=== PATIENT | female | born 1935 | race Caucasian/White ===

== ENCOUNTER 2017-03-10 14:10 | Inpatient (IN) | payer MEDICARE, MEDICAID ==
[2017-03-10 14:38] LABS: ABSOLUTE EOSINOPHILS # (AUTO) 0.1 10^3/uL (0.0-0.6); ABSOLUTE LYMPHOCYTES (AUTO) 1.1 10^3/uL (0.5-4.7); ABSOLUTE MONOCYTES (AUTO) 0.4 10^3/uL (0.1-1.4); ABSOLUTE NEUT (AUTO) 4.5 10^3/uL (1.7-8.2); BASOPHILS % (AUTO) 0.6 % (0-2); EOSINOPHILS % (AUTO) 1.1 % (0-6); HEMATOCRIT 32.1 % (36.0-47.0); HEMOGLOBIN 10.1 g/dL (12.0-15.5); HGB HCT DIFFERENCE -1.8; LYMPHOCYTES % (AUTO) 17.3 % (13-45); MEAN CORPUSCULAR HEMOGLOBIN 27.7 pg (27.0-33.4); MEAN CORPUSCULAR HGB CONC 31.5 g/dL (32.0-36.0); MEAN CORPUSCULAR VOLUME 88 fl (80-97); MONOCYTES % (AUTO) 6.6 % (3-13); RED BLOOD COUNT 3.64 10^6/uL (3.72-5.28); RED CELL DISTRIBUTION WIDTH 17.7 % (11.5-14.0); SEGMENTED NEUTROPHILS % (AUTO) 74.4 % (42-78); WHITE BLOOD COUNT 6.1 10^3/uL (4.0-10.5)
--- NOTE | 2017-03-10 14:48 | ER Document Report ---
ED General - General Chief Complaint: Chest Pain Stated Complaint: CHEST PAIN Time Seen by Provider: 03/10/17 14:13 Mode of Arrival: Medic Information source: Patient Notes: 81-year-old female history of ATab ivy presents with complaints of midsternal chest pain. Patient notes she has CHF is on 2 L nasal cannula at home, has increased it to 3-4 L over the past 3 days. Patient notes lower extremity edema Patient was given nitroglycerin for her chest pain has resolved TRAVEL OUTSIDE OF THE [place] IN LAST 30 DAYS: No - HPI Onset: Other - 3 day duration Onset/Duration: Persistent Quality of pain: Achy Severity: Moderate Pain Level: 3 Associated symptoms: Chest pain, Shortness of breath Exacerbated by: Denies Relieved by: Denies Similar symptoms previously: Yes Recently seen / treated by doctor: Yes - Related Data Allergies/Adverse Reactions: No Known Allergies Allergy (Verified 03/10/17 14:42) Past Medical History - Social History Smoking Status: Never Smoker Cigarette use (# per day): No Chew tobacco use (# tins/day): No Smoking Education Provided: No Family History: Reviewed & Not Pertinent - Past Medical History Cardiac Medical History: Reports: Hx Atrial Fibrillation, Hx Congestive Heart Failure, Hx Hypercholesterolemia, Hx Hypertension Pulmonary Medical History: Reports: Hx Asthma, Hx COPD, Hx Pneumonia Endocrine Medical History: Reports: Hx Diabetes Mellitus Type 2 GI Medical History: Reports: Hx Gastroesophageal Reflux Disease Musculoskeltal Medical History: Reports Hx Arthritis - HANDS AND KNEES Psychiatric Medical History: Reports: Hx Depression Past Surgical History: Reports: Hx Cardiac Catheterization, Hx Hysterectomy, Hx Orthopedic Surgery - B/L knee replacement, Hx Vascular Surgery - Immunizations Hx Diphtheria, Pertussis, Tetanus Vaccination: No Hx Pneumococcal Vaccination: 10/08/14 Review of Systems - Review of Systems Notes: REVIEW OF SYSTEMS: CONSTITUTIONAL : Denies fever, chills, or sweats. Denies recent illness. EENT: Denies eye, ear, throat, or mouth pain or symptoms. Denies nasal or sinus congestion or discharge. Denies throat, tongue, or mouth swelling or difficulty swallowing. CARDIOVASCULAR: Admits to chest pain RESPIRATORY: Admits to shortness of breath GASTROINTESTINAL: Denies abdominal pain or distention. Denies nausea, vomiting , or diarrhea. Denies blood in vomitus, stools, or per rectum. Denies black, tarry stools. Denies constipation. GENITOURINARY: Denies difficulty urinating, painful urination, burning, frequency, blood in urine, or discharge. FEMALE GENITOURINARY: Denies vaginal bleeding, heavy or abnormal periods, irregular periods. Denies vaginal discharge or odor. MUSCULOSKELETAL: Denies back or neck pain or stiffness. Denies joint pain or swelling. SKIN: Denies rash, lesions or sores. HEMATOLOGIC : Denies easy bruising or bleeding. LYMPHATIC: Denies swollen, enlarged glands. NEUROLOGICAL: Denies confusion or altered mental status. Denies passing out or loss of consciousness. Denies dizziness or lightheadedness. Denies headache. Denies weakness or paralysis or loss of use of either side. Denies problems with gait or speech. Denies sensory loss, numbness, or tingling. Denies seizures. PSYCHIATRIC: Denies anxiety or stress. Denies depression, suicidal ideation, or homicidal ideation. ALL OTHER SYSTEMS REVIEWED AND NEGATIVE. Dictation was performed using [employer] voice recognition software PHYSICAL EXAMINATION: GENERAL: Well-appearing, well-nourished and in no acute distress. HEAD: Atraumatic, normocephalic. EYES: Pupils equal round and reactive to light, extraocular movements intact, conjunctiva are normal. ENT: Nares patent, oropharynx clear without exudates. Moist mucous membranes. NECK: Normal range of motion, supple without lymphadenopathy LUNGS: Rhonchi at the bases HEART: irregular rate and rhythm without murmurs ABDOMEN: Soft, nontender, nondistended abdomen. No guarding, no rebound. No masses appreciated. Female : deferred Musculoskeletal: Bilateral lower extremity edema NEUROLOGICAL: Cranial nerves grossly intact. Normal speech, normal gait. Normal sensory, motor exams PSYCH: Normal mood, normal affect. SKIN: Warm, Dry, normal turgor, no rashes or lesions noted. Physical Exam - Vital signs Vitals: Pulse Ox 96 03/10/17 14:16 Course - Re-evaluation Re-evalutation: 03/10/17 14:48 Patient is in A. fib rate between 90s-110 otherwise well-appearing, will admit for chest pain and chf exacerbation 03/10/17 17:49 - Vital Signs Vital signs: Temp Pulse Resp BP Pulse Ox 98.9 F 96 21 H 125/62 98 03/10/17 14:31 03/10/17 14:31 03/10/17 16:00 03/10/17 16:00 03/10/17 16:01 - Laboratory Result Diagrams: 03/10/17 14:20 03/10/17 14:20 Laboratory results interpreted by me: 03/10/17 03/10/17 03/10/17 14:20 14:20 14:20 RBC 3.64 L Hgb 10.1 L Hct 32.1 L MCHC 31.5 L RDW 17.7 H Glucose 139 H NT-Pro-B Natriuret Pep 1470 H - Diagnostic Test Radiology reviewed: Image reviewed, Reports reviewed - EKG Interpretation by Me EKG shows normal: Sinus rhythm, [place], Intervals, QRS Complexes Rhythm: A.Fib Discharge - Discharge Clinical Impression: Congestive heart failure, Hypoxia, Chronic atrial fibrillation Chest pain Qualifiers: Chest pain type: unspecified Qualified Code(s): R07.9 - Chest pain, unspecified Admitting Provider: Hospitalist Unit Admitted: [facility]
[2017-03-10 14:58] LABS: ALANINE AMINOTRANSFERASE 33 U/L (9-52); ALBUMIN 3.5 g/dL (3.5-5.0); ALKALINE PHOSPHATASE 76 U/L (38-126); ANION GAP 11 (5-19); ASPARTATE AMINO TRANSFERASE 30 U/L (14-36); BILIRUBIN,DIRECT 0.3 mg/dL (0.0-0.4); BILIRUBIN,TOTAL 0.7 mg/dL (0.2-1.3); BLOOD UREA NITROGEN 20 mg/dL (7-20); CALCIUM 8.8 mg/dL (8.4-10.2); CARBON DIOXIDE 30 mmol/L (22-30); CHLORIDE 103 mmol/L (98-107); CREATINE KINASE 38 U/L (30-135); GLUCOSE 139 mg/dL (75-110); POTASSIUM 4.1 mmol/L (3.6-5.0); SODIUM 144.4 mmol/L (137-145); TOTAL PROTEIN 7.1 g/dL (6.3-8.2)
[2017-03-10 15:07] LABS: TROPONIN I < 0.012 ng/mL
--- NOTE | 2017-03-10 15:39 | RADIOLOGY REPORT (SQ) ---
EXAM DESCRIPTION: CHEST SINGLE VIEW COMPLETED DATE/TIME: 03/10/2017 2:48 pm REASON FOR STUDY: bed 1 cp COMPARISON: CT chest 12/14/2015, 05/11/2016 Chest films 08/13/2007, 12/14/2015, 06/06/2016 EXAM PARAMETERS: NUMBER OF VIEWS: One view. TECHNIQUE: Single frontal radiographic view of the chest acquired. RADIATION DOSE: NA LIMITATIONS: None. FINDINGS: LUNGS AND PLEURA: No opacities, masses or pneumothorax. No pleural effusion. MEDIASTINUM AND HILAR STRUCTURES: No masses. Contour normal. HEART AND VASCULAR STRUCTURES: Stable mild to moderate cardiomegaly, tortuous uncoiled thoracic aorta unchanged BONES: No acute findings. HARDWARE: None in the chest. OTHER: No other significant finding. IMPRESSION: Stable cardiomegaly. No acute findings TECHNICAL DOCUMENTATION: JOB ID: [id number]
[2017-03-10] MEDS ORDERED: FUROSEMIDE INJ/PF 40 MG/4 ML SDV IV ONE (15:46)
[2017-03-10] MEDS ORDERED: ACETAMINOPHEN 325 MG TABLET PO PRN (16:41)
[2017-03-10] MEDS ORDERED: DEXTROSE 40% GEL 15 GM TUBE PO PRN ×2 (16:45)
[2017-03-10] MEDS ORDERED: ALBUTEROL SULFATE 0.083% NEB 2.5 MG/3 ML AMPUL NEB PRN (16:45)
[2017-03-10] MEDS ORDERED: DEXTROSE 50%-WATER 25 GM/50 ML DISP.SYRIN IV PRN ×2 (16:45)
[2017-03-10] MEDS ORDERED: GLUCAGON,HUMAN RECOMB 1 MG INJ IM PRN (16:45)
[2017-03-10] MEDS ORDERED: INSULIN LISPRO 100 UNIT/ML 3 ML VIAL SUBCUT PRN (16:45)
--- NOTE | 2017-03-10 17:01 | PDOC H&P ---
History of Present Illness Admission Date/PCP: 03/10/17 16:23 PCP: Lexi Yap MD Cardiology Dr. No Patient complains of: Shortness of breath, chest pain History of Present Illness: RACHEL LAN is a 81 year old female with past medical history of CHF, atrial fibrillation, COPD, diabetes, hypertension presents with chronic lower extremity edema and shortness of breath. Over the past several days she has had worsening shortness of breath and chest pressure. She has chronic oxygen dependent at baseline on 2 L nasal cannula, however more recently she has had increased to 4 L nasal cannula. Past Medical History Cardiac Medical History: Reports: Atrial Fibrillation, Congestive Heart Failure , Hyperlipidema, Hypertension Pulmonary Medical History: Reports: Chronic Obstructive Pulmonary Disease (COPD) , Pneumonia Endocrine Medical History: Reports: Diabetes Mellitus Type 2 GI Medical History: Reports: Gastroesophageal Reflux Disease Musculoskeltal Medical History: Reports: Arthritis - HANDS AND KNEES Psychiatric Medical History: Reports: Depression Hematology: Denies: Anemia Past Surgical History Past Surgical History: Reports: Cardiac Catheterization, Hysterectomy, Orthopedic Surgery - B/L knee replacement, Vascular Surgery Social History Information Source: Patient Lives with: Family Smoking Status: Never Smoker Frequency of Alcohol Use: None Hx Recreational Drug Use: No Drugs: None Hx Prescription Drug Abuse: No - Advance Directive Resuscitation Status: Full Code Family History Family History: DM Parental Family History Reviewed: Yes Children Family History Reviewed: Yes Sibling(s) Family History Reviewed.: Yes Medication/Allergy Home Medications: Atorvastatin Calcium 40 mg PO QHS 11/19/15 Gabapentin 300 mg PO DAILY 11/19/15 Lisinopril 20 mg PO BID 11/19/15 Metformin HCl 500 mg PO DAILY 11/19/15 Paroxetine HCl [Paxil] 10 mg PO DAILY 11/19/15 Ranitidine HCl 300 mg PO QHS 11/19/15 Apixaban [Eliquis 5 mg Tablet] 5 mg PO BID 12/14/15 Metoprolol Tartrate [Lopressor 25 mg Tablet] 12.5 mg PO Q12 12/14/15 Albuterol Sulfate [Ventolin 0.083% Neb 2.5 mg/3 mL Ampul] 2.5 mg NEB RTQ4HP PRN vial.neb 12/17/15 Furosemide [Lasix 40 mg Tablet] 40 mg PO DAILY #30 tablet 12/17/15 Ipratropium/Albuterol Sulfate [Combivent Inhaler] 14.7 gm IH QID #1 aer.w.adap 12/17/15 Amox Tr/Potassium Clavulanate [Augmentin "500" Tablet] 1 tab PO Q8 #15 tablet 05/17/16 Diltiazem HCl [Cardizem Cd 120 mg Capsule] 120 mg PO Q12 #60 cap.sr.24h Omeprazole 40 mg PO BID #28 capsule. 05/17/16 Allergies/Adverse Reactions: No Known Allergies Allergy (Verified 03/10/17 14:42) Review of Systems Constitutional: ABSENT: chills, fever(s), headache(s), weight gain, weight loss Eyes: ABSENT: visual disturbances Ears: ABSENT: hearing changes Cardiovascular: PRESENT: chest pain, dyspnea on exertion, edema. ABSENT: orthropnea, palpitations Respiratory: PRESENT: dyspnea. ABSENT: cough, hemoptysis Gastrointestinal: ABSENT: abdominal pain, constipation, diarrhea, hematemesis, hematochezia, nausea, vomiting Genitourinary: ABSENT: dysuria, hematuria Musculoskeletal: ABSENT: joint swelling Integumentary: ABSENT: rash, wounds Neurological: ABSENT: abnormal gait, abnormal speech, confusion, dizziness, focal weakness, syncope Psychiatric: ABSENT: anxiety, depression, homidical ideation, suicidal ideation Endocrine: ABSENT: cold intolerance, heat intolerance, polydipsia, polyuria Hematologic/Lymphatic: ABSENT: easy bleeding, easy bruising Physical Exam Vital Signs: Temp Pulse Resp BP Pulse Ox 98.9 F 96 20 116/67 97 03/10/17 14:31 03/10/17 14:31 03/10/17 15:01 03/10/17 15:01 03/10/17 15:01 PHYSICAL EXAM: GENERAL: Appears well, no acute distress HEENT: Normocephalic, no scleral icterus, conjunctiva clear, EOEM intact, PERRLA , moist mucous membranes NECK: trachea midline, no thyromegally RESPIRATORY: Crackles in posterior lung bases CARDIAC: Irregular rhythm, normal rate ABDOMEN: Soft, no distension, no tenderness, no guarding, normal bowel sounds, negative Grace sign RECTAL: deferred : deferred EXTREMITIES: 3+ bilateral lower extremity edema MUSCULOSKELETAL: No joint swelling or deformity VASCULAR: normal peripheral pulses NEUROLOGIC: Alert, oriented to person/place/time, normal speech, cranial nerves grossly intact, 5/5 strength in all extremities, tactile sensation intact in all extremities SKIN: No rash, no wounds, no worrisome skin lesions PSYCHIATRIC: Normal mood, normal affect Results Laboratory Results: Labs- All tests 24 hr 03/10/17 03/10/17 03/10/17 14:20 14:20 14:20 WBC 6.1 RBC 3.64 L Hgb 10.1 L Hct 32.1 L MCV 88 MCH 27.7 MCHC 31.5 L RDW 17.7 H Plt Count 176 Seg Neutrophils % 74.4 Lymphocytes % 17.3 Monocytes % 6.6 Eosinophils % 1.1 Basophils % 0.6 Absolute Neutrophils 4.5 Absolute Lymphocytes 1.1 Absolute Monocytes 0.4 Absolute Eosinophils 0.1 Absolute Basophils 0.0 Sodium 144.4 Potassium 4.1 Chloride 103 Carbon Dioxide 30 Anion Gap 11 BUN 20 Creatinine 0.90 Est GFR ( Amer) > 60 Est GFR (Non-Af Amer) > 60 Glucose 139 H Calcium 8.8 Total Bilirubin 0.7 Direct Bilirubin 0.3 Indirect Bilirubin Not Reportable Neonat Total Bilirubin Not Reportable AST 30 ALT 33 Alkaline Phosphatase 76 Creatine Kinase 38 CK-MB (CK-2) 0.50 Troponin I < 0.012 NT-Pro-B Natriuret Pep Total Protein 7.1 Albumin 3.5 TSH 03/10/17 03/10/17 14:20 14:20 WBC RBC Hgb Hct MCV MCH MCHC RDW Plt Count Seg Neutrophils % Lymphocytes % Monocytes % Eosinophils % Basophils % Absolute Neutrophils Absolute Lymphocytes Absolute Monocytes Absolute Eosinophils Absolute Basophils Sodium Potassium Chloride Carbon Dioxide Anion Gap BUN Creatinine Est GFR ( Amer) Est GFR (Non-Af Amer) Glucose Calcium Total Bilirubin Direct Bilirubin Indirect Bilirubin Neonat Total Bilirubin AST ALT Alkaline Phosphatase Creatine Kinase CK-MB (CK-2) Troponin I NT-Pro-B Natriuret Pep 1470 H Total Protein Albumin TSH 1.40 Impressions: Chest X-Ray 03/10/17 14:13 IMPRESSION: Stable cardiomegaly. No acute findings Assessment & Plan - Diagnosis (1) Chest pain Qualifiers: Chest pain type: unspecified Qualified Code(s): R07.9 - Chest pain, unspecified Is this a current diagnosis for this admission?: YesPlan: Monitor on telemetry. Serial cardiac enzymes to rule out [place]. PE unlikely given the fact the patient on full anticoagulation at baseline. (2) Acute on chronic respiratory failure with hypoxemia Is this a current diagnosis for this admission?: YesPlan: Likely multifactorial in nature to include COPD and decompensated CHF. Chronic home oxygen dependent at baseline. (3) Acute diastolic CHF (congestive heart failure) Is this a current diagnosis for this admission?: YesPlan: Echocardiogram performed 05/15/2016 showed normal EF, LVH, mild to moderate mitral regurgitation, unable to assess diastolic function secondary to atrial fibrillation. Start Lasix 40 mg IV every 12 hours. Monitor intake and output, daily weight. Continue metoprolol and lisinopril. Followed by Dr. No of cardiology as an outpatient. (4) Diabetes Qualifiers: Diabetes mellitus type: type 2 Diabetes mellitus complication detail: with other circulatory complications Diabetes mellitus intermediate manager insulin use : without intermediate manager use Is this a current diagnosis for this admission?: YesPlan: Continue metformin. Sliding scale insulin. (5) Chronic atrial fibrillation Is this a current diagnosis for this admission?: YesPlan: Heart rate stable on metoprolol. Continue Eliquis. (6) COPD (chronic obstructive pulmonary disease) Qualifiers: COPD type: unspecified COPD Qualified Code(s): J44.9 - Chronic obstructive pulmonary disease, unspecified Is this a current diagnosis for this admission?: YesPlan: As needed albuterol. - Time Time Spent: Greater than 70 Minutes
[2017-03-10] MEDS: APIXABAN 5 MG TABLET PO SCH (18:00)
[2017-03-10] MEDS: FUROSEMIDE INJ/PF 20 MG/2 ML SDV IV SCH (18:01)
[2017-03-10 21:02] LABS: CREATINE KINASE MB 0.63 ng/mL (<4.55)
[2017-03-10 21:06] LABS: TROPONIN I < 0.012 ng/mL
[2017-03-10] MEDS: ATORVASTATIN CALCIUM 40 MG TABLET PO SCH (21:33)
[2017-03-10] MEDS: FAMOTIDINE 20 MG TABLET PO SCH (21:33)
[2017-03-10] MEDS: LISINOPRIL 10 MG TABLET PO SCH (21:33)
[2017-03-10] MEDS: METOPROLOL TARTRATE 25 MG TABLET PO SCH (21:34)
[2017-03-11 02:45] LABS: ABSOLUTE EOSINOPHILS # (AUTO) 0.1 10^3/uL (0.0-0.6); ABSOLUTE LYMPHOCYTES (AUTO) 1.3 10^3/uL (0.5-4.7); ABSOLUTE MONOCYTES (AUTO) 0.3 10^3/uL (0.1-1.4); ABSOLUTE NEUT (AUTO) 3.6 10^3/uL (1.7-8.2); BASOPHILS % (AUTO) 0.8 % (0-2); HEMATOCRIT 31.4 % (36.0-47.0); HEMOGLOBIN 9.7 g/dL (12.0-15.5); HGB HCT DIFFERENCE -2.3; LYMPHOCYTES % (AUTO) 24.7 % (13-45); MEAN CORPUSCULAR HEMOGLOBIN 27.3 pg (27.0-33.4); MEAN CORPUSCULAR VOLUME 88 fl (80-97); MONOCYTES % (AUTO) 6.2 % (3-13); RED BLOOD COUNT 3.55 10^6/uL (3.72-5.28); RED CELL DISTRIBUTION WIDTH 16.9 % (11.5-14.0); SEGMENTED NEUTROPHILS % (AUTO) 66.3 % (42-78); WHITE BLOOD COUNT 5.4 10^3/uL (4.0-10.5)
[2017-03-11 03:08] LABS: CREATINE KINASE MB 0.75 ng/mL (<4.55)
[2017-03-11 03:12] LABS: FREE T3 2.9 pg/mL (2.77-5.27)
[2017-03-11 03:18] LABS: TROPONIN I < 0.012 ng/mL
[2017-03-11 03:26] LABS: THYROID STIMULATING HORMONE 1.13 uIU/mL (0.47-4.68)
[2017-03-11] MEDS: FUROSEMIDE INJ/PF 20 MG/2 ML SDV IV SCH ×2 (05:17→17:56)
[2017-03-11] MEDS: LANSOPRAZOLE 30 MG TAB.RAP.DR PO SCH ×2 (08:37→16:09)
--- NOTE | 2017-03-11 09:20 | PDOC PROGRESS REPORT ---
Subjective Progress Note for:: 03/11/17 Subjective:: Patient feels generally better and shortness of breath has improved. She states she is having good urine output with IV Lasix. She is sitting in the bedside chair in no distress. Patient denies fever, chills, headache, new focal weakness, chest pain, abdominal pain, nausea, vomiting, diarrhea, constipation. Physical Exam Vital Signs: Temp Pulse Resp BP Pulse Ox 97.4 F 89 16 114/58 L 100 03/11/17 07:41 03/11/17 07:41 03/11/17 07:41 03/11/17 07:41 03/11/17 07:41 Intake & Output 03/10/17 03/11/17 03/12/17 06:59 06:59 06:59 Intake Total 256 Output Total 1100 Balance -844 Weight 117 kg GENERAL: No acute distress HEENT: Conjunctiva clear, nonicteric, moist mucous membranes, no JVD, midline trachea RESPIRATORY: Clear to auscultation bilaterally, no wheezes, no rhonchi CARDIAC: Regular rate and rhythm, no murmurs/gallops/rubs ABDOMEN: Soft, nondistended, nontender, positive bowel sounds, no rebound, no guarding EXTREMETIES: Pitting edema bilateral lower extremities NEUROLOGIC: Alert, oriented to person/place/time, CN's grossly intact, no focal deficits SKIN: No rash, wounds PSYCH: Normal mood, normal affect Results Laboratory Results: 03/11/17 02:33 03/11/17 03/11/17 02:33 02:33 WBC 5.4 RBC 3.55 L Hgb 9.7 L Hct 31.4 L MCV 88 MCH 27.3 MCHC 31.0 L RDW 16.9 H Plt Count 149 L Seg Neutrophils % 66.3 Lymphocytes % 24.7 Monocytes % 6.2 Eosinophils % 2.0 Basophils % 0.8 Absolute Neutrophils 3.6 Absolute Lymphocytes 1.3 Absolute Monocytes 0.3 Absolute Eosinophils 0.1 Absolute Basophils 0.0 TSH 1.13 Free T4 1.28 Free T3 pg/mL 2.90 03/10/17 03/10/17 03/11/17 20:28 20:28 02:33 Creatine Kinase 38 36 CK-MB (CK-2) 0.63 Troponin I < 0.012 03/11/17 02:33 Creatine Kinase CK-MB (CK-2) 0.75 Troponin I < 0.012 Impressions: Chest X-Ray 03/10/17 14:13 IMPRESSION: Stable cardiomegaly. No acute findings Assessment & Plan - Diagnosis (1) Chest pain Qualifiers: Chest pain type: unspecified Qualified Code(s): R07.9 - Chest pain, unspecified Is this a current diagnosis for this admission?: YesPlan: Monitor on telemetry. Serial cardiac enzymes negative. Stress test prior to discharge once CHF more compensated. PE unlikely given the fact the patient on full anticoagulation at baseline. (2) Acute on chronic respiratory failure with hypoxemia Is this a current diagnosis for this admission?: YesPlan: Likely multifactorial in nature to include COPD and decompensated CHF. Chronic home oxygen dependent at baseline. (3) Acute diastolic CHF (congestive heart failure) Is this a current diagnosis for this admission?: YesPlan: Echocardiogram performed 05/15/2016 showed normal EF, LVH, mild to moderate mitral regurgitation, unable to assess diastolic function secondary to atrial fibrillation. Continue Lasix 40 mg IV every 12 hours. Monitor intake and output, daily weight. Continue metoprolol and lisinopril. Followed by Dr. No of cardiology as an outpatient. (4) Diabetes Qualifiers: Diabetes mellitus type: type 2 Diabetes mellitus complication detail: with other circulatory complications Diabetes mellitus residential insulin use : without terminal clerk use Is this a current diagnosis for this admission?: YesPlan: Continue metformin. Sliding scale insulin. (5) Chronic atrial fibrillation Is this a current diagnosis for this admission?: YesPlan: Heart rate stable on metoprolol. Continue Eliquis. (6) COPD (chronic obstructive pulmonary disease) Qualifiers: COPD type: unspecified COPD Qualified Code(s): J44.9 - Chronic obstructive pulmonary disease, unspecified Is this a current diagnosis for this admission?: YesPlan: As needed albuterol. - Time Time Spent with patient: 35 or more minutes
--- NOTE | 2017-03-11 09:42 | EKG REPORT ---
SEVERITY:- ABNORMAL ECG - ATRIAL FIBRILLATION : Confirmed by: Leyla Ragland 11-Mar-2017 09:42:31
--- NOTE | 2017-03-11 09:43 | EKG REPORT ---
SEVERITY:- ABNORMAL ECG - ATRIAL FIBRILLATION, V-RATE 68-134 : Confirmed by: Leyla Ragland 11-Mar-2017 09:42:42
[2017-03-11] MEDS: METOPROLOL TARTRATE 25 MG TABLET PO SCH ×2 (09:44→21:12)
[2017-03-11] MEDS: LISINOPRIL 10 MG TABLET PO SCH ×2 (09:45→21:13)
[2017-03-11] MEDS: PAROXETINE HCL 20 MG TABLET PO SCH (09:45)
[2017-03-11] MEDS: METFORMIN HCL 500 MG TABLET PO SCH (09:45)
[2017-03-11] MEDS: APIXABAN 5 MG TABLET PO SCH ×2 (09:46→17:55)
[2017-03-11] MEDS: ATORVASTATIN CALCIUM 40 MG TABLET PO SCH (21:12)
[2017-03-11] MEDS: FAMOTIDINE 20 MG TABLET PO SCH (21:13)
[2017-03-12] MEDS: FUROSEMIDE INJ/PF 20 MG/2 ML SDV IV SCH ×2 (05:09→17:22)
[2017-03-12 06:50] LABS: ABSOLUTE EOSINOPHILS # (AUTO) 0.1 10^3/uL (0.0-0.6); ABSOLUTE LYMPHOCYTES (AUTO) 1.2 10^3/uL (0.5-4.7); ABSOLUTE MONOCYTES (AUTO) 0.4 10^3/uL (0.1-1.4); ABSOLUTE NEUT (AUTO) 4.2 10^3/uL (1.7-8.2); BASOPHILS % (AUTO) 0.4 % (0-2); EOSINOPHILS % (AUTO) 2.2 % (0-6); HEMATOCRIT 34.1 % (36.0-47.0); HEMOGLOBIN 10.6 g/dL (12.0-15.5); HGB HCT DIFFERENCE -2.3; LYMPHOCYTES % (AUTO) 19.9 % (13-45); MEAN CORPUSCULAR HEMOGLOBIN 27.3 pg (27.0-33.4); MEAN CORPUSCULAR VOLUME 88 fl (80-97); MONOCYTES % (AUTO) 7.2 % (3-13); RED BLOOD COUNT 3.87 10^6/uL (3.72-5.28); RED CELL DISTRIBUTION WIDTH 17.3 % (11.5-14.0); SEGMENTED NEUTROPHILS % (AUTO) 70.3 % (42-78); WHITE BLOOD COUNT 5.9 10^3/uL (4.0-10.5)
[2017-03-12 07:01] LABS: ANION GAP 11 (5-19); BLOOD UREA NITROGEN 29 mg/dL (7-20); CALCIUM 8.9 mg/dL (8.4-10.2); CARBON DIOXIDE 35 mmol/L (22-30); CHLORIDE 96 mmol/L (98-107); CREATININE RESULT 1.08 mg/dL (0.52-1.25); GLUCOSE 99 mg/dL (75-110)
[2017-03-12] MEDS: LANSOPRAZOLE 30 MG TAB.RAP.DR PO SCH ×2 (08:20→15:33)
[2017-03-12] MEDS ORDERED: TEMAZEPAM 7.5 MG CAPSULE PO PRN (08:55)
[2017-03-12] MEDS: APIXABAN 5 MG TABLET PO SCH ×2 (09:43→17:22)
[2017-03-12] MEDS: METFORMIN HCL 500 MG TABLET PO SCH (09:43)
[2017-03-12] MEDS: METOPROLOL TARTRATE 25 MG TABLET PO SCH ×2 (09:43→21:18)
[2017-03-12] MEDS: PAROXETINE HCL 20 MG TABLET PO SCH (09:43)
[2017-03-12] MEDS: LISINOPRIL 10 MG TABLET PO SCH ×2 (09:43→21:17)
--- NOTE | 2017-03-12 09:56 | RADIOLOGY REPORT (SQ) ---
EXAM DESCRIPTION: CHEST SINGLE VIEW COMPLETED DATE/TIME: 03/12/2017 8:55 am REASON FOR STUDY: chf COMPARISON: 03/10/2017 EXAM PARAMETERS: NUMBER OF VIEWS: One view. TECHNIQUE: Single frontal radiographic view of the chest acquired. RADIATION DOSE: NA LIMITATIONS: None. FINDINGS: LUNGS AND PLEURA: Linear opacity in the left base is consistent with atelectasis. No cons olidation or effusions. MEDIASTINUM AND HILAR STRUCTURES: No masses. Contour normal. HEART AND VASCULAR STRUCTURES: Heart is enlarged but stable in appearance. Pulmonary arteries are pr ominent. No failure. BONES: No acute findings. HARDWARE: None in the chest. OTHER: No other significant finding. IMPRESSION: Stable chest with cardiomegaly. Minimal linear atelectasis in the left base. TECHNICAL DOCUMENTATION: JOB ID: [id number]
--- NOTE | 2017-03-12 13:09 | PDOC PROGRESS REPORT ---
Subjective Progress Note for:: 03/12/17 Subjective:: Patient complains of insomnia overnight. Shortness of breath is improved. Patient denies fever, chills, headache, new focal weakness, chest pain, abdominal pain, nausea, vomiting, diarrhea, constipation. Physical Exam Vital Signs: Temp Pulse Resp BP Pulse Ox 98.7 F 109 H 19 112/56 L 95 03/12/17 12:21 03/12/17 12:21 03/12/17 12:21 03/12/17 12:21 03/12/17 12:21 Intake & Output 03/11/17 03/12/17 03/13/17 06:59 06:59 06:59 Intake Total 256 1538 1183 Output Total 1100 1100 1250 Balance -844 438 -67 Weight 117 kg 117.3 kg GENERAL: No acute distress HEENT: Conjunctiva clear, nonicteric, moist mucous membranes, no JVD, midline trachea RESPIRATORY: Clear to auscultation bilaterally, no wheezes, no rhonchi CARDIAC: Regular rate and rhythm, no murmurs/gallops/rubs ABDOMEN: Soft, nondistended, nontender, positive bowel sounds, no rebound, no guarding EXTREMETIES: Pitting edema bilateral lower extremities NEUROLOGIC: Alert, oriented to person/place/time, CN's grossly intact, no focal deficits SKIN: No rash, wounds PSYCH: Normal mood, normal affect Results Laboratory Results: 03/12/17 05:43 03/12/17 05:43 03/12/17 03/12/17 05:43 05:43 WBC 5.9 RBC 3.87 Hgb 10.6 L Hct 34.1 L MCV 88 MCH 27.3 MCHC 31.0 L RDW 17.3 H Plt Count 158 Seg Neutrophils % 70.3 Lymphocytes % 19.9 Monocytes % 7.2 Eosinophils % 2.2 Basophils % 0.4 Absolute Neutrophils 4.2 Absolute Lymphocytes 1.2 Absolute Monocytes 0.4 Absolute Eosinophils 0.1 Absolute Basophils 0.0 Sodium 142.0 Potassium 4.0 Chloride 96 L Carbon Dioxide 35 H Anion Gap 11 BUN 29 H Creatinine 1.08 Est GFR ( Amer) 59 L Est GFR (Non-Af Amer) 48 L Glucose 99 Calcium 8.9 03/10/17 03/10/17 03/11/17 20:28 20:28 02:33 Creatine Kinase 38 36 CK-MB (CK-2) 0.63 Troponin I < 0.012 NT-Pro-B Natriuret Pep 03/11/17 03/11/17 03/11/17 02:33 08:50 08:50 Creatine Kinase 33 CK-MB (CK-2) 0.75 0.80 Troponin I < 0.012 NT-Pro-B Natriuret Pep 03/12/17 05:43 Creatine Kinase CK-MB (CK-2) Troponin I NT-Pro-B Natriuret Pep 923 H Impressions: Chest X-Ray 03/12/17 06:00 IMPRESSION: Stable chest with cardiomegaly. Minimal linear atelectasis in the left base. Assessment & Plan - Diagnosis (1) Chest pain Qualifiers: Chest pain type: unspecified Qualified Code(s): R07.9 - Chest pain, unspecified Is this a current diagnosis for this admission?: YesPlan: Monitor on telemetry. Serial cardiac enzymes negative. Stress test in a.m. PE unlikely given the fact the patient on full anticoagulation at baseline. (2) Acute on chronic respiratory failure with hypoxemia Is this a current diagnosis for this admission?: YesPlan: Likely multifactorial in nature to include COPD and decompensated CHF. Chronic home oxygen dependent at baseline. (3) Acute diastolic CHF (congestive heart failure) Is this a current diagnosis for this admission?: YesPlan: Echocardiogram performed 05/15/2016 showed normal EF, LVH, mild to moderate mitral regurgitation, unable to assess diastolic function secondary to atrial fibrillation. Continue Lasix 40 mg IV every 12 hours. Monitor intake and output, daily weight. Continue metoprolol and lisinopril. Followed by Dr. No of cardiology as an outpatient. (4) Diabetes Qualifiers: Diabetes mellitus type: type 2 Diabetes mellitus complication detail: with other circulatory complications Diabetes mellitus snf insulin use : without sustainment logistics analyst use Is this a current diagnosis for this admission?: YesPlan: Continue metformin. Sliding scale insulin. (5) Chronic atrial fibrillation Is this a current diagnosis for this admission?: YesPlan: Heart rate stable on metoprolol. Continue Eliquis. (6) COPD (chronic obstructive pulmonary disease) Qualifiers: COPD type: unspecified COPD Qualified Code(s): J44.9 - Chronic obstructive pulmonary disease, unspecified Is this a current diagnosis for this admission?: YesPlan: As needed albuterol. - Time Time Spent with patient: 25-34 minutes
[2017-03-12] MEDS: FAMOTIDINE 20 MG TABLET PO SCH (21:16)
[2017-03-12] MEDS: ATORVASTATIN CALCIUM 40 MG TABLET PO SCH (21:16)
[2017-03-13] MEDS: FUROSEMIDE INJ/PF 20 MG/2 ML SDV IV SCH (05:21)
[2017-03-13 06:07] LABS: ANION GAP 10 (5-19); BLOOD UREA NITROGEN 33 mg/dL (7-20); CALCIUM 8.8 mg/dL (8.4-10.2); CARBON DIOXIDE 35 mmol/L (22-30); CHLORIDE 98 mmol/L (98-107); CREATININE RESULT 1.02 mg/dL (0.52-1.25); GLUCOSE 111 mg/dL (75-110); POTASSIUM 3.7 mmol/L (3.6-5.0); SODIUM 142.5 mmol/L (137-145)
[2017-03-13] MEDS ORDERED: DIPHENHYDRAMINE HCL 50 MG/ML VIAL IV PRN (07:47)
[2017-03-13] MEDS: LANSOPRAZOLE 30 MG TAB.RAP.DR PO SCH ×2 (08:13→16:32)
[2017-03-13] MEDS ORDERED: POTASSIUM CHLORIDE 10 MEQ TABLET.SA PO ONE (08:15)
[2017-03-13] MEDS ORDERED: DIPHENHYDRAMINE HCL 50 MG/ML VIAL IV ONE (08:15)
[2017-03-13] MEDS ORDERED: FAMOTIDINE INJ/PF 20 MG/2 ML SDV IV ONE (08:15)
[2017-03-13] MEDS ORDERED: METHYLPREDNISOLONE INJ 125 MG/2 ML SDV IV ONE (08:15)
--- NOTE | 2017-03-13 09:28 | PDOC PROGRESS REPORT ---
Subjective Progress Note for:: 03/13/17 Subjective:: Called by nursing staff for apparent tongue swelling. Patient reports that this does happen to her on occasion. Patient did receive a one-time dose of Restoril last evening. Patient denies chest pain, shortness of breath, nausea, vomiting, fever, chills , diarrhea, new onset weakness, rash. Admits to constipation. Physical Exam Vital Signs: Temp Pulse Resp BP Pulse Ox 97.9 F 103 H 20 97/50 L 97 03/13/17 03:10 03/13/17 03:10 03/13/17 03:10 03/13/17 03:10 03/13/17 03:10 Intake & Output 03/12/17 03/13/17 03/14/17 06:59 06:59 06:59 Intake Total 1538 1713 Output Total 1100 1750 Balance 438 -37 Weight 117.3 kg 114.4 kg Exam: General: Sleeping but easily arousable, oriented x3, no acute respiratory distress,obese HEENT: AT/NC, PERRL,EOMI, tongue enlargement with protrusion, angular cheilosis, oropharynx is dry, pink, no scleral icterus, no conjunctival injection Neck: No JVD, trachea midline, no stridor Chest: Diminished bilateral bases CV: IRR, normal S1 and S2, no rub or gallop; +2/6 sm apex Abdomen: Soft, nontender to palpation, mildly distended, hypoactive bowel sounds ; no rebound, rigidity, or guarding Extremities: No cyanosis, clubbing; +1 edema Neuro: Cranial nerves II through XII are grossly intact without focal deficits; awake alert and oriented x3 Psych: Normal mood and affect Skin: No rashes or lesions Results Laboratory Results: 03/12/17 05:43 03/13/17 04:46 03/13/17 04:46 Sodium 142.5 Potassium 3.7 Chloride 98 Carbon Dioxide 35 H Anion Gap 10 BUN 33 H Creatinine 1.02 Est GFR ( Amer) > 60 Est GFR (Non-Af Amer) 52 L Glucose 111 H Calcium 8.8 03/10/17 03/10/17 03/11/17 20:28 20:28 02:33 Creatine Kinase 38 36 CK-MB (CK-2) 0.63 Troponin I < 0.012 NT-Pro-B Natriuret Pep 03/11/17 03/11/17 03/11/17 02:33 08:50 08:50 Creatine Kinase 33 CK-MB (CK-2) 0.75 0.80 Troponin I < 0.012 NT-Pro-B Natriuret Pep 03/12/17 05:43 Creatine Kinase CK-MB (CK-2) Troponin I NT-Pro-B Natriuret Pep 923 H Impressions: Chest X-Ray 03/12/17 06:00 IMPRESSION: Stable chest with cardiomegaly. Minimal linear atelectasis in the left base. Assessment & Plan - Diagnosis (1) Mild tongue swelling Is this a current diagnosis for this admission?: YesPlan: Differential includes jenny angioedema, allergic reaction, hereditary angioedema. Will give patient Solu-Medrol, Benadryl, Pepcid. Monitor for improvement or worsening. Stop Lisinopril. Stop Restoril. (2) Constipation Qualifiers: Constipation type: unspecified constipation type Qualified Code(s): K59.00 - Constipation, unspecified Is this a current diagnosis for this admission?: YesPlan: Odilon and miguel (3) Acute diastolic CHF (congestive heart failure) Is this a current diagnosis for this admission?: YesPlan: Patient is currently still mildly volume overloaded. Echocardiogram performed 05/15/2016 showed normal EF, LVH, mild to moderate mitral regurgitation, unable to assess diastolic function secondary to atrial fibrillation. Patient on metoprolol, Lasix, and transitioning to Cozaar from lisinopril. To oral Lasix from IV. (4) Acute on chronic respiratory failure with hypoxemia Is this a current diagnosis for this admission?: YesPlan: Improved. Patient reports that she normally uses oxygen at home. (5) Chest pain Qualifiers: Chest pain type: unspecified Qualified Code(s): R07.9 - Chest pain, unspecified Is this a current diagnosis for this admission?: YesPlan: This test was deferred this morning secondary to tongue swelling. Patient stress test tomorrow. (6) Chronic atrial fibrillation Is this a current diagnosis for this admission?: YesPlan: Rate not controlled. Transition patient to metoprolol succinate 25 mg p.o. twice daily and resume patient's home Cardizem. on Eliquis. (7) Diabetes Qualifiers: Diabetes mellitus type: type 2 Diabetes mellitus complication detail: with other circulatory complications Diabetes mellitus detention insulin use : without intermediate designer use Is this a current diagnosis for this admission?: YesPlan: Stop Accu-Cheks. Patient's blood sugars have been under 120. Stop patient's metformin. Generally not recommended for patients over 80. Will defer this to her primary care physician as an outpatient. Will consider resuming this if patient's sugars are poorly controlled. (8) COPD (chronic obstructive pulmonary disease) Qualifiers: COPD type: unspecified COPD Qualified Code(s): J44.9 - Chronic obstructive pulmonary disease, unspecified Is this a current diagnosis for this admission?: YesPlan: Part stopping smoking 19 years ago. On nebulized treatments as needed. Continue oxygen. (9) Morbid obesity with alveolar hypoventilation Is this a current diagnosis for this admission?: YesPlan: Healthy weight loss. Co-Morbid condition with her current breathing difficulties. (10) Angular cheilosis Is this a current diagnosis for this admission?: YesPlan: Give patient fluconazole for this. A multivitamin. (11) Anemia Qualifiers: Anemia type: unspecified type Qualified Code(s): D64.9 - Anemia, unspecified Is this a current diagnosis for this admission?: YesPlan: Recommend outpatient evaluation for this. - Time Time Spent with patient: 35 or more minutes Medications reviewed and adjusted accordingly: Yes Anticipated discharge: Home with Homehealth Within: within 48 hours - Inpatient Certification Based on my medical assessment, after consideration of the patient's comorbidities, presenting symptoms, or acuity I expect that the services needed warrant INPATIENT care.: Yes I certify that my determination is in accordance with my understanding of Medicare's requirements for reasonable and necessary INPATIENT services [42 CFR 412.3e].: Yes Medical Necessity: Risk of Complication if Not Cared For in Hospital 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
[2017-03-13] MEDS: MULTIVITAMINS W-IRON TABLET, CHEWABLE PO SCH (09:41)
[2017-03-13] MEDS: APIXABAN 5 MG TABLET PO SCH ×2 (09:41→17:09)
[2017-03-13] MEDS: FLUCONAZOLE 100 MG TABLET PO SCH (09:42)
[2017-03-13] MEDS: METOPROLOL SUCCINATE 25 MG TAB.SR.24H PO SCH ×2 (09:42→21:45)
[2017-03-13] MEDS: PAROXETINE HCL 20 MG TABLET PO SCH (09:42)
[2017-03-13] MEDS: LOSARTAN POTASSIUM 25 MG TABLET PO SCH ×2 (09:43→21:44)
[2017-03-13] MEDS: DILTIAZEM HCL 120 MG CAP.SR.24H PO SCH ×2 (09:43→21:45)
[2017-03-13] MEDS: DOCUSATE SODIUM 100 MG CAPSULE PO SCH ×2 (09:44→17:09)
[2017-03-13] MEDS: FUROSEMIDE 40 MG TABLET PO SCH ×2 (09:44→17:09)
[2017-03-13] MEDS ORDERED: (PENDING PHARMACY ID) (Paroxetine Hcl [Paxil] 10 MG) PO SCH (10:00)
[2017-03-13] MEDS ORDERED: FUROSEMIDE INJ/PF 20 MG/2 ML SDV IV SCH (10:00)
[2017-03-13] MEDS: ATORVASTATIN CALCIUM 40 MG TABLET PO SCH (21:45)
[2017-03-13] MEDS ORDERED: (PENDING PHARMACY ID) (Ranitidine Hcl [Zantac] 300 MG) PO SCH (22:00)
[2017-03-13] MEDS ORDERED: FAMOTIDINE INJ/PF 20 MG/2 ML SDV IV SCH (22:00)
[2017-03-13] MEDS ORDERED: SENNOSIDES/DOCUSATE 8.6-50 MG 1 EACH TABLET PO SCH (22:00)
[2017-03-14] MEDS: LANSOPRAZOLE 30 MG TAB.RAP.DR PO SCH ×2 (07:54→16:41)
[2017-03-14] MEDS: FLUCONAZOLE 100 MG TABLET PO SCH (12:16)
[2017-03-14] MEDS: DOCUSATE SODIUM 100 MG CAPSULE PO SCH ×2 (12:17→18:37)
[2017-03-14] MEDS: MULTIVITAMINS W-IRON TABLET, CHEWABLE PO SCH (12:18)
[2017-03-14] MEDS: PAROXETINE HCL 20 MG TABLET PO SCH (12:19)
[2017-03-14] MEDS: METOPROLOL SUCCINATE 25 MG TAB.SR.24H PO SCH ×2 (12:26→21:18)
[2017-03-14] MEDS: APIXABAN 5 MG TABLET PO SCH ×2 (12:35→18:37)
[2017-03-14] MEDS: DILTIAZEM HCL 120 MG CAP.SR.24H PO SCH ×2 (12:36→21:18)
[2017-03-14] MEDS: FUROSEMIDE 40 MG TABLET PO SCH ×2 (12:36→18:37)
[2017-03-14] MEDS: LOSARTAN POTASSIUM 25 MG TABLET PO SCH ×2 (12:37→21:17)
[2017-03-14] MEDS ORDERED: AMINOPHYLLINE INJ/PF 250 MG/10 ML SDV IV ONE (13:05)
[2017-03-14] MEDS ORDERED: REGADENOSON INJ 0.4 MG/5 ML DISP.SYRIN IV ONE (13:05)
--- NOTE | 2017-03-14 15:51 | DRAGON STRESS TEST REPORT ---
LexiScan Nuclear Stress Test using single photon emmision computerized tomography. Indication : Patient with Chest pain and dyspnea. CAD risk factors: hypertension, diabetes and dyslipidemia Resting EKG: Atrial fibrillation with no significant baseline ST segment changes. Stress EKG: No significant additional EKG changes noted with LexiScan bolus. Reason for termination: Protocol. Procedure report : Baseline heart rate 86 beats per minute with blood pressure of 110/48. Patient had no significant complaints. Heart rate at 2 minutes post bolus 106 with a blood pressure of 90/43. At 3 minutes post bolus heart rate 93 with blood pressure of 86/43. Recovery heart rate 89 with blood pressure off 104/46. No significant EKG changes were noted. Patient had no significant complaints during the procedure or postprocedure. Conclusions: Normal EKG and hemodynamic response to IV LexiScan. Nuclear data: At rest the patient was given 14.60 millicuries of technetium 99 sestamibi injected intravenously. As per protocol rest non gated SPECT images were obtained. Subsequently the patient was given intravenous LexiScan at a dose of 0.4 mg in 5 mL intravenously, followed by flush with normal saline. Immediately post LexiScan bolus, stress dose of 45.1 millicuries of technetium 99 sestamibi was injected intravenously. As per protocol stress gated images were obtained. Nuclear interpretation: Both raw and processed data were used for interpretation. Visual, qualitative, computer-generated quantitative data was used. There was good myocardial uptake of technetium compound. Motion artifact and soft tissue attenuations were noted. Motion artifact was significantly prominent in both rest and stress images and this caused some fixed perfusion defects but are felt to be artifactual. No definitive areas of transient or fixed perfusion defect noted. EKG gated imaging showed LV EF at 56 %. T. I D. ratio was 1.08. lung heart ratio noted at 0.43 but visually noted to be somewhat increased. RV free wall uptake was noted to be increased. No significant extracardiac and abnormal radiotracer activities were noted. IMPRESSION: 1. There is no definitive scintigraphic evidence of LexiScan induced myocardial ischemia. 2. There is no definitive scintigraphic evidence of myocardial infarction/scar. 3. EKG gated imaging shows left ventricular ejection fraction of approximately 55% without any definite regional wall motion abnormalities. RECOMMENDATIONS: Aggressive risk factor modification, medical therapy. Clinical correlation with echocardiogram of nuclear derived ejection fraction. Patient should be informed that occasionally single vessel disease and/or balanced ischemia could be missed Further assessment and reevaluation may be needed in future if symptoms persists or worsens. Appointment to discuss results. Leyla Ragland M.D., YARITZA Board certified in cardiovascular diseases, Nuclear cardiology, Echocardiography, Cardiac CT and Cardiac MRI. Ph. [phone] [facility]
[2017-03-14] MEDS ORDERED: SENNOSIDES/DOCUSATE 8.6-50 MG 1 EACH TABLET PO PRN (17:58)
--- NOTE | 2017-03-14 18:04 | PDOC PROGRESS REPORT ---
Subjective Progress Note for:: 03/14/17 Subjective:: Patient reports tongue swelling is improved. Patient reports that this does happen to her on occasion. Patient denies chest pain, shortness of breath, nausea, vomiting, fever, chills , diarrhea, new onset weakness, rash. Patient has improved constipation. Physical Exam Vital Signs: Temp Pulse Resp BP Pulse Ox 98.0 F 86 18 122/65 99 03/13/17 23:35 03/14/17 02:00 03/13/17 23:35 03/13/17 23:35 03/13/17 23:35 Intake & Output 03/13/17 03/14/17 03/15/17 06:59 06:59 06:59 Intake Total 1713 787 Output Total 1750 1700 Balance -37 -913 Weight 114.4 kg 114 kg Exam: General:, Alert, awake, oriented x3, no acute respiratory distress,obese HEENT: AT/NC, PERRL,EOMI, movement of tongue swelling, improving angular chelosis, oropharynx is dry, pink, no scleral icterus, no conjunctival injection Neck: No JVD, trachea midline Chest: Diminished bilateral bases prolonged expiratory phase, otherwise clear to auscultation CV: IRR, normal S1 and S2, no rub or gallop; +2/6 sm apex Abdomen: Soft, nontender to palpation, not distended, hypoactive bowel sounds; no rebound, rigidity, or guarding Extremities: No cyanosis, clubbing; trace edema Neuro: Cranial nerves II through XII are grossly intact without focal deficits; awake alert and oriented x3 Psych: Normal mood and affect Skin: No rashes or lesions Results Laboratory Results: 03/12/17 05:43 03/13/17 04:46 03/10/17 03/10/17 03/11/17 20:28 20:28 02:33 Creatine Kinase 38 36 CK-MB (CK-2) 0.63 Troponin I < 0.012 NT-Pro-B Natriuret Pep 03/11/17 03/11/17 03/11/17 02:33 08:50 08:50 Creatine Kinase 33 CK-MB (CK-2) 0.75 0.80 Troponin I < 0.012 NT-Pro-B Natriuret Pep 03/12/17 05:43 Creatine Kinase CK-MB (CK-2) Troponin I NT-Pro-B Natriuret Pep 923 H Impressions: Chest X-Ray 03/12/17 06:00 IMPRESSION: Stable chest with cardiomegaly. Minimal linear atelectasis in the left base. Assessment & Plan - Diagnosis (1) JOEY inhibitor-aggravated angioedema Qualifiers: Encounter type: subsequent encounter Qualified Code(s): T78.3XXD - Angioneurotic edema, subsequent encounter; T46.4X5D - Adverse effect of nkdlfofmcub-inpkbnxnne-lnhwwe inhibitors, subsequent encounter Is this a current diagnosis for this admission?: YesPlan: Patient has been stopped on lisinopril and started on Cozaar and tolerated this well. Patient has been advised not to take JOEY inhibitors and this has been reinforced through the teach back method. Family present at bedside is also educated on this condition. (2) Constipation Qualifiers: Constipation type: unspecified constipation type Qualified Code(s): K59.00 - Constipation, unspecified Is this a current diagnosis for this admission?: YesPlan: resolved (3) Acute diastolic CHF (congestive heart failure) Is this a current diagnosis for this admission?: YesPlan: Patient is currently still mildly volume overloaded. Reports she does not feel exactly back to baseline. Echocardiogram performed 05/15/2016 showed normal EF, LVH, mild to moderate mitral regurgitation, unable to assess diastolic function secondary to atrial fibrillation. Patient on metoprolol, Lasix, and Cozaar. (4) Acute on chronic respiratory failure with hypoxemia Is this a current diagnosis for this admission?: YesPlan: Improved. Patient reports that she normally uses oxygen at home. (5) Chest pain Qualifiers: Chest pain type: unspecified Qualified Code(s): R07.9 - Chest pain, unspecified Is this a current diagnosis for this admission?: YesPlan: Had a negative stress test. Patient is on Cozaar, metoprolol, and Eliquis. (6) Chronic atrial fibrillation Is this a current diagnosis for this admission?: YesPlan: Rate improved. On metoprolol succinate 25 mg p.o. twice daily and Cardizem. Consider increasing metoprolol. on Eliquis. 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 Patient's blood sugars have been under 120. Stop patient's metformin. Generally not recommended for patients over 80. Will defer this to her primary care physician as an outpatient. Will consider resuming this if patient's sugars are poorly controlled. (8) COPD (chronic obstructive pulmonary disease) Qualifiers: COPD type: unspecified COPD Qualified Code(s): J44.9 - Chronic obstructive pulmonary disease, unspecified Is this a current diagnosis for this admission?: YesPlan: Part stopping smoking 19 years ago. On nebulized treatments as needed. Continue oxygen. (9) Angular cheilosis Is this a current diagnosis for this admission?: YesPlan: Give patient fluconazole for this. A multivitamin. This is feeling much improved (10) Anemia Qualifiers: Anemia type: unspecified type Qualified Code(s): D64.9 - Anemia, unspecified Is this a current diagnosis for this admission?: Yes (11) Morbid obesity with alveolar hypoventilation Is this a current diagnosis for this admission?: Yes - Time Time Spent with patient: 25-34 minutes Anticipated discharge: Home, Home with Homehealth Within: within 24 hours
[2017-03-14] MEDS: ATORVASTATIN CALCIUM 40 MG TABLET PO SCH (21:18)
[2017-03-15 04:34] LABS: ABSOLUTE BASOPHILS # (AUTO) 0.1 10^3/uL (0.0-0.2); ABSOLUTE EOSINOPHILS # (AUTO) 0.1 10^3/uL (0.0-0.6); ABSOLUTE LYMPHOCYTES (AUTO) 1.9 10^3/uL (0.5-4.7); ABSOLUTE MONOCYTES (AUTO) 0.4 10^3/uL (0.1-1.4); ABSOLUTE NEUT (AUTO) 5.3 10^3/uL (1.7-8.2); BASOPHILS % (AUTO) 0.7 % (0-2); EOSINOPHILS % (AUTO) 1.3 % (0-6); HEMATOCRIT 33.5 % (36.0-47.0); HEMOGLOBIN 10.5 g/dL (12.0-15.5); MEAN CORPUSCULAR HEMOGLOBIN 27.7 pg (27.0-33.4); MEAN CORPUSCULAR HGB CONC 31.4 g/dL (32.0-36.0); MEAN CORPUSCULAR VOLUME 88 fl (80-97); MONOCYTES % (AUTO) 5.7 % (3-13); RED BLOOD COUNT 3.81 10^6/uL (3.72-5.28); RED CELL DISTRIBUTION WIDTH 17.3 % (11.5-14.0); SEGMENTED NEUTROPHILS % (AUTO) 68.3 % (42-78); WHITE BLOOD COUNT 7.8 10^3/uL (4.0-10.5)
[2017-03-15 04:44] LABS: ANION GAP 11 (5-19); BLOOD UREA NITROGEN 36 mg/dL (7-20); CALCIUM 9.1 mg/dL (8.4-10.2); CARBON DIOXIDE 32 mmol/L (22-30); CHLORIDE 101 mmol/L (98-107); CREATININE RESULT 1.06 mg/dL (0.52-1.25); GLUCOSE 144 mg/dL (75-110); MAGNESIUM 2.3 mg/dL (1.6-2.3); SODIUM 144.1 mmol/L (137-145)
[2017-03-15] MEDS: LANSOPRAZOLE 30 MG TAB.RAP.DR PO SCH (07:35)
[2017-03-15] MEDS ORDERED: NORMAL SALINE 1000 ML 250 ML IV PRN (08:21)
[2017-03-15] MEDS ORDERED: NORMAL SALINE 250 ML IV PRN (08:33)
[2017-03-15] MEDS: DILTIAZEM HCL 120 MG CAP.SR.24H PO SCH (09:21)
[2017-03-15] MEDS: METOPROLOL SUCCINATE 25 MG TAB.SR.24H PO SCH (09:21)
[2017-03-15] MEDS: MULTIVITAMINS W-IRON TABLET, CHEWABLE PO SCH (09:21)
[2017-03-15] MEDS: PAROXETINE HCL 20 MG TABLET PO SCH (09:21)
[2017-03-15] MEDS: DOCUSATE SODIUM 100 MG CAPSULE PO SCH (09:22)
[2017-03-15] MEDS: APIXABAN 5 MG TABLET PO SCH (09:22)
[2017-03-15] MEDS: FLUCONAZOLE 100 MG TABLET PO SCH (09:22)
[2017-03-15] MEDS: FUROSEMIDE 40 MG TABLET PO SCH (09:23)
[2017-03-15] MEDS: LOSARTAN POTASSIUM 25 MG TABLET PO SCH (09:23)
[2017-03-15 12:05] VITALS: BP 125/79
--- NOTE | 2017-03-15 20:02 | PDOC DISCHARGE SUMMARY ---
General - Admit/Disc Date/PCP Admission Date/Primary Care Provider: 03/10/17 16:41 ARMAAN NORIEGA MD Discharge Date: 03/15/17 - Discharge Diagnosis (1) Acute diastolic CHF (congestive heart failure) Is this a current diagnosis for this admission?: Yes (2) JOEY inhibitor-aggravated angioedema Is this a current diagnosis for this admission?: Yes (3) Constipation Is this a current diagnosis for this admission?: Yes (4) Acute on chronic respiratory failure with hypoxemia Is this a current diagnosis for this admission?: Yes (5) Chest pain Is this a current diagnosis for this admission?: Yes (6) Chronic atrial fibrillation Is this a current diagnosis for this admission?: Yes (7) Diabetes Is this a current diagnosis for this admission?: Yes (8) COPD (chronic obstructive pulmonary disease) Is this a current diagnosis for this admission?: Yes (9) Angular cheilosis Is this a current diagnosis for this admission?: Yes (10) Anemia Is this a current diagnosis for this admission?: Yes (11) Morbid obesity with alveolar hypoventilation Is this a current diagnosis for this admission?: Yes - Additional Information Resuscitation Status: Full Code Discharge Diet: Cardiac, Diabetic Discharge Activity: Weigh Daily Home Medications: Apixaban [Eliquis] 5 mg PO Q12 03/11/17 Atorvastatin Calcium [Lipitor 40 mg Tablet] 40 mg PO DAILY 03/11/17 Diltiazem HCl [Diltiazem 24Hr ER] 120 mg PO Q12 03/11/17 Omeprazole 40 mg PO DAILY 03/11/17 Paroxetine HCl [Paxil] 10 mg PO DAILY 03/11/17 Ranitidine HCl [Zantac] 300 mg PO QHS 03/11/17 Furosemide [Lasix] 40 mg PO BID #60 tablet 03/15/17 Losartan Potassium [Cozaar 25 mg Tablet] 25 mg PO Q12 #60 tablet 03/15/17 Metoprolol Succinate [Toprol Xl 25 mg Tab.sr] 25 mg PO Q12 #60 tab.sr.24h Sennosides/Docusate 8.6-50 mg [Senna Plus Tablet] 2 each PO HSP PRN #60 tablet 03/15/17 History of Present Illness History of Present Illness: Please see H&P for full HPI Hospital Course Hospital Course: RACHEL LAN is a 81 year old female with past medical history of CHF, atrial fibrillation, COPD, diabetes, hypertension presents with chronic lower extremity edema and shortness of breath. Over the past several days she has had worsening shortness of breath and chest pressure. She has chronic oxygen dependent at baseline on 2 L nasal cannula, however more recently she has had increased to 4 L nasal cannula. Diuresed and cardiac enzymes were negative. Patient underwent stress test which was negative. Patient admitted to dietary indiscretion. On 03/13/2017 patient was found to have mild tongue swelling and this was treated with Solu-Medrol, Pepcid, and Benadryl and her lisinopril was stopped. Patient was educated on JOEY inhibitor angioedema and patient was able to successfully with lisinopril as an allergy using the teach back method. Was educated on diet and the need for daily weight. Patient was transitioned to Cozaar with success. Also found to have angular chelosis which was successfully treated with fluconazole. Patient was discharged in stable condition with home health to follow. Physical Exam Vital Signs: Temp Pulse Resp BP Pulse Ox 97.4 F 75 20 100/60 97 03/15/17 03:25 03/15/17 03:25 03/15/17 03:25 03/15/17 03:25 03/15/17 03:25 Intake & Output 03/14/17 03/15/17 03/16/17 06:59 06:59 06:59 Intake Total 787 560 Output Total 1700 850 Balance -913 -290 Weight 114 kg 116.5 kg Exam: General:, Alert, awake, oriented x3, no acute respiratory distress,obese HEENT: AT/NC, PERRL,EOMI, oropharynx is dry, pink, no scleral icterus, no conjunctival injection Neck: No JVD, trachea midline Chest: clear to auscultation CV: IRR, normal S1 and S2, no rub or gallop; +2/6 sm apex Abdomen: Soft, nontender to palpation, not distended, hypoactive bowel sounds; no rebound, rigidity, or guarding Extremities: No cyanosis, clubbing, no edema Neuro: Cranial nerves II through XII are grossly intact without focal deficits; awake alert and oriented x3 Psych: Normal mood and affect Skin: No rashes or lesions Results Laboratory Results: 03/15/17 04:03 03/15/17 04:03 03/15/17 03/15/17 04:03 04:03 WBC 7.8 RBC 3.81 Hgb 10.5 L Hct 33.5 L MCV 88 MCH 27.7 MCHC 31.4 L RDW 17.3 H Plt Count 178 Seg Neutrophils % 68.3 Lymphocytes % 24.0 Monocytes % 5.7 Eosinophils % 1.3 Basophils % 0.7 Absolute Neutrophils 5.3 Absolute Lymphocytes 1.9 Absolute Monocytes 0.4 Absolute Eosinophils 0.1 Absolute Basophils 0.1 Sodium 144.1 Potassium 4.0 Chloride 101 Carbon Dioxide 32 H Anion Gap 11 BUN 36 H Creatinine 1.06 Est GFR ( Amer) > 60 Est GFR (Non-Af Amer) 50 L Glucose 144 H Calcium 9.1 Magnesium 2.3 03/10/17 03/10/17 03/11/17 20:28 20:28 02:33 Creatine Kinase 38 36 CK-MB (CK-2) 0.63 Troponin I < 0.012 NT-Pro-B Natriuret Pep 03/11/17 03/11/17 03/11/17 02:33 08:50 08:50 Creatine Kinase 33 CK-MB (CK-2) 0.75 0.80 Troponin I < 0.012 NT-Pro-B Natriuret Pep 03/12/17 05:43 Creatine Kinase CK-MB (CK-2) Troponin I NT-Pro-B Natriuret Pep 923 H Impressions: Chest X-Ray 03/12/17 06:00 IMPRESSION: Stable chest with cardiomegaly. Minimal linear atelectasis in the left base. Qualifiers PATEINT BEING DISCHARGED WITH ANY OF THE FOLLOWING DIAGNOSIS?: Heart Failure HF Pt being discharged on ACEI for LVEF less than 40%?: No Reason(s) for not prescribing ACEI:: Adverse reaction to drug HF Pt being discharged on ARBS for LVEF less than 40%?: Yes HF Pt with Afib discharged with Warfarin?: No Reason(s) for not prescribing Warfarin:: Not indicated - eliquis HF Pt discharged on evidence-based Beta Camille:: Yes Plan Time Spent: Less than 30 Minutes
== END 2017-03-15 13:33 | disposition home health service (06) | DRG 291 ==
LOC: ER 14:10 → EH 16:23 → UNDOADMIN 16:23 → EH 16:41 → 3W 18:27
PROVIDERS: ADMIT Internal Medicine; ATTEND Internal Medicine
DX: I50.33 Acute on chronic diastolic (congestive) heart failure (principal); J96.21 Acute and chronic respiratory failure with hypoxia; E66.2 Morbid (severe) obesity with alveolar hypoventilation; Z68.41 Body mass index [BMI] 40.0-44.9, adult; I48.2 Chronic atrial fibrillation; J44.9 Chronic obstructive pulmonary disease, unspecified; K59.00 Constipation, unspecified; E11.9 Type 2 diabetes mellitus without complications; K13.0 Diseases of lips; D64.9 Anemia, unspecified; E78.5 Hyperlipidemia, unspecified; K21.9 Gastro-esophageal reflux disease without esophagitis; M19.049 Primary osteoarthritis, unspecified hand; M17.0 Bilateral primary osteoarthritis of knee; Z79.899 Other long term (current) drug therapy; Z79.01 Long term (current) use of anticoagulants; Z99.81 Dependence on supplemental oxygen; Z90.710 Acquired absence of both cervix and uterus
CPT/HCPCS: 36415; 71010; 78452; 80048; 80053; 82550; 82553; 82962; 83036; 83735; 83880; 84439; 84443; 84481; 84484; 85025; 93005; 93010; 93017; 96374; 99285; A9500; G8978-GP; G8979-GP; G8980-GP; J0280; J1200; J1940; J2785; J2930; J3490; J7050; Q9969; S0028

== ENCOUNTER 2017-05-08 20:58 | Emergency (ER) | payer MEDICARE, MEDICAID ==
[2017-05-08] MEDS ORDERED: NORMAL SALINE 500 ML IV ONE (21:23)
[2017-05-08 21:24] LABS: ABSOLUTE EOSINOPHILS # (AUTO) 0.1 10^3/uL (0.0-0.6); ABSOLUTE MONOCYTES (AUTO) 0.4 10^3/uL (0.1-1.4); ABSOLUTE NEUT (AUTO) 5.7 10^3/uL (1.7-8.2); BASOPHILS % (AUTO) 0.5 % (0-2); EOSINOPHILS % (AUTO) 1.5 % (0-6); HEMATOCRIT 34.5 % (36.0-47.0); HEMOGLOBIN 10.8 g/dL (12.0-15.5); HGB HCT DIFFERENCE -2.1; LYMPHOCYTES % (AUTO) 13.8 % (13-45); MEAN CORPUSCULAR HGB CONC 31.3 g/dL (32.0-36.0); MEAN CORPUSCULAR VOLUME 86 fl (80-97); MONOCYTES % (AUTO) 5.4 % (3-13); RED BLOOD COUNT 4.01 10^6/uL (3.72-5.28); RED CELL DISTRIBUTION WIDTH 18.4 % (11.5-14.0); SEGMENTED NEUTROPHILS % (AUTO) 78.8 % (42-78); WHITE BLOOD COUNT 7.3 10^3/uL (4.0-10.5)
[2017-05-08 21:34] LABS: APPEARANCE,URINE SLIGHTLY-CLOUDY; BILIRUBIN,URINE NEGATIVE (NEGATIVE); GLUCOSE, URINE NEGATIVE (NEGATIVE); KETONES,URINE NEGATIVE (NEGATIVE); LEUKOCYTE ESTERASE,URINE NEGATIVE (NEGATIVE); NITRITE,URINE NEGATIVE (NEGATIVE); PROTEIN,URINE NEGATIVE (NEGATIVE); URINE SPECIFIC GRAVITY 1.015
[2017-05-08 21:40] LABS: ALANINE AMINOTRANSFERASE 36 U/L (9-52); ALBUMIN 3.9 g/dL (3.5-5.0); ALKALINE PHOSPHATASE 86 U/L (38-126); ANION GAP 12 (5-19); ASPARTATE AMINO TRANSFERASE 27 U/L (14-36); BILIRUBIN,DIRECT 0.5 mg/dL (0.0-0.4); BILIRUBIN,TOTAL 0.8 mg/dL (0.2-1.3); BLOOD UREA NITROGEN 35 mg/dL (7-20); CALCIUM 8.6 mg/dL (8.4-10.2); CARBON DIOXIDE 30 mmol/L (22-30); CHLORIDE 100 mmol/L (98-107); CREATINE KINASE 43 U/L (30-135); CREATININE RESULT 1.15 mg/dL (0.52-1.25); GLUCOSE 212 mg/dL (75-110); POTASSIUM 4.5 mmol/L (3.6-5.0); SODIUM 141.5 mmol/L (137-145); TOTAL PROTEIN 7.2 g/dL (6.3-8.2)
--- NOTE | 2017-05-08 21:45 | ER Document Report ---
ED General - General Chief Complaint: Weakness Stated Complaint: WEAKNESS Time Seen by Provider: 05/08/17 21:22 Notes: Chronically ill 81-year-old lady with COPD and CHF on home oxygen chronically debilitated presents with "shaking" and weakness that she says is present " since I got out of here last time." She then states that the shaking was noticed tonight when she got up to go to the bathroom. She said she shaking like a tree in the when minutes of bilateral upper and lower extremities. No loss of consciousness no loss of bowel or bladder dysfunction. Slightly increased shortness of breath at baseline. She lives at home and is cared for by her daughter 24 7. She needs help with all of her activities of daily living TRAVEL OUTSIDE OF THE [place] IN LAST 30 DAYS: No - Related Data Allergies/Adverse Reactions: JOYE Inhibitors Allergy (Intermediate, Verified 05/08/17 21:11) Angioneurotic Edema Past Medical History - Social History Smoking Status: Former Smoker Family History: Reviewed & Not Pertinent - Past Medical History Cardiac Medical History: Reports: Hx Atrial Fibrillation, Hx Congestive Heart Failure, Hx Hypercholesterolemia, Hx Hypertension Pulmonary Medical History: Reports: Hx Asthma, Hx COPD, Hx Pneumonia Endocrine Medical History: Reports: Hx Diabetes Mellitus Type 2 GI Medical History: Reports: Hx Gastroesophageal Reflux Disease Musculoskeltal Medical History: Reports Hx Arthritis - HANDS AND KNEES Psychiatric Medical History: Reports: Hx Depression Past Surgical History: Reports: Hx Cardiac Catheterization, Hx Hysterectomy, Hx Orthopedic Surgery - B/L knee replacement, Hx Vascular Surgery - Immunizations Hx Diphtheria, Pertussis, Tetanus Vaccination: No Hx Pneumococcal Vaccination: 10/08/14 Review of Systems - Review of Systems Notes: REVIEW OF SYSTEMS GEN: Generalized weakness ENT: Denies sore throat, nasal discharge, ear pain EYES: Denies blurry vision, eye pain, discharge CV: Denies chest pain, palpitations, edema RESP: Denies cough, shortness of breath, wheezing GI: Denies abdominal pain, nausea, vomiting, diarrhea MSK: Denies joint pain/swelling, edema, SKIN: Denies rash, skin lesions LYMPH: Denies swollen glands/lymph nodes NEURO: Denies headache, focal weakness or numbness, dizziness taking. PSYCH: Denies depression, suicidal or homicidal ideation PHYSICAL EXAMINATION General: No acute distress, well-nourished appears obese and chronically ill. Head: Atraumatic, normocephalic ENT: Mouth normal, oropharynx moist, no exudates or tonsillar enlargement Eyes: Conjunctiva normal, pupils equal, lids normal Neck: No JVD, supple, no guarding CVS: Tachycardia, irregularly irregular Resp: No resp distress, equal and normal breath sounds bilaterally GI: Nondistended, soft, no tenderness to palpation, no rebound or guarding Ext: No deformities, during leg o edema, normal range of motion in upper and lower ext Back: No CVA or midline TTP Skin: No rash, warm Lymphatic: No lymphadeopathy noted Neuro: Awake, alert. Face symmetric. GCS 15.. Symmetric target developer and symmetric strength in all 4 extremities. Physical Exam - Vital signs Vitals: Resp Pulse Ox 20 96 05/08/17 21:05 05/08/17 21:05 Course - Re-evaluation Re-evalutation: 05/08/17 21:45 81-year-old lady with CHF COPD and multiple chronic illnesses including deconditioning presents with shakiness and weakness. Her physical exam is nonfocal neurologically and aside from some mild tachycardia in the setting of known atrial fibrillation her vitals are normal. Her differential is broad but includes very few emergency medical conditions in my opinion. Will check her electrolytes check her for anemia and give her some fluid because she looks dehydrated. If her workup is negative and she feels better, I think she is safe to go home. 05/08/17 22:43 Heart rate still hovering around 100. The patient has totally normal lab workup. Given her lack of crackles on exam her stability in terms of her saturation on her baseline home dose of oxygen and her lack of focal neurologic findings I think she is stable for discharge home. I have discussed with the patient there likely diagnosis, aftercare plan, follow -up plans and my usual and customary return precautions. They verbalized understanding of this. - Vital Signs Vital signs: Temp Pulse Resp BP Pulse Ox 101 H 18 116/88 H 96 05/08/17 21:12 05/08/17 21:12 05/08/17 21:12 05/08/17 21:12 - Laboratory Result Diagrams: 05/08/17 21:07 05/08/17 21:07 Laboratory results interpreted by me: 05/08/17 05/08/17 05/08/17 21:07 21:07 21:15 Hgb 10.8 L Hct 34.5 L MCHC 31.3 L RDW 18.4 H Seg Neutrophils % 78.8 H BUN 35 H Est GFR ( Amer) 55 L Est GFR (Non-Af Amer) 45 L Glucose 212 H Direct Bilirubin 0.5 H Urine Urobilinogen 2.0 H - EKG Interpretation by Me Rate: Tachycardia - Oh ST or T-wave changes compared to prior Rhythm: A.Fib Discharge - Discharge Clinical Impression: Weakness generalized Condition: Good Disposition: HOME, SELF-CARE Instructions: Weakness ([facility]) Additional Instructions: Did not find an emergency because of your weakness and shaking. He did not have any signs of seizures, and all of your blood tests were normal. As we discussed I think it is safe to discharge home as long as you follow-up with your regular doctor within 1 week.
[2017-05-08 21:52] LABS: CREATINE KINASE MB 0.78 ng/mL (<4.55)
[2017-05-08 21:53] LABS: TROPONIN I < 0.012 ng/mL
[2017-05-08 23:10] VITALS: BP 127/73
--- NOTE | 2017-05-09 07:51 | EKG REPORT ---
SEVERITY:- ABNORMAL ECG - ATRIAL FIBRILLATION, V-RATE 82-150 BORDERLINE REPOL ABNORMALITY, DIFFUSE LEADS : Confirmed by: Alexander Perez MD 09-May-2017 07:50:18
== END 2017-05-08 23:15 | disposition home or self-care (01) ==
LOC: ER 20:58
DX: R53.1 Weakness (principal); J44.9 Chronic obstructive pulmonary disease, unspecified; Z99.81 Dependence on supplemental oxygen; I11.0 Hypertensive heart disease with heart failure; I50.9 Heart failure, unspecified; I48.91 Unspecified atrial fibrillation; R06.02 Shortness of breath; E11.9 Type 2 diabetes mellitus without complications; R00.0 Tachycardia, unspecified; Z88.8 Allergy status to other drugs, medicaments and biological substances
CPT/HCPCS: 36415; 51701; 80053; 81001; 82550; 82553; 84484; 85025; 93005; 93010; 99285

== ENCOUNTER 2017-05-16 11:53 | Emergency (ER) | payer MEDICARE, MEDICAID ==
[2017-05-16 12:19] LABS: ABSOLUTE EOSINOPHILS # (AUTO) 0.1 10^3/uL (0.0-0.6); ABSOLUTE LYMPHOCYTES (AUTO) 0.9 10^3/uL (0.5-4.7); ABSOLUTE MONOCYTES (AUTO) 0.4 10^3/uL (0.1-1.4); ABSOLUTE NEUT (AUTO) 4.6 10^3/uL (1.7-8.2); BASOPHILS % (AUTO) 0.7 % (0-2); EOSINOPHILS % (AUTO) 1.7 % (0-6); HEMATOCRIT 35.2 % (36.0-47.0); HEMOGLOBIN 10.8 g/dL (12.0-15.5); HGB HCT DIFFERENCE -2.8; LYMPHOCYTES % (AUTO) 15.3 % (13-45); MEAN CORPUSCULAR HEMOGLOBIN 26.4 pg (27.0-33.4); MEAN CORPUSCULAR HGB CONC 30.6 g/dL (32.0-36.0); MEAN CORPUSCULAR VOLUME 86 fl (80-97); MONOCYTES % (AUTO) 6.4 % (3-13); RED BLOOD COUNT 4.09 10^6/uL (3.72-5.28); RED CELL DISTRIBUTION WIDTH 18.6 % (11.5-14.0); SEGMENTED NEUTROPHILS % (AUTO) 75.9 % (42-78); WHITE BLOOD COUNT 6.1 10^3/uL (4.0-10.5)
[2017-05-16 12:36] LABS: ALANINE AMINOTRANSFERASE 36 U/L (9-52); ALBUMIN 3.8 g/dL (3.5-5.0); ALKALINE PHOSPHATASE 77 U/L (38-126); ANION GAP 8 (5-19); ASPARTATE AMINO TRANSFERASE 25 U/L (14-36); BILIRUBIN,DIRECT 0.5 mg/dL (0.0-0.4); BILIRUBIN,TOTAL 0.7 mg/dL (0.2-1.3); BLOOD UREA NITROGEN 37 mg/dL (7-20); CALCIUM 8.7 mg/dL (8.4-10.2); CARBON DIOXIDE 35 mmol/L (22-30); CHLORIDE 99 mmol/L (98-107); CREATINE KINASE 38 U/L (30-135); CREATININE RESULT 1.14 mg/dL (0.52-1.25); GLUCOSE 230 mg/dL (75-110); POTASSIUM 4.6 mmol/L (3.6-5.0); TOTAL PROTEIN 7.3 g/dL (6.3-8.2)
--- NOTE | 2017-05-16 12:37 | RADIOLOGY REPORT (SQ) ---
EXAM DESCRIPTION: CHEST SINGLE VIEW COMPLETED DATE/TIME: 05/16/2017 12:24 pm REASON FOR STUDY: generalized weakness COMPARISON: 03/12/2017 EXAM PARAMETERS: NUMBER OF VIEWS: One view. TECHNIQUE: Single frontal radiographic view of the chest acquired. RADIATION DOSE: NA LIMITATIONS: None. FINDINGS: LUNGS AND PLEURA: No infiltrates or effusions. Mild pulmonary vascular congestion. MEDIASTINUM AND HILAR STRUCTURES: No masses. Contour normal. HEART AND VASCULAR STRUCTURES: Borderline cardiomegaly mild pulmonary vascular congestion but no zaida k CHF. BONES: No acute findings. HARDWARE: None in the chest. OTHER: No other significant finding. IMPRESSION: Borderline cardiomegaly with pulmonary vascular congestion but no pricilla CHF TECHNICAL DOCUMENTATION: JOB ID: [id number]
[2017-05-16 12:48] LABS: CREATINE KINASE MB 1.39 ng/mL (<4.55)
[2017-05-16 12:49] LABS: TROPONIN I < 0.012 ng/mL
[2017-05-16 13:53] LABS: URINE BARBITURATES SCREEN NEGATIVE; URINE METHADONE SCREEN NEGATIVE; URINE OPIATES LOW NEGATIVE; URINE PHENCYCLIDINE SCREEN NEGATIVE
[2017-05-16 13:56] LABS: APPEARANCE,URINE CLOUDY; BILIRUBIN,URINE NEGATIVE (NEGATIVE); GLUCOSE, URINE NEGATIVE (NEGATIVE); KETONES,URINE NEGATIVE (NEGATIVE); LEUKOCYTE ESTERASE,URINE MODERATE (NEGATIVE); NITRITE,URINE POSITIVE (NEGATIVE); PROTEIN,URINE NEGATIVE (NEGATIVE); URINE SPECIFIC GRAVITY 1.017; UROBILINOGEN,URINE NEGATIVE mg/dL (<2.0)
[2017-05-16] MEDS ORDERED: CEFTRIAXONE 1 GM/D5W RTU 50 ML IV ONE (14:22)
[2017-05-16] MEDS ORDERED: NORMAL SALINE 1000 ML 500 ML IV ONE (14:28)
--- NOTE | 2017-05-16 14:30 | ER Document Report ---
ED Dizziness/Weakness - General Chief Complaint: General Weakness Stated Complaint: WEAKNESS Time Seen by Provider: 05/16/17 12:02 Mode of Arrival: Ambulatory Information source: Patient Notes: Patient is an 81-year-old female who presents to the ER today for 1 week of shaking, falling. Patient states that she has been very shaky at times and will "lose my balance." She states that this is not normal for her. She does have a history of CHF and A. fib but does not report any more shortness of breath than normal and denies chest pain, fever, chills, nausea, vomiting, diarrhea, abdominal pain, back pain, dysuria, hematuria. She has no history of seizures. She does not lose consciousness when these episodes happen. She admits to some generalized weakness that has been going on for "months." TRAVEL OUTSIDE OF THE [place] IN LAST 30 DAYS: No - Related Data Allergies/Adverse Reactions: JOEY Inhibitors Allergy (Intermediate, Verified 05/08/17 21:11) Angioneurotic Edema Home Medications: Current Home Medications Hydrocodone Bit/Acetaminophen [Hydrocodon-Acetaminophen 5-325] 1 each PO Q6H PRN 05/16/17 [History] Metformin HCl 500 mg PO DAILY 05/16/17 [History] Past Medical History - General Information source: Patient - Social History Smoking Status: Former Smoker Chew tobacco use (# tins/day): No Frequency of alcohol use: None Drug Abuse: None Family History: Reviewed & Not Pertinent - Past Medical History Cardiac Medical History: Reports: Hx Atrial Fibrillation, Hx Congestive Heart Failure, Hx Hypercholesterolemia, Hx Hypertension Pulmonary Medical History: Reports: Hx Asthma, Hx COPD, Hx Pneumonia Endocrine Medical History: Reports: Hx Diabetes Mellitus Type 2 GI Medical History: Reports: Hx Gastroesophageal Reflux Disease Musculoskeltal Medical History: Reports Hx Arthritis - HANDS AND KNEES Psychiatric Medical History: Reports: Hx Depression Past Surgical History: Reports: Hx Cardiac Catheterization, Hx Hysterectomy, Hx Orthopedic Surgery - B/L knee replacement, Hx Vascular Surgery - Immunizations Hx Diphtheria, Pertussis, Tetanus Vaccination: No Hx Pneumococcal Vaccination: 10/08/14 Review of Systems - Review of Systems Constitutional: See HPI EENT: No symptoms reported Cardiovascular: No symptoms reported Respiratory: No symptoms reported Gastrointestinal: No symptoms reported Genitourinary: No symptoms reported Female Genitourinary: No symptoms reported Musculoskeletal: No symptoms reported Skin: No symptoms reported Hematologic/Lymphatic: No symptoms reported Neurological/Psychological: See HPI Physical Exam - Vital signs Vitals: Resp BP Pulse Ox 23 H 121/89 H 99 05/16/17 11:59 05/16/17 11:59 05/16/17 11:59 - Notes Notes: PHYSICAL EXAMINATION: GENERAL: Elderly, chronically ill-appearing, but, in no acute distress. HEAD: Atraumatic, normocephalic. EYES: Pupils equal round and reactive to light, extraocular movements intact, sclera anicteric, conjunctiva are normal. ENT: ear canals without erythema or foreign body, TMs pearly jarvis with good bony landmarks, nares patent, oropharynx clear without exudates. Moist mucous membranes. NECK: Normal range of motion, supple without lymphadenopathy LUNGS: on nasal cannula, CTAB and equal. No wheezes rales or rhonchi. HEART: Regular rate and rhythm without murmurs ABDOMEN: Soft, no tenderness. No guarding, no rebound BACK: no vertebral tenderness, normal ROM GI/: no CVA tenderness EXTREMITIES: Normal range of motion, no pitting edema. No cyanosis. NEUROLOGICAL: Cranial nerves grossly intact. Normal sensory/motor exams. PSYCH: Normal mood, normal affect. SKIN: Warm, Dry, normal turgor, no rashes or lesions noted Course - Re-evaluation Re-evalutation: 05/16/17 16:57 White count is normal today. Patient refused CAT scan of the head. Chest x- ray reports some mild cardiomegaly and vascular congestion, patient does take Lasix every day. She is on her normal 3 L of nasal cannula here that she takes at home. Urinalysis reports UTI with positive nitrites, blood, moderate leukocytes and 173 white blood cells. Will treat patient for UTI at this time. She was given IV Rocephin and a small bolus of fluids here in the emergency department. Her vital signs have remained stable here, she was in A. fib which is normal for her and sent her pulse to get up into the 110s, but not higher. 05/16/17 16:58 05/16/17 17:18 two readings of hypotension were recorded at 99/69 and 84/63, but I watched pt very carefully, manual blood pressures were taken and I recycled blood pressures myself 1-2 minutes after these blood pressures and she had normal pressures. I believe this was due to poor placement of cuff. cuff was adjusted and she didn't have another low reading the rest of her almost 5 hours here. - Vital Signs Vital signs: Temp Pulse Resp BP Pulse Ox 97.6 F 105 H 19 106/88 H 99 05/16/17 14:33 05/16/17 12:13 05/16/17 17:01 05/16/17 17:01 05/16/17 17:01 - Laboratory Result Diagrams: 05/16/17 12:03 05/16/17 12:03 Laboratory results interpreted by me: 05/16/17 05/16/17 05/16/17 12:03 12:03 13:13 Hgb 10.8 L Hct 35.2 L MCH 26.4 L MCHC 30.6 L RDW 18.6 H Carbon Dioxide 35 H BUN 37 H Est GFR ( Amer) 55 L Est GFR (Non-Af Amer) 46 L Glucose 230 H Direct Bilirubin 0.5 H Urine Blood MODERATE H Urine Nitrite POSITIVE H Ur Leukocyte Esterase MODERATE H Discharge - Discharge Clinical Impression: General weakness UTI (urinary tract infection) Qualifiers: Urinary tract infection type: site unspecified Hematuria presence: with hematuria Qualified Code(s): N39.0 - Urinary tract infection, site not specified Condition: Stable Disposition: HOME, SELF-CARE Instructions: Urinary Tract Infection ([facility]) Additional Instructions: Return immediately for any new or worsening symptoms. Follow up with primary care provider, call tomorrow to make followup appointment. Prescriptions: Cephalexin Monohydrate [Keflex 500 mg Capsule] 500 mg PO TID 7 Days
[2017-05-16 17:08] VITALS: BP 106/88
--- NOTE | 2017-05-17 13:27 | EKG REPORT ---
SEVERITY:- ABNORMAL ECG - ATRIAL FIBRILLATION : Confirmed by: Leyla Ragland 17-May-2017 13:27:12
== END 2017-05-16 17:28 | disposition home or self-care (01) ==
LOC: ER 11:53
DX: N39.0 Urinary tract infection, site not specified (principal); R31.9 Hematuria, unspecified; R53.1 Weakness; R29.6 Repeated falls; R26.81 Unsteadiness on feet; I48.91 Unspecified atrial fibrillation; I11.0 Hypertensive heart disease with heart failure; I50.9 Heart failure, unspecified; J44.9 Chronic obstructive pulmonary disease, unspecified; Z99.81 Dependence on supplemental oxygen; Z79.899 Other long term (current) drug therapy; Z88.8 Allergy status to other drugs, medicaments and biological substances
CPT/HCPCS: 93005; 99285; 96365; 36415; 87086; 82553; 82550; 83605; 85025; 87088; 80053; 81001; 84484; 87186; 80307; 71010; 93010; J7030; J0696

== ENCOUNTER 2017-05-21 15:55 | Observation (INO) | payer MEDICARE, MEDICAID ==
--- NOTE | 2017-05-21 16:19 | ER Document Report ---
ED General - General Chief Complaint: Breathing Difficulty Stated Complaint: DIFFICULTY BREATHING Time Seen by Provider: 05/21/17 16:14 Notes: 81-year-old female with a history of CHF A. fib and COPD on Coumadin nebulizers and diuretics presents with increasing shortness of breath for 2 days, cough with clear sputum without fever. She also has increasing lower extremity swelling and redness. She has been here before for similar decompensations of both her COPD and her CHF. She states that the breathing treatment on the way here made her slightly better. TRAVEL OUTSIDE OF THE [place] IN LAST 30 DAYS: No - Related Data Allergies/Adverse Reactions: JOEY Inhibitors Allergy (Intermediate, Verified 05/21/17 16:29) Angioneurotic Edema Past Medical History - General Information source: Patient - Social History Smoking Status: Former Smoker Family History: Reviewed & Not Pertinent - Past Medical History Cardiac Medical History: Reports: Hx Atrial Fibrillation, Hx Congestive Heart Failure, Hx Hypercholesterolemia, Hx Hypertension Pulmonary Medical History: Reports: Hx Asthma, Hx COPD, Hx Pneumonia Endocrine Medical History: Reports: Hx Diabetes Mellitus Type 2 GI Medical History: Reports: Hx Gastroesophageal Reflux Disease Musculoskeltal Medical History: Reports Hx Arthritis - HANDS AND KNEES Psychiatric Medical History: Reports: Hx Depression Past Surgical History: Reports: Hx Cardiac Catheterization, Hx Hysterectomy, Hx Orthopedic Surgery - B/L knee replacement, Hx Vascular Surgery - Immunizations Hx Diphtheria, Pertussis, Tetanus Vaccination: No Hx Pneumococcal Vaccination: 10/08/14 Review of Systems - Review of Systems Notes: REVIEW OF SYSTEMS GEN: Denies fever, chills, weight loss ENT: Denies sore throat, nasal discharge, ear pain EYES: Denies blurry vision, eye pain, discharge CV: Denies chest pain, palpitations, edema RESP: Shortness of breath cough GI: Denies abdominal pain, nausea, vomiting, diarrhea MSK: Denies joint pain/, positive bilateral lower semi-swelling, SKIN: Denies rash, skin lesions LYMPH: Denies swollen glands/lymph nodes NEURO: Denies headache, focal weakness or numbness, dizziness PSYCH: Denies depression, suicidal or homicidal ideation PHYSICAL EXAMINATION General: No acute distress, well-nourished Head: Atraumatic, normocephalic ENT: Mouth normal, oropharynx moist, no exudates or tonsillar enlargement Eyes: Conjunctiva normal, pupils equal, lids normal Neck: No JVD, supple, no guarding CVS: Normal rate, regular rhythm, no murmurs Resp: No resp distress, equal and normal breath sounds bilaterally. Scant wheezes and crackles bilaterally. GI: Nondistended, soft, no tenderness to palpation, no rebound or guarding Ext: No deformities, impressive chronic appearing bilateral foot leg and ankle edema with mild redness. This is equal on both sides. Back: No CVA or midline TTP Skin: No rash, warm Lymphatic: No lymphadeopathy noted Neuro: Awake, alert. Face symmetric. GCS 15. Physical Exam - Vital signs Vitals: Resp 22 H 05/21/17 16:02 Course - Re-evaluation Re-evalutation: 05/21/17 16:18 81-year-old lady with heart failure and COPD presents with increasing shortness of breath and hypoxia. She does not appear in distress however has stigmata of both heart failure and COPD on her exam. Will do labs and chest x-ray to figure out which is contributing more. 05/21/17 17:13 Patient's x-rays clear except for mild vascular congestion but no pricilla edema. Her labs show a very minimally elevated BNP not severe enough to cause her hypoxia. I will treat her as a COPD exacerbation, give steroids and a DuoNeb and reassess her. 05/21/17 19:05 Patient reassessed at about 6:30 PM. Patient feels slightly better. Her family is quite concerned because she lives at home is essentially chair bound and I cannot take care of her. They state that they are concerned about this intermittent shaking motion that she makes after exertion. She is very dyspneic and cannot even get out of the chair to toilet without becoming severely short of breath. I fear her multiple chronic shortness of shortness of breath or resulting in ambulatory dysfunction as well as having adequate help at home. I offered admission for optimization placement and family consented. - Vital Signs Vital signs: Temp Pulse Resp BP Pulse Ox 18 125/87 H 97 05/21/17 20:01 05/21/17 20:01 05/21/17 20:01 - Laboratory Result Diagrams: 05/21/17 16:23 05/21/17 16:23 Laboratory results interpreted by me: 05/21/17 05/21/17 05/21/17 16:23 16:23 16:23 Hgb 10.7 L Hct 34.6 L MCH 26.8 L MCHC 30.9 L RDW 18.8 H Carbon Dioxide 39 H BUN 28 H Est GFR ( Amer) 58 L Est GFR (Non-Af Amer) 48 L Glucose 142 H POC Glucose NT-Pro-B Natriuret Pep 2540 H 05/21/17 18:42 Hgb Hct MCH MCHC RDW Carbon Dioxide BUN Est GFR ( Amer) Est GFR (Non-Af Amer) Glucose POC Glucose 130 H NT-Pro-B Natriuret Pep - Diagnostic Test Radiology reviewed: Image reviewed, Reports reviewed - EKG Interpretation by Me Rhythm: A.Fib - No significant ST or T-wave changes Discharge - Discharge Clinical Impression: Shortness of breath Condition: Good Disposition: HOME, SELF-CARE Admitting Provider: Hospitalist Unit Admitted: Telemetry Additional Instructions: As we discussed her shortness of breath is likely due to a combination of heart failure but more likely mostly due to your COPD. Improved in the emergency room after some nebulizer treatments and steroids. Her x-ray was normal and her labs were essentially normal as well. There is no indication for admission at this time. There are lots of adjustments to medications that need to be done at home and this should be done via the primary care doctor. Please take your nebulizer every 4 hours and your inhaler every 2 hours as needed on top of that, and take the steroid medicine as prescribed. Please continue taking the remainder of your medications as prescribed. Please return to the emergency room for increasing shortness of breath cough, worse leg swelling or any other concerning symptoms. . Referrals: JOSÉ LUIS NORIEGA PA [Primary Care Provider] - Follow up tomorrow
[2017-05-21 16:31] LABS: ABSOLUTE EOSINOPHILS # (AUTO) 0.1 10^3/uL (0.0-0.6); ABSOLUTE LYMPHOCYTES (AUTO) 0.9 10^3/uL (0.5-4.7); ABSOLUTE MONOCYTES (AUTO) 0.4 10^3/uL (0.1-1.4); ABSOLUTE NEUT (AUTO) 3.9 10^3/uL (1.7-8.2); BASOPHILS % (AUTO) 0.4 % (0-2); EOSINOPHILS % (AUTO) 1.7 % (0-6); HEMATOCRIT 34.6 % (36.0-47.0); HEMOGLOBIN 10.7 g/dL (12.0-15.5); HGB HCT DIFFERENCE -2.5; LYMPHOCYTES % (AUTO) 16.5 % (13-45); MEAN CORPUSCULAR HEMOGLOBIN 26.8 pg (27.0-33.4); MEAN CORPUSCULAR HGB CONC 30.9 g/dL (32.0-36.0); MEAN CORPUSCULAR VOLUME 87 fl (80-97); MONOCYTES % (AUTO) 7.4 % (3-13); RED CELL DISTRIBUTION WIDTH 18.8 % (11.5-14.0); WHITE BLOOD COUNT 5.3 10^3/uL (4.0-10.5)
--- NOTE | 2017-05-21 16:37 | RADIOLOGY REPORT (SQ) ---
EXAM DESCRIPTION: CHEST SINGLE VIEW COMPLETED DATE/TIME: 05/21/2017 4:28 pm REASON FOR STUDY: SOB COMPARISON: 05/16/2017 NUMBER OF VIEWS: One view. TECHNIQUE: Single frontal radiographic view of the chest acquired. LIMITATIONS: None. FINDINGS: LUNGS AND PLEURA: No opacities, masses or pneumothorax. No pleural effusion. Attenuated bl ood vessels and flattened christopher-diaphragms. MEDIASTINUM AND HILAR STRUCTURES: No masses. Contour normal. HEART AND VASCULAR STRUCTURES: Stable cardiomegaly. Pulmonary vascular redistribution. BONES: No acute findings. HARDWARE: None in the chest. OTHER: No other significant finding. IMPRESSION: COPD. Pulmonary vascular congestion. TECHNICAL DOCUMENTATION: JOB ID: [id number] [employer]- All Rights Reserved
[2017-05-21 16:52] LABS: ANION GAP 6 (5-19); BLOOD UREA NITROGEN 28 mg/dL (7-20); CALCIUM 8.7 mg/dL (8.4-10.2); CARBON DIOXIDE 39 mmol/L (22-30); CHLORIDE 98 mmol/L (98-107); CREATININE RESULT 1.09 mg/dL (0.52-1.25); GLUCOSE 142 mg/dL (75-110); POTASSIUM 4.1 mmol/L (3.6-5.0); SODIUM 142.9 mmol/L (137-145)
[2017-05-21] MEDS ORDERED: PREDNISONE 20 MG TABLET PO ONE (17:00)
[2017-05-21] MEDS ORDERED: IPRATROPIUM/ALBUTEROL 0.5-2.5 MG/3 ML AMPUL NEB ONE (17:00)
[2017-05-21 17:08] LABS: TROPONIN I < 0.012 ng/mL
--- NOTE | 2017-05-21 19:22 | EKG REPORT ---
SEVERITY:- ABNORMAL ECG - ATRIAL FIBRILLATION LOW VOLTAGE IN FRONTAL LEADS : Confirmed by: Alexander Perez MD 21-May-2017 19:21:23
[2017-05-21 23:56] LABS: ALANINE AMINOTRANSFERASE 35 U/L (9-52); ALBUMIN 3.6 g/dL (3.5-5.0); ALKALINE PHOSPHATASE 84 U/L (38-126); ASPARTATE AMINO TRANSFERASE 24 U/L (14-36); BILIRUBIN,DIRECT 0.4 mg/dL (0.0-0.4); BILIRUBIN,TOTAL 0.6 mg/dL (0.2-1.3); MAGNESIUM 2.2 mg/dL (1.6-2.3); PARTIAL THROMBOPLASTIN TIME 33.9 SEC (23.5-35.8); PROTHROMBIN TIME 15.5 SEC (11.4-15.4); TOTAL PROTEIN 6.8 g/dL (6.3-8.2)
[2017-05-22] MEDS ORDERED: DEXTROSE 50%-WATER 25 GM/50 ML DISP.SYRIN IV PRN ×2 (00:21)
[2017-05-22] MEDS ORDERED: GLUCAGON,HUMAN RECOMB 1 MG INJ IM PRN (00:21)
[2017-05-22] MEDS ORDERED: DEXTROSE 40% GEL 15 GM TUBE PO PRN ×2 (00:21)
[2017-05-22] MEDS ORDERED: VANCOMYCIN HCL 0 MG in DEXTROSE 5%-WATER 250 ML IV NR (00:30)
[2017-05-22] MEDS ORDERED: PHARMACY COMMUNICATION ORDER MC SCH (00:30)
[2017-05-22] MEDS ORDERED: ACETAMINOPHEN 325 MG TABLET PO PRN (00:38)
[2017-05-22] MEDS ORDERED: PROMETHAZINE HCL 25 MG TABLET PO PRN (00:38)
[2017-05-22] MEDS ORDERED: FUROSEMIDE INJ/PF 40 MG/4 ML SDV IV ONE ×2 (00:45→10:00)
--- NOTE | 2017-05-22 00:59 | PDOC H&P ---
<SCOTT MALLOY - Last Filed: 05/23/17 14:01> History of Present Illness Admission Date/PCP: 05/21/17 23:50 JADA WELSH Medication/Allergy Home Medications: Albuterol Sulfate [Ventolin Hfa] 2 puff IH Q4HP PRN 05/21/17 Apixaban [Eliquis] 5 mg PO Q12 05/21/17 Atorvastatin Calcium [Lipitor 40 mg Tablet] 40 mg PO DAILY 05/21/17 Furosemide [Lasix] 40 mg PO DAILY 05/21/17 Losartan Potassium [Cozaar 25 mg Tablet] 25 mg PO Q12 05/21/17 Metformin HCl [Glucophage] 500 mg PO QAM 05/21/17 Metoprolol Succinate [Toprol Xl 25 mg Tab.sr] 25 mg PO DAILY 05/21/17 Omeprazole 40 mg PO ACBRKFST 05/21/17 Paroxetine HCl [Paxil] 10 mg PO DAILY 05/21/17 Ranitidine HCl [Zantac] 300 mg PO QHS 05/21/17 Acetaminophen [Tylenol 325 mg Tablet] 650 mg PO Q8HP PRN tablet 05/23/17 Doxycycline Hyclate [Vibramycin 100 mg Tablet] 100 mg PO Q12 #18 tablet Allergies/Adverse Reactions: JOEY Inhibitors Allergy (Intermediate, Verified 05/21/17 16:29) Angioneurotic Edema Physical Exam Vital Signs: Temp Pulse Resp BP Pulse Ox 98.7 F 97 18 119/59 L 100 05/23/17 11:27 05/23/17 11:27 05/23/17 11:27 05/23/17 11:27 05/23/17 11:27 Intake & Output 05/22/17 05/23/17 05/24/17 06:59 06:59 06:59 Intake Total 826 648 237 Output Total 1220 2200 100 Balance -394 -1552 137 Weight 123.5 kg 123.4 kg 123.4 kg Results Laboratory Results: 05/22/17 05:45 05/22/17 05:45 05/22/17 05:45 Troponin I < 0.012 Impressions: Chest X-Ray 05/21/17 16:13 IMPRESSION: COPD. Pulmonary vascular congestion. Assessment & Plan - Diagnosis (1) Acute on chronic diastolic heart failure Is this a current diagnosis for this admission?: Yes (2) Cellulitis of left leg Is this a current diagnosis for this admission?: Yes (3) Cellulitis of right leg Is this a current diagnosis for this admission?: Yes (4) CONTE (dyspnea on exertion) Is this a current diagnosis for this admission?: Yes (5) Dietary indiscretion Is this a current diagnosis for this admission?: Yes (6) Falls QualifierTitle: Encounter type: initial encounter Qualified Code(s): W19.XXXA - Unspecified fall, initial encounter Is this a current diagnosis for this admission?: Yes (7) General weakness Is this a current diagnosis for this admission?: Yes <MYNOR PEDRAZA - Last Filed: 05/24/17 22:42> History of Present Illness Admission Date/PCP: 05/21/17 21:[address] No Patient complains of: Short of breath History of Present Illness: RACHEL LAN is a 81 year old female with underlying type 2 diabetes mellitus, mild depression without suicidal or homicidal ideation, hyperlipidemia, mild arthritis, mild reflux, home O2 dependent COPD, 3 L oxygen per nasal cannula, 30/04, atrial fibrillation, on Eliquis for same, and echocardiogram last year revealing ejection fraction low normal, with diastolic function not able to be adequately assessed, who presents to the emergency room for evaluation of a 2 day history of slowly progressive primarily dyspnea on exertion. Patient has been discussed with emergency room physician who evaluated the patient. Denies chest pain. Has chronic abdominal discomfort, without recent change. No nausea vomiting. Questionable fever, but no chills. No diarrhea or dysuria. Mild dry cough. States recently she has developed "the shakes" when she gets very tired and very short of breath. No history of seizure stroke. Questionable history of TIA. Weighs herself every morning. States she may have gained 6 pounds over the last month. Describes a several week history of very slowly progressive swelling of her ankles. Describes a 2-3 day history of redness and tenderness of her lower legs just above the ankles. Admits to dietary indiscretion; likes her chips. Compliant with medications. The only recent medication changes been the addition of an oral antibiotic for a urinary tract infection, started on Sunday. Initial attempts by the emergency room physician were to discharge the patient home. However, she was noted to be quite short of breath with virtually any exertion. Daughter and son-in-law, who were present at her side at that time, stated they are having increasing difficulty managing her at home. However, patient does state that home health is actually scheduled to start on the 15 of this month. She is currently resting quietly, states she feels a bit better. Dictation via voice recognition software. Laboratory results are listed in [facility] and are reviewed. X-ray summary results are listed below, with full report(s) reviewed. . EKG reviewed. Social history/personal habits: . Lives with daughter and son-in-law. Retired. No tobacco use for 18 years. No alcohol or illicit drug use. Allergies/adverse reactions are listed in [facility] and are reviewed. Home medications initially autopopulated into [facility] may not accurately reflect patient's true medications, dosages, and/or frequencies. press technician has reconciled medications. REVIEW OF SYSTEMS: Constitutional: See history and present illness. Eyes: Wears glasses. ENT: No swallowing problems or complaints. Partial hearing loss. Pulmonary: See history and present illness. Cardiovascular: No current complaints, including chest pain. Gastrointestinal: See history and present illness. Skin: No current complaints, including rashes. Hematologic: Easy bruising. Neurologic: See history and present illness. Musculoskeletal: Joint pain from arthritis. Psychiatric: Mild depression. Denies suicidal or homicidal ideation. Endocrine: No current complaints, including polyuria. Genitourinary: No current complaints, including dysuria. PHYSICAL EXAMINATION: Neither height nor weight are recorded on the chart. Blood pressure 119/89. Pulse 105 and slightly irregular. 95% saturation on room air. Respirations are 22 and unlabored. Temperature not recorded on chart; skin feels normothermic. Skin is warm and dry. No grossly obvious evidence of rash in areas of skin examined. No subcutaneous nodules palpated. See comments under "extremities" below. ENT: Hearing grossly normal to normal conversation. Tongue midline on protrusion pink and slightly tacky. Eyes: No scleral icterus. Pupils equal and reactive to light at 4 mm. [place] conjunctivae. Neck is supple and nontender to gentle active range of motion and palpation. Midline trachea. No palpable thyroid nodule mass enlargement or tenderness. Lymphatic: No palpable cervical or clavicular nodes. Neck and lymphatic exams limited by patient body habitus. Psychiatric: Reasonable insight into acute and chronic medical issues. Oriented to time location and why here. Lungs: Auscultation reveals clear and equal breath sounds bilaterally. No use of accessory respiratory muscles. Cardiovascular: Heart regular rate and rhythm, without gallop murmur or rub. No carotid or abdominal aortic bruits. Moderate bilateral symmetric slightly pitting lower calf, ankle, and pedal edema, in particular on the dorsum of her feet. Not sure I can palpate dorsalis pedis and posterior tibial pulses on either side due to her peripheral edema, but feet are warm and dry, with excellent capillary refill. Abdomen:soft obese with positive bowel sounds. Very mild diffuse abdominal discomfort to palpation; certainly no evidence of guarding or peritoneal signs. Patient states this is a chronic condition. Unable to adequately evaluate abdomen for masses or organomegaly due to body habitus. Extremities: Feet are warm and dry. No calf tenderness to compression. Gentle manipulation of lower extremities fails to reveal any obvious evidence of injury or instability to knees hips or ankles. Patient has a circumferential bandlike area of mild inflammation, warmth, and mild tenderness, approximately 8-10 cm in width just above her left ankle. Similar finding though not circumferential, mostly anteriorly and laterally, just above right ankle. No crepitus fluctuance or expressible discharge. Neurologic: Moves upper extremities grossly normally. Patellar reflexes absent. Absent Babinski. Light touch is intact at feet. Dorsiflexion and plantarflexion of feet 5 / 5 and symmetric. Past Medical History Cardiac Medical History: Reports: Atrial Fibrillation, Congestive Heart Failure - Systolic function "low normal", Hyperlipidema, Hypertension Denies: DVT, Pulmonary Embolism Pulmonary Medical History: Reports: Asthma, Chronic Obstructive Pulmonary Disease (COPD), Pneumonia Denies: Sleep Apnea EENT Medical History: Reports: Eyes - Glasses, Ears - Partial hearing loss Denies: Throat Neurological Medical History: Reports: Other - Questionable TIA Denies: Hemorrhagic CVA, Ischemic CVA, Seizures Endocrine Medical History: Reports: Diabetes Mellitus Type 2 Denies: Diabetes Mellitus Type 1, Hyperthyroidism, Hypothyroidism Malignancy Medical History: Reports: Skin Cancer GI Medical History: Reports: Gastroesophageal Reflux Disease Denies: Cirrhosis, Hepatitis, Peptic Ulcer Disease Musculoskeltal Medical History: Reports: Arthritis Psychiatric Medical History: Reports: Depression Denies: Alcohol Dependency, General Anxiety Disorder, Substance Abuse, Tobacco Dependency Hematology: Reports: Other - Easy bruising Denies: Anemia Infectious Medical History: Denies: Hepatitis B, Hepatitis C Past Surgical History Past Surgical History: Reports: Cardiac Catheterization, Hysterectomy, Orthopedic Surgery - B/L knee replacement, Vascular Surgery Social History Information Source: Patient, Emergency Med Personnel, [facility] Records Lives with: Family Smoking Status: Former Smoker Number of Years Smokin Last Time Smoked: 1998 Frequency of Alcohol Use: None Hx Recreational Drug Use: No Drugs: None Hx Prescription Drug Abuse: No - Advance Directive Resuscitation Status: Full Code Surrogate healthcare decision maker:: Daughter Family History Family History: Reviewed & Not Pertinent Parental Family History Reviewed: Yes - Father of alcohol complications; mother of brain tumor Children Family History Reviewed: Yes - Healthy Sibling(s) Family History Reviewed.: Yes - Healthy Physical Exam Vital Signs: Temp Pulse Resp BP Pulse Ox 101 H 24 H 119/89 H 95 05/22/17 00:30 05/22/17 00:00 05/21/17 23:48 05/22/17 00:00 Results Laboratory Results: 05/21/17 05/21/17 23:29 23:29 Magnesium 2.2 Total Bilirubin 0.6 AST 24 ALT 35 Alkaline Phosphatase 84 Total Protein 6.8 Albumin 3.6 TSH 0.94 05/21/17 23:29 Troponin I < 0.012 Impressions: Chest X-Ray 05/21/17 16:13 IMPRESSION: COPD. Pulmonary vascular congestion. Assessment & Plan - Diagnosis (1) Cellulitis of left leg Is this a current diagnosis for this admission?: Yes Plan: Ancef and intravenous vancomycin. Pharmacy to assist with dosing. I have strongly encouraged patient not to get out of bed without notifying staff , to avoid a fall with injury. We will forego SCDs due to her bilateral lower extremity cellulitis. With patient on Eliquis, no need for Lovenox or heparin. Impression and plans were discussed with patient, who concurs. Time spent in evaluation and management of patient: 80 minutes. (2) Cellulitis of right leg Is this a current diagnosis for this admission?: Yes Plan: As above. (3) Congestive heart failure Qualifiers: Congestive heart failure type: unspecified congestive heart failure type Congestive heart failure chronicity: acute on chronic Qualified Code(s): I50.9 - Heart failure, unspecified Is this a current diagnosis for this admission?: Yes Plan: Likely due to underlying dietary indiscretion. CHF protocol. Parenteral Lasix now and later this morning. Serial troponins. (4) CONTE (dyspnea on exertion) Is this a current diagnosis for this admission?: Yes (5) Dietary indiscretion Is this a current diagnosis for this admission?: Yes Plan: Dietary consult. (6) Falls Qualifiers: Encounter type: initial encounter Qualified Code(s): W19.XXXA - Unspecified fall, initial encounter Is this a current diagnosis for this admission?: Yes Plan: Physical therapy consult. Denies "hitting anything." (7) General weakness Is this a current diagnosis for this admission?: Yes (8) Anemia Qualifiers: Anemia type: unspecified type Qualified Code(s): D64.9 - Anemia, unspecified Is this a current diagnosis for this admission?: Yes Plan: Follow-up CBC with differential. No need for transfusion at present time. (9) Anticoagulated Is this a current diagnosis for this admission?: Yes Plan: Resume home medications as appropriate once these have been determined and reviewed. (10) CKD (chronic kidney disease), stage III Is this a current diagnosis for this admission?: Yes Plan: Resume home medications as appropriate once these have been determined and reviewed. (11) COPD (chronic obstructive pulmonary disease) Qualifiers: COPD type: unspecified COPD Qualified Code(s): J44.9 - Chronic obstructive pulmonary disease, unspecified Is this a current diagnosis for this admission?: Yes Plan: feel her shortness of breath is likely more an element of CHF exacerbation other than COPD exacerbation. Resume home medications as appropriate once these have been determined and reviewed. (12) Chronic atrial fibrillation Is this a current diagnosis for this admission?: Yes Plan: Resume home medications as appropriate once these have been determined and reviewed. (13) Diabetes mellitus type 2 in obese Is this a current diagnosis for this admission?: Yes Plan: Diabetic cardiac prerenal diet. Accu-Cheks with appropriate sliding scale coverage. Resume home medications as appropriate once these have been determined and reviewed. (14) HLD (hyperlipidemia) Qualifiers: Hyperlipidemia type: unspecified Qualified Code(s): E78.5 - Hyperlipidemia , unspecified Is this a current diagnosis for this admission?: Yes Plan: Resume home medications as appropriate once these have been determined and reviewed. - Time Time Spent: Greater than 70 Minutes Medications reviewed and adjusted accordingly: Yes Anticipated discharge: Home Within: within 48 hours
[2017-05-22] MEDS ORDERED: CEFAZOLIN 1 GM/D5W RTU 1 GM/50 ML RTUPB IV ONE (01:00)
[2017-05-22] MEDS ORDERED: VANCOMYCIN HCL INJ 1000 MG VIAL IV PRN (01:12)
[2017-05-22] MEDS: INSULIN LISPRO 100 UNIT/ML 3 ML VIAL SUBCUT PRN ×3 (01:15→17:20)
[2017-05-22 01:19] LABS: APPEARANCE,URINE CLOUDY; BILIRUBIN,URINE NEGATIVE (NEGATIVE); GLUCOSE, URINE NEGATIVE (NEGATIVE); KETONES,URINE NEGATIVE (NEGATIVE); LEUKOCYTE ESTERASE,URINE NEGATIVE (NEGATIVE); NITRITE,URINE NEGATIVE (NEGATIVE); PROTEIN,URINE 30 mg/dL (NEGATIVE); URINE SPECIFIC GRAVITY 1.025; UROBILINOGEN,URINE NEGATIVE mg/dL (<2.0)
[2017-05-22] MEDS ORDERED: VANCOMYCIN HCL INJ 1000 MG VIAL ONE (01:46)
[2017-05-22] MEDS ORDERED: VANCOMYCIN HCL 2,000 MG in DEXTROSE 5%-WATER 500 ML IV ONE (02:00)
[2017-05-22 06:02] LABS: ABSOLUTE LYMPHOCYTES (AUTO) 0.6 10^3/uL (0.5-4.7); ABSOLUTE MONOCYTES (AUTO) 0.2 10^3/uL (0.1-1.4); BASOPHILS % (AUTO) 0.5 % (0-2); HEMATOCRIT 33.2 % (36.0-47.0); HEMOGLOBIN 10.4 g/dL (12.0-15.5); LYMPHOCYTES % (AUTO) 9.8 % (13-45); MEAN CORPUSCULAR HEMOGLOBIN 26.9 pg (27.0-33.4); MEAN CORPUSCULAR HGB CONC 31.4 g/dL (32.0-36.0); MEAN CORPUSCULAR VOLUME 86 fl (80-97); MONOCYTES % (AUTO) 3.9 % (3-13); RED BLOOD COUNT 3.87 10^6/uL (3.72-5.28); RED CELL DISTRIBUTION WIDTH 18.5 % (11.5-14.0); SEGMENTED NEUTROPHILS % (AUTO) 85.8 % (42-78); WHITE BLOOD COUNT 5.9 10^3/uL (4.0-10.5)
[2017-05-22 06:17] LABS: ANION GAP 11 (5-19); BLOOD UREA NITROGEN 24 mg/dL (7-20); CALCIUM 8.7 mg/dL (8.4-10.2); CARBON DIOXIDE 33 mmol/L (22-30); CHLORIDE 97 mmol/L (98-107); GLUCOSE 239 mg/dL (75-110); POTASSIUM 4.2 mmol/L (3.6-5.0); SODIUM 140.8 mmol/L (137-145)
--- NOTE | 2017-05-22 08:31 | Physician Advisory Note ---
Physician Advisor ProgressNote .: Pursuant to the plan for [facility], I have reviewed the medical record for this patient. Physician Advisor Statement: Please consider documentin. "Acute on chronic hypoxemic respiratory failure, with labored breathing/ accessory muscle use in ED, initial O2 sat 84% on her usual 3L O2 for EMS" (see below) 2. "obesity w/BMI 46.7" 3. "Acute on chronic CHF, likely ___ type" (most likely systolic, diastolic, or both? - last DCSummary said diastolic. ECHO then showed "low nl" EF, borderline conc LVH, mild-mod MR) 4. "Persistent Afib" (vs paroxysmal) 5. Status - below. Status: If pt is not sufficiently improved for safe d/c on 05/22, please document reasons/ongoing concerns, & may change to Inpatient status. Discussion: 81yo Medicare pt w/ underlying COPD/chr resp failure w/baseline use 3L O2 at all times, chronic __ type CHF, persistent Afib, HTN, HLD, DM-2, GERD came in late 05/21 w/SOB worsening & BLE edema/erythema, unable to get out of chair to toilet without severe SOB. EMS gave at least 1 neb. ED nurse reports EMS found pt w/sat 84% initially on her usual 3L. (This info was clarified/confirmed w/nurse this AM by Ariadna.) Pt had labored breathing w/accessory muscle use initially in the ED. HR 105, RR22-30, WBC WNL, CXR w/mild vasc congestion, Hgb 10.7, bicarb 39, BUN 28, BNP 2540 (the highest it has been at [facility] so far). ED gave Duoneb & Prednisone 60mg with reported improvement, stated that they suspected COPD exac > CHF exac. Admitting attending documented wt gain, too much salt in diet, increased edema, pt quite SOB w/virtually any exertion, felt this was Ac/chr __ type CHF + BLE cellulitis + weakness w/falls, & ordered IV Ancef/vanc, Lasix 60 IV x1, then Lasix 40mg daily, PT, incentive spirometry, I/Os, daily wts. Thanks! CK
[2017-05-22] MEDS ORDERED: APIXABAN 5 MG TABLET PO SCH (10:00)
[2017-05-22] MEDS ORDERED: (PENDING PHARMACY ID) (Paroxetine Hcl [Paxil] 10 MG) PO SCH (10:00)
[2017-05-22] MEDS: LOSARTAN POTASSIUM 25 MG TABLET PO SCH ×2 (10:49→21:49)
[2017-05-22] MEDS: METOPROLOL SUCCINATE 25 MG TAB.SR.24H PO SCH (10:49)
[2017-05-22] MEDS: ATORVASTATIN CALCIUM 40 MG TABLET PO SCH (10:50)
[2017-05-22] MEDS: CEFAZOLIN 1 GM/D5W RTU 1 GM/50 ML RTUPB IV SCH ×2 (10:50→17:20)
[2017-05-22] MEDS ORDERED: APIXABAN 5 MG TABLET PO ONE (11:00)
--- NOTE | 2017-05-22 16:37 | PDOC PROGRESS REPORT ---
Subjective Progress Note for:: 05/22/17 Subjective:: Patient is seen on morning rounds. She is resting in bed. She denies shortness of breath presently at rest. She states she has had increasing edema in her lower legs, left greater than right, with increasing redness and pain that began over the last 3 days, worsening. She denies any fevers or chills. She states she has had increasing difficulty walking due to edema in the lower legs. She does admit to some dietary indiscretions regarding her low sodium diet recently. She has been taking her medications as ordered. Physical Exam Vital Signs: Temp Pulse Resp BP Pulse Ox 97.6 F 95 19 136/64 H 96 05/22/17 12:15 05/22/17 12:15 05/22/17 12:15 05/22/17 12:15 05/22/17 12:15 Intake & Output 05/21/17 05/22/17 05/23/17 06:59 06:59 06:59 Intake Total 826 237 Output Total 1220 400 Balance -394 -163 Weight 123.5 kg General appearance: PRESENT: no acute distress, morbidly obese, well-developed, well-nourished Head exam: PRESENT: atraumatic, normocephalic Eye exam: PRESENT: conjunctiva pink, EOMI, PERRLA. ABSENT: scleral icterus Ear exam: PRESENT: normal external ear exam Mouth exam: PRESENT: moist, tongue midline Neck exam: ABSENT: carotid bruit, JVD, lymphadenopathy, thyromegaly Respiratory exam: PRESENT: decreased breath sounds, prolonged expiratory phas, symmetrical, unlabored Cardiovascular exam: PRESENT: RRR. ABSENT: diastolic murmur, rubs, systolic murmur Pulses: PRESENT: normal carotid pulses, normal radial pulses GI/Abdominal exam: PRESENT: normal bowel sounds, soft. ABSENT: distended, guarding, mass, organolmegaly, rebound, tenderness Rectal exam: PRESENT: deferred Extremities exam: PRESENT: calf tenderness, other - +3 edema of the left lower leg Musculoskeletal exam: PRESENT: deformity, full ROM, tenderness Neurological exam: PRESENT: alert, awake, oriented to person, oriented to place , oriented to time, oriented to situation, CN II-XII grossly intact. ABSENT: motor sensory deficit Psychiatric exam: PRESENT: appropriate affect, normal mood. ABSENT: homicidal ideation, suicidal ideation Skin exam: PRESENT: dry, intact, warm. ABSENT: cyanosis, rash Results Laboratory Results: 05/22/17 05:45 05/22/17 05:45 05/22/17 05/22/17 05:45 05:45 WBC 5.9 RBC 3.87 Hgb 10.4 L Hct 33.2 L MCV 86 MCH 26.9 L MCHC 31.4 L RDW 18.5 H Plt Count 154 Seg Neutrophils % 85.8 H Lymphocytes % 9.8 L Monocytes % 3.9 Eosinophils % 0.0 Basophils % 0.5 Absolute Neutrophils 5.0 Absolute Lymphocytes 0.6 Absolute Monocytes 0.2 Absolute Eosinophils 0.0 Absolute Basophils 0.0 Sodium 140.8 Potassium 4.2 Chloride 97 L Carbon Dioxide 33 H Anion Gap 11 BUN 24 H Creatinine 1.00 Est GFR ( Amer) > 60 Est GFR (Non-Af Amer) 53 L Glucose 239 H Calcium 8.7 05/22/17 05:45 Troponin I < 0.012 Impressions: Chest X-Ray 05/21/17 16:13 IMPRESSION: COPD. Pulmonary vascular congestion. Assessment & Plan - Diagnosis (1) Acute on chronic diastolic heart failure Is this a current diagnosis for this admission?: YesPlan: Increasing lower extremity edema, will diuresis. Counseled on need to maintain low sodium diet (2) Cellulitis of left leg Is this a current diagnosis for this admission?: YesPlan: Secondary to increasing edema and breaks in the epidermis. Will continue broad spectrum IV antibiotics today await blood cultures, can likely transition to oral. Patient is afebrile and has no leucocytosis. Discussed support stockings and elevation of legs (3) Cellulitis of right leg Is this a current diagnosis for this admission?: YesPlan: As number one (4) CONTE (dyspnea on exertion) Is this a current diagnosis for this admission?: YesPlan: Fluid vol overload will continue to diureses (5) Dietary indiscretion Is this a current diagnosis for this admission?: Yes (6) Falls Qualifiers: Encounter type: initial encounter Qualified Code(s): W19.XXXA - Unspecified fall, initial encounter Is this a current diagnosis for this admission?: YesPlan: Secondary to edema will continue to diurese (7) General weakness Is this a current diagnosis for this admission?: YesPlan: Secondary to edema and diastolic heart failure - Time Time Spent with patient: 25-34 minutes Critical Time spent with patient: 25-34 minutes Medications reviewed and adjusted accordingly: Yes Anticipated discharge: Home with Homehealth
[2017-05-22] MEDS: APIXABAN 5 MG TABLET PO SCH (21:48)
[2017-05-22] MEDS ORDERED: FAMOTIDINE 20 MG TABLET PO SCH (22:00)
[2017-05-22] MEDS ORDERED: (PENDING PHARMACY ID) (Ranitidine Hcl [Zantac] 300 MG) PO SCH (22:00)
[2017-05-23] MEDS: CEFAZOLIN 1 GM/D5W RTU 1 GM/50 ML RTUPB IV SCH ×2 (01:44→09:33)
[2017-05-23] MEDS ORDERED: METFORMIN HCL 500 MG TABLET PO SCH (08:00)
[2017-05-23] MEDS ORDERED: LANSOPRAZOLE 30 MG TAB.RAP.DR PO SCH (08:00)
[2017-05-23] MEDS: METOPROLOL SUCCINATE 25 MG TAB.SR.24H PO SCH (09:34)
[2017-05-23] MEDS: ATORVASTATIN CALCIUM 40 MG TABLET PO SCH (09:34)
[2017-05-23] MEDS: LOSARTAN POTASSIUM 25 MG TABLET PO SCH (09:35)
[2017-05-23] MEDS: APIXABAN 5 MG TABLET PO SCH (09:35)
[2017-05-23] MEDS ORDERED: FUROSEMIDE INJ/PF 20 MG/2 ML SDV IV ONE (09:55)
[2017-05-23] MEDS ORDERED: FUROSEMIDE 40 MG TABLET PO SCH (10:00)
[2017-05-23] MEDS ORDERED: PAROXETINE HCL 20 MG TABLET PO SCH (10:00)
[2017-05-23] MEDS ORDERED: FUROSEMIDE INJ/PF 20 MG/2 ML SDV ONE (10:39)
[2017-05-23] MEDS ORDERED: DOXYCYCLINE HYCLATE 100 MG TABLET PO ONE (11:00)
--- NOTE | 2017-05-23 14:10 | PDOC DISCHARGE SUMMARY ---
General - Admit/Disc Date/PCP Admission Date/Primary Care Provider: 05/21/17 23:50 JADA WELSH Discharge Date: 05/23/17 - Discharge Diagnosis (1) Acute on chronic diastolic heart failure Is this a current diagnosis for this admission?: Yes Summary: Patient was diuresed. Shortness of breath is improved. Lower extremity edema is much improved (2) Cellulitis of left leg Is this a current diagnosis for this admission?: Yes Summary: Improved will transition to Doxycyline 100 mg bid x 10 days (3) Cellulitis of right leg Is this a current diagnosis for this admission?: Yes Summary: As above (4) CONTE (dyspnea on exertion) Is this a current diagnosis for this admission?: Yes Summary: Patient has baseline COPD on home oxygen 30/04. Breathing is at baseline after diuresis (5) Dietary indiscretion Is this a current diagnosis for this admission?: Yes Summary: Counseled (6) Falls Is this a current diagnosis for this admission?: Yes Summary: Continue with home physical therapy (7) General weakness Is this a current diagnosis for this admission?: Yes Summary: Improved - Additional Information Resuscitation Status: Full Code Discharge Diet: Cardiac, Diabetic Discharge Activity: Activity As Tolerated, Balance Activity w/Rest, Weigh Daily Home Medications: Albuterol Sulfate [Ventolin Hfa] 2 puff IH Q4HP PRN 05/21/17 Apixaban [Eliquis] 5 mg PO Q12 05/21/17 Atorvastatin Calcium [Lipitor 40 mg Tablet] 40 mg PO DAILY 05/21/17 Furosemide [Lasix] 40 mg PO DAILY 05/21/17 Losartan Potassium [Cozaar 25 mg Tablet] 25 mg PO Q12 05/21/17 Metformin HCl [Glucophage] 500 mg PO QAM 05/21/17 Metoprolol Succinate [Toprol Xl 25 mg Tab.sr] 25 mg PO DAILY 05/21/17 Omeprazole 40 mg PO ACBRKFST 05/21/17 Paroxetine HCl [Paxil] 10 mg PO DAILY 05/21/17 Ranitidine HCl [Zantac] 300 mg PO QHS 05/21/17 Acetaminophen [Tylenol 325 mg Tablet] 650 mg PO Q8HP PRN tablet 05/23/17 Doxycycline Hyclate [Vibramycin 100 mg Tablet] 100 mg PO Q12 #18 tablet History of Present Illness Patient complains of: Shortness of breath History of Present Illness: RACHEL LAN is a 81 year old female Hospital Course Hospital Course: Patient was admitted to [facility] on telemetry. She was started on IV diuretics. She was also started on IV broad-spectrum antibiotics for her lower extremity cellulitis. She was able to be diuresed well. Lower extremity edema improved. She continues to have left greater than right lower extremity edema due to chronic venous stasis. Patient had no fever or leukocytosis. Blood cultures remain negative. She was transitioned to oral antibiotics today. She feels her breathing is back to baseline and she feels ready for discharge. She will be discharged with home health nursing, aids and physical therapy. Physical Exam Vital Signs: Temp Pulse Resp BP Pulse Ox 98.7 F 97 18 119/59 L 100 05/23/17 11:27 05/23/17 11:27 05/23/17 11:27 05/23/17 11:27 05/23/17 11:27 Intake & Output 05/22/17 05/23/17 05/24/17 06:59 06:59 06:59 Intake Total 826 648 237 Output Total 1220 2200 100 Balance -394 -1552 137 Weight 123.5 kg 123.4 kg 123.4 kg General appearance: PRESENT: no acute distress, morbidly obese Head exam: PRESENT: atraumatic, normocephalic Eye exam: PRESENT: conjunctiva pink, EOMI, PERRLA. ABSENT: scleral icterus Ear exam: PRESENT: normal external ear exam Mouth exam: PRESENT: moist, tongue midline Neck exam: ABSENT: carotid bruit, JVD, lymphadenopathy, thyromegaly Respiratory exam: PRESENT: clear to auscultation allyn. ABSENT: rales, rhonchi, wheezes Cardiovascular exam: PRESENT: RRR. ABSENT: diastolic murmur, rubs, systolic murmur Pulses: PRESENT: normal dorsalis pedis pul Vascular exam: PRESENT: normal capillary refill GI/Abdominal exam: PRESENT: normal bowel sounds, soft. ABSENT: distended, guarding, mass, organolmegaly, rebound, tenderness Rectal exam: PRESENT: deferred Extremities exam: PRESENT: +2 edema Musculoskeletal exam: PRESENT: ambulatory, full ROM Neurological exam: PRESENT: alert, awake, oriented to person, oriented to place , oriented to time, oriented to situation, CN II-XII grossly intact. ABSENT: motor sensory deficit Psychiatric exam: PRESENT: appropriate affect, normal mood. ABSENT: homicidal ideation, suicidal ideation Skin exam: PRESENT: dry, intact, warm. ABSENT: cyanosis, rash Results Laboratory Results: 05/22/17 05:45 05/22/17 05:45 05/22/17 05:45 Troponin I < 0.012 Impressions: Chest X-Ray 05/21/17 16:13 IMPRESSION: COPD. Pulmonary vascular congestion. Qualifiers PATEINT BEING DISCHARGED WITH ANY OF THE FOLLOWING DIAGNOSIS?: Heart Failure HF Pt being discharged on ACEI for LVEF less than 40%?: Yes HF Pt being discharged on ARBS for LVEF less than 40%?: Yes HF Pt discharged on evidence-based Beta Camille:: Yes Plan Discharge Plan: Home with home health, physical therapy and nursing Time Spent: Less than 30 Minutes
[2017-05-23 15:54] VITALS: BP 130/79
[2017-05-23] MEDS ORDERED: DOXYCYCLINE HYCLATE 100 MG TABLET PO SCH (22:00)
== END 2017-05-23 16:50 | disposition home or self-care (01) ==
LOC: ER 15:55 → UNDOADMOB 21:27 → EH 21:27 → INTOOBSV 21:27 → 3W 23:50 → EH 05-22 00:14 → 3W 05-22 00:14
PROVIDERS: ADMIT Family Medicine; ATTEND Family Medicine
PROC: 3E0F7GC Introduction of Other Therapeutic Substance into Respiratory Tract, Via Natural or Artificial Opening (ICD-10-PCS; principal; 2017-05-21)
DX: I11.0 Hypertensive heart disease with heart failure (principal); I50.33 Acute on chronic diastolic (congestive) heart failure; L03.116 Cellulitis of left lower limb; L03.115 Cellulitis of right lower limb; R06.09 Other forms of dyspnea; J44.9 Chronic obstructive pulmonary disease, unspecified; R29.6 Repeated falls; R53.1 Weakness; I87.8 Other specified disorders of veins; W19.XXXA Unspecified fall, initial encounter; E11.9 Type 2 diabetes mellitus without complications; F32.9 Major depressive disorder, single episode, unspecified; E78.5 Hyperlipidemia, unspecified; K21.9 Gastro-esophageal reflux disease without esophagitis; E66.9 Obesity, unspecified; D64.9 Anemia, unspecified; I48.2 Chronic atrial fibrillation; M13.862 Other specified arthritis, left knee; M13.861 Other specified arthritis, right knee; Z74.09 Other reduced mobility; Z99.81 Dependence on supplemental oxygen; Z91.11 Patient's noncompliance with dietary regimen; Z79.899 Other long term (current) drug therapy; Z79.84 Long term (current) use of oral hypoglycemic drugs; Z85.828 Personal history of other malignant neoplasm of skin; Z90.710 Acquired absence of both cervix and uterus; Z96.653 Presence of artificial knee joint, bilateral; Z87.891 Personal history of nicotine dependence; Z84.89 Family history of other specified conditions; Z79.01 Long term (current) use of anticoagulants; Z68.42 Body mass index [BMI] 45.0-49.9, adult
CPT/HCPCS: 93005; 94640; 99285; 36415 ×2; 87040; 82962 ×3; 83735; 84443; 85025 ×2; 85610; 85730; 80076; 80048 ×2; 81001; 84484 ×2; 83880; 71010; 94799 ×2; 93010; 97110; 97163; G0378 ×2; J0690 ×2; A9270 ×15; J1940 ×2; J3490 ×2; J3370; G8978; G8979; J1815; J7512; J7620

== ENCOUNTER 2017-06-06 12:56 | Emergency (ER) | payer MEDICARE, MEDICAID ==
--- NOTE | 2017-06-06 14:28 | ER Document Report ---
ED Respiratory Problem - General Information source: Patient TRAVEL OUTSIDE OF THE [place] IN LAST 30 DAYS: No - HPI Patient complains to provider of: Short of breath Onset: Just prior to arrival Duration: Worse/persistent Context: Hx CHF, Hx COPD Associated symptoms: Other - bilateral leg swelling Similar symptoms previously: Yes Recently seen / treated by doctor: Yes <LAURITA ALEXANDRE - Last Filed: 06/06/17 14:28> <GUSTABO BRIGHT - Last Filed: 06/06/17 20:01> - General Chief Complaint: Breathing Difficulty Stated Complaint: WEAKNESS Time Seen by Provider: 06/06/17 14:16 Notes: Patient is an 81-year-old female who presents to the emergency department today with complaints of shortness of breath. Patient was admitted a little over 2 weeks ago for similar complaints. Patient has a history of CHF and COPD. Patient states she is not smoking but she does have exposure to secondhand smoke at her home. Patient states her shortness of breath became bad overnight at approximately 0400. Patient is on 2L of home oxygen at all times. Patient also complains of bilateral leg swelling. Patient denies fevers. (LAURITA ALEXANDRE ) - Related Data Allergies/Adverse Reactions: JOEY Inhibitors Allergy (Intermediate, Verified 06/06/17 13:15) Angioneurotic Edema Past Medical History - General Information source: Patient, [facility] Records - Social History Smoking Status: Former Smoker - current exposure to second hand smoking by family Cigarette use (# per day): No Frequency of alcohol use: None Drug Abuse: None Lives with: Family Family History: Reviewed & Not Pertinent - Past Medical History Cardiac Medical History: Reports: Hx Atrial Fibrillation, Hx Congestive Heart Failure - Systolic function "low normal", Hx Hypercholesterolemia, Hx Hypertension Pulmonary Medical History: Reports: Hx Asthma, Hx COPD, Hx Pneumonia Endocrine Medical History: Reports: Hx Diabetes Mellitus Type 2 Malignancy Medical History: Reports: Hx Skin Cancer GI Medical History: Reports: Hx Gastroesophageal Reflux Disease Musculoskeltal Medical History: Reports Hx Arthritis Psychiatric Medical History: Reports: Hx Depression Past Surgical History: Reports: Hx Cardiac Catheterization, Hx Hysterectomy, Hx Orthopedic Surgery - B/L knee replacement, Hx Vascular Surgery - Immunizations Hx Diphtheria, Pertussis, Tetanus Vaccination: No Hx Pneumococcal Vaccination: 10/08/14 <LAURITA ALEXANDRE - Last Filed: 06/06/17 14:28> Review of Systems - Review of Systems Constitutional: denies: Fever EENT: No symptoms reported Cardiovascular: No symptoms reported Respiratory: See HPI, Short of breath, Wheezing Gastrointestinal: No symptoms reported Genitourinary: No symptoms reported Female Genitourinary: No symptoms reported Musculoskeletal: See HPI, Leg swelling Skin: No symptoms reported Hematologic/Lymphatic: No symptoms reported Neurological/Psychological: No symptoms reported -: Yes All other systems reviewed and negative <LAURITA ALEXANDRE - Last Filed: 06/06/17 14:28> Physical Exam <LAURITA ALEXANDRE - Last Filed: 06/06/17 14:28> <GUSTABO BRIGHT - Last Filed: 06/06/17 20:01> - Vital signs Vitals: Temp Pulse BP Pulse Ox 98.2 F 78 129/95 H 96 06/06/17 13:03 06/06/17 13:03 06/06/17 13:03 06/06/17 13:03 - Notes Notes: Physical Exam: General: Alert, appears well. HEENT: Normocephalic. Atraumatic. PERRL. Extraocular movements intact. Oropharynx clear. Neck: Supple. Non-tender. Respiratory: No respiratory distress. Rales bilaterally. No rhonchi or wheezing. Cardiovascular: Regular rate and rhythm. Abdominal: Morbidly obese. No distension. Normal Bowel Sounds. Back: Non-tender. No deformity or step off. Extremities: Moves all four extremities. Upper extremities: Normal inspection. Normal ROM. Lower extremities: 3+ pitting edema with associated skin blistering Neurological: Normal cognition. AAOx4. Normal speech. Psychological: Normal affect. Normal Mood. Skin: Warm. Dry. Normal color. (LAURITA ALEXANDRE) Course <LAURITA ALEXANDRE - Last Filed: 06/06/17 14:28> - Laboratory Result Diagrams: 06/06/17 13:30 06/06/17 15:18 - Diagnostic Test Radiology reviewed: Image reviewed, Reports reviewed - Chest x-ray shows cardiomegaly with clear lung. CTA of the chest is unremarkable with chronic interstitial findings, no infiltrates, no pulmonary edema, no pulmonary embolus. - EKG Interpretation by Mi EKG shows normal: Rollins, Intervals, QRS Complexes, ST-T Waves Rate: Normal - 91 Rhythm: A.Fib When compared to previous EKG there are: No significant change <GUSTABO BRIGHT - Last Filed: 06/06/17 20:01> - Re-evaluation Re-evalutation: 06/06/17 19:57 The patient's oxygen saturation is remained in the mid to upper 90s throughout the day. This is on 2 L nasal cannula which she is on chronically at home. Extensive workup including chest x-rays, lab work, and CT angios of the chest do not reveal an explanation for the shortness of breath she felt prior to coming to the emergency room. She will be discharged home to continue her regular medications and elevate her feet to improve her peripheral edema problem. (GUSTABO BRIGHT) - Vital Signs Vital signs: Temp Pulse Resp BP Pulse Ox 98.3 F 78 22 H 129/78 H 96 06/06/17 17:58 06/06/17 13:03 06/06/17 19:01 06/06/17 19:01 06/06/17 19:00 - Laboratory Laboratory results interpreted by me: 06/06/17 06/06/17 06/06/17 13:30 13:30 13:30 Hgb 10.8 L Hct 35.1 L MCH 26.5 L MCHC 30.8 L RDW 19.1 H D-Dimer 3.63 H Chloride Carbon Dioxide BUN Est GFR (Non-Af Amer) Direct Bilirubin NT-Pro-B Natriuret Pep 2620 H Urine Urobilinogen 06/06/17 06/06/17 15:18 15:30 Hgb Hct MCH MCHC RDW D-Dimer Chloride 96 L Carbon Dioxide 37 H BUN 28 H Est GFR (Non-Af Amer) 59 L Direct Bilirubin 0.5 H NT-Pro-B Natriuret Pep Urine Urobilinogen 2.0 H Discharge <LAURTIA ALEXANDRE - Last Filed: 06/06/17 14:28> <GUSTABO BRIGHT - Last Filed: 06/06/17 20:01> - Discharge Clinical Impression: Shortness of breath, Peripheral edema COPD (chronic obstructive pulmonary disease) Qualifiers: COPD type: unspecified COPD Qualified Code(s): J44.9 - Chronic obstructive pulmonary disease, unspecified Dyspnea Qualifiers: Dyspnea type: shortness of breath Qualified Code(s): R06.02 - Shortness of breath; R06.00 - Dyspnea, unspecified; R06.01 - Orthopnea Condition: Stable Disposition: HOME, SELF-CARE Additional Instructions: Dyspnea, Nonspecific: You were evaluated for shortness of breath, or dyspnea. Dyspnea has many causes, and some are more serious than others. Sometimes it's impossible to diagnose the cause of dyspnea with the tests that are available on an emergency basis. Based on our evaluation today, you do not need hospitalization now. We found no evidence of pneumonia, collapsed lung, blood clots in the lung, tumors , or heart failure. Causes of non-specific dyspnea can include asthma or bronchospasm, hyperventilation, emotional distress, heart disease, emphysema, fibrosis of the lung, and stiffness of the chest wall. In healthy individuals with a single episode, it's sometimes reasonable to do nothing but wait to see if the problem occurs again. Additional tests used to evaluate dyspnea can include cardiac stress testing, echocardiography, pulmonary function testing, CAT scan of the chest, bronchoscopy or pulmonary biopsy. Return if shortness of breath persists or worsens, or if you develop chest pain, fever, cough, confusion, or fainting. //////////////////////////////////////////////////////////////////////////////// //////////////////////////////////////////////////////////////////////////////// ////////////////// No explanation for your episode of shortness of breath this morning could be found during your lengthy emergency room stay and evaluation. Your oxygen saturation is remained in a normal range the entire day. Your lungs sounded quite clear on exam. Chest x-ray and CT scan of your chest do not show any new abnormalities or other explanation for your symptoms. You should continue your regular medications at home. Elevate your feet all the time to help reduce the edema. Follow-up with your doctor tomorrow for recheck if not feeling better. RETURN TO THE EMERGENCY ROOM IF ANY NEW OR WORSENING SYMPTOMS. Referrals: KESHAV SEWELL MD [COMMUNITY BASED STAFF] - Follow up in 3-5 days Scribe Attestation: 06/06/17 20:01 I personally performed the services described in the documentation, reviewed and edited the documentation which was dictated to the scribe in my presence, and it accurately records my words and actions. (GUSTABO BRIGHT) Scribe Documentation - Scribe Written by Lisbethe:: Kim Warren, 06/06/2017 1440 acting as scribe for :: Ruel <LAURITA ALEXANDRE - Last Filed: 06/06/17 14:28>
[2017-06-06 14:47] LABS: ABSOLUTE EOSINOPHILS # (AUTO) 0.1 10^3/uL (0.0-0.6); ABSOLUTE LYMPHOCYTES (AUTO) 1.1 10^3/uL (0.5-4.7); ABSOLUTE MONOCYTES (AUTO) 0.5 10^3/uL (0.1-1.4); ABSOLUTE NEUT (AUTO) 4.9 10^3/uL (1.7-8.2); BASOPHILS % (AUTO) 0.5 % (0-2); EOSINOPHILS % (AUTO) 1.2 % (0-6); HEMATOCRIT 35.1 % (36.0-47.0); HEMOGLOBIN 10.8 g/dL (12.0-15.5); HGB HCT DIFFERENCE -2.7; LYMPHOCYTES % (AUTO) 16.1 % (13-45); MEAN CORPUSCULAR HEMOGLOBIN 26.5 pg (27.0-33.4); MEAN CORPUSCULAR HGB CONC 30.8 g/dL (32.0-36.0); MEAN CORPUSCULAR VOLUME 86 fl (80-97); MONOCYTES % (AUTO) 7.5 % (3-13); RED BLOOD COUNT 4.08 10^6/uL (3.72-5.28); RED CELL DISTRIBUTION WIDTH 19.1 % (11.5-14.0); SEGMENTED NEUTROPHILS % (AUTO) 74.7 % (42-78); WHITE BLOOD COUNT 6.6 10^3/uL (4.0-10.5)
--- NOTE | 2017-06-06 15:04 | RADIOLOGY REPORT (SQ) ---
EXAM DESCRIPTION: CHEST SINGLE VIEW COMPLETED DATE/TIME: 06/06/2017 2:49 pm REASON FOR STUDY: SOB, PMH COPD, CHF COMPARISON: 05/21/2017 NUMBER OF VIEWS: One view. TECHNIQUE: Single frontal radiographic view of the chest acquired. LIMITATIONS: Detail limited by patient body habitus. FINDINGS: LUNGS AND PLEURA: Lungs generally clear. No pleural effusion or confluent infiltrate. MEDIASTINUM AND HILAR STRUCTURES: Stable. HEART AND VASCULAR STRUCTURES: Cardiomegaly stable. No overt CHF on the current study. BONES: Limited evaluation. HARDWARE: None in the chest. OTHER: No other significant finding. IMPRESSION: Limited filming. Cardiomegaly. Lungs generally clear. TECHNICAL DOCUMENTATION: JOB ID: [id number] [employer]- All Rights Reserved
[2017-06-06 15:21] LABS: TROPONIN I 0.013 ng/mL
[2017-06-06] MEDS ORDERED: IPRATROPIUM/ALBUTEROL 0.5-2.5 MG/3 ML AMPUL NEB ONE (15:36)
[2017-06-06 15:54] LABS: APPEARANCE,URINE CLEAR; BILIRUBIN,URINE NEGATIVE (NEGATIVE); GLUCOSE, URINE NEGATIVE (NEGATIVE); KETONES,URINE NEGATIVE (NEGATIVE); LEUKOCYTE ESTERASE,URINE NEGATIVE (NEGATIVE); NITRITE,URINE NEGATIVE (NEGATIVE); PROTEIN,URINE NEGATIVE (NEGATIVE); URINE SPECIFIC GRAVITY 1.012
[2017-06-06 16:32] LABS: ALANINE AMINOTRANSFERASE 33 U/L (9-52); ALBUMIN 3.6 g/dL (3.5-5.0); ALKALINE PHOSPHATASE 80 U/L (38-126); ANION GAP 9 (5-19); ASPARTATE AMINO TRANSFERASE 24 U/L (14-36); BILIRUBIN,DIRECT 0.5 mg/dL (0.0-0.4); BILIRUBIN,TOTAL 0.8 mg/dL (0.2-1.3); BLOOD UREA NITROGEN 28 mg/dL (7-20); CALCIUM 8.9 mg/dL (8.4-10.2); CARBON DIOXIDE 37 mmol/L (22-30); CHLORIDE 96 mmol/L (98-107); CREATINE KINASE 30 U/L (30-135); CREATININE RESULT 0.91 mg/dL (0.52-1.25); GLUCOSE 108 mg/dL (75-110); MAGNESIUM 2.2 mg/dL (1.6-2.3); POTASSIUM 4.1 mmol/L (3.6-5.0); SODIUM 141.8 mmol/L (137-145); TOTAL PROTEIN 6.9 g/dL (6.3-8.2)
[2017-06-06] MEDS ORDERED: FUROSEMIDE INJ/PF 100 MG/10 ML SDV IV ONE (17:00)
--- NOTE | 2017-06-06 18:59 | RADIOLOGY REPORT (SQ) ---
EXAM DESCRIPTION: CTA CHEST COMPLETED DATE/TIME: 06/06/2017 6:24 pm REASON FOR STUDY: HIGH DIMER, SOB COMPARISON: 05/11/2016 TECHNIQUE: CT scan of the chest performed using helical scanning technique with dynamic intravenous contrast injection. Images reviewed with lung, soft tissue and bone windows. Reconstructed coronal and sagittal MPR images reviewed. Additional 3 dimensional post-processing performed to develop Maximal Intensity Projection images (GA P). All images stored on PACS. All CT scanners at this facility use dose modulation, iterative reconstruction, and/or weight based d osing when appropriate to reduce radiation dose to as low as reasonably achievable (ALARA). [facility]: Dose Right [facility]: CareDose [facility]: Dose Right [facility]: Teradose 4D [facility]: TLM Com CONTRAST TYPE AND DOSE: contrast/concentration: Isovue 370.00 mg/ml; Total Contrast Delivered: 85.0 ml; Total Saline Delivered: 82.1 ml Contrast bolus optimized for the pulmonary arteries. Not diagnostic for the aorta. RENAL FUNCTION: GFR > 60. RADIATION DOSE: Up-to-date CT equipment and radiation dose reduction techniques were employed. CTDIv ol: 32.7 - 49.6 mGy. DLP: 1154 mGy-cm. . LIMITATIONS: None. FINDINGS: LUNGS AND PLEURA: No consolidation. Similar interstitial markings. No pneumothorax. No pleural effusions. AORTA AND GREAT VESSELS: Stable appearance. HEART: No pericardial effusion. PULMONARY ARTERIES: No emboli visualized in the main pulmonary arteries or the segmental branches. HILAR AND MEDIASTINAL STRUCTURES: Similar mediastinal adenopathy. HARDWARE: None in the chest. UPPER ABDOMEN: No acute findings. Limited exam. THYROID AND OTHER SOFT TISSUES: No masses. No adenopathy. BONES: No acute or significant finding. 3D MIPS: Confirm above findings. OTHER: No other significant finding. IMPRESSION: No emboli visualized in the main pulmonary arteries or the segmental branches. COMMENT: Quality ID # [id number]: Final reports with documentation of one or more dose reduction techniques (e.g., Automated exposure control, adjustment of the mA and/or kV according to patient size, use of iterative reconstruction technique) TECHNICAL DOCUMENTATION: JOB ID: [id number]- All Rights Reserved
[2017-06-06 20:13] VITALS: BP 116/57
--- NOTE | 2017-06-06 23:52 | EKG REPORT ---
SEVERITY:- ABNORMAL ECG - ATRIAL FIBRILLATION, V-RATE 71-122 : Confirmed by: Leyla Ragland 06-Jun-2017 23:50:55
== END 2017-06-06 20:20 | disposition home or self-care (01) ==
LOC: ER 12:56
DX: R06.01 Orthopnea (principal); R06.02 Shortness of breath; J44.9 Chronic obstructive pulmonary disease, unspecified; R60.9 Edema, unspecified; I50.9 Heart failure, unspecified; I48.91 Unspecified atrial fibrillation; I11.0 Hypertensive heart disease with heart failure; E66.01 Morbid (severe) obesity due to excess calories; Z99.81 Dependence on supplemental oxygen; Z90.710 Acquired absence of both cervix and uterus; Z96.653 Presence of artificial knee joint, bilateral
CPT/HCPCS: 93005; 94640; 99285; 96374; 36415; 87040; 82550; 83735; 85025; 87077; 80053; 81001; 84484; 87186; 85379; 83880; 71010; 71275; 93010; J1940; A9270; J7620

== ENCOUNTER 2017-07-27 11:14 | Inpatient (IN) | payer MEDICARE, MEDICAID ==
[2017-07-27] MEDS ORDERED: IPRATROPIUM/ALBUTEROL 0.5-2.5 MG/3 ML AMPUL NEB ONE (11:21)
[2017-07-27 11:34] LABS: ABSOLUTE EOSINOPHILS # (AUTO) 0.1 10^3/uL (0.0-0.6); ABSOLUTE LYMPHOCYTES (AUTO) 1.1 10^3/uL (0.5-4.7); ABSOLUTE MONOCYTES (AUTO) 0.3 10^3/uL (0.1-1.4); BASOPHILS % (AUTO) 0.8 % (0-2); HEMATOCRIT 28.9 % (36.0-47.0); HEMOGLOBIN 9.2 g/dL (12.0-15.5); HGB HCT DIFFERENCE -1.3; LYMPHOCYTES % (AUTO) 19.3 % (13-45); MEAN CORPUSCULAR HEMOGLOBIN 26.4 pg (27.0-33.4); MEAN CORPUSCULAR HGB CONC 31.7 g/dL (32.0-36.0); MEAN CORPUSCULAR VOLUME 83 fl (80-97); MONOCYTES % (AUTO) 5.7 % (3-13); RED BLOOD COUNT 3.47 10^6/uL (3.72-5.28); RED CELL DISTRIBUTION WIDTH 20.5 % (11.5-14.0); SEGMENTED NEUTROPHILS % (AUTO) 73.2 % (42-78); WHITE BLOOD COUNT 5.5 10^3/uL (4.0-10.5)
--- NOTE | 2017-07-27 11:52 | ER Document Report ---
ED Respiratory Problem - General Chief Complaint: COPD Exacerbation Stated Complaint: BREATHING DIFFICULTY Time Seen by Provider: 07/27/17 11:19 Mode of Arrival: Medic Information source: Patient, Emergency Med Personnel Notes: Patient is an 82-year-old female with COPD, A. fib, CHF who presents to the ER today for difficulty breathing starting this morning. Patient states that she has been having more shortness of breath recently, recently discharged from [facility] for rehabilitation, and on 3 L of oxygen at home. She was picked up by EMS this morning with an oxygen saturation of 81% on her 3 L of oxygen at home. She denies taking any doses of her albuterol inhaler this morning. She denies any fevers, chills. She admits to cough. Daughter also states that her blood pressure this morning was 89/46 and that she gives her 120 mg of Lasix every night as directed by on recent discharge from [facility]. Daughter states she thinks that this is too much Lasix but patient still has swollen legs. TRAVEL OUTSIDE OF THE [place] IN LAST 30 DAYS: No - Related Data Allergies/Adverse Reactions: JOEY Inhibitors Allergy (Intermediate, Verified 06/06/17 13:15) Angioneurotic Edema Past Medical History - General Information source: Patient - Social History Smoking Status: Former Smoker Family History: Reviewed & Not Pertinent - Past Medical History Cardiac Medical History: Reports: Hx Atrial Fibrillation, Hx Congestive Heart Failure - Systolic function "low normal", Hx Hypercholesterolemia, Hx Hypertension Denies: Hx DVT, Hx Pulmonary Embolism Pulmonary Medical History: Reports: Hx Asthma, Hx COPD, Hx Pneumonia Denies: Hx Sleep Apnea Neurological Medical History: Denies: Hx Seizures Endocrine Medical History: Reports: Hx Diabetes Mellitus Type 2. Denies: Hx Diabetes Mellitus Type 1, Hx Hyperthyroidism, Hx Hypothyroidism Malignancy Medical History: Reports: Hx Skin Cancer GI Medical History: Reports: Hx Gastroesophageal Reflux Disease. Denies: Hx Cirrhosis, Hx Hepatitis Musculoskeltal Medical History: Reports Hx Arthritis Psychiatric Medical History: Reports: Hx Depression Infectious Medical History: Denies: Hx Hepatitis Past Surgical History: Reports: Hx Cardiac Catheterization, Hx Hysterectomy, Hx Orthopedic Surgery - B/L knee replacement, Hx Vascular Surgery - Immunizations Hx Diphtheria, Pertussis, Tetanus Vaccination: No Hx Pneumococcal Vaccination: 10/08/14 Review of Systems - Review of Systems Constitutional: No symptoms reported EENT: No symptoms reported Cardiovascular: See HPI Respiratory: See HPI Gastrointestinal: No symptoms reported Genitourinary: No symptoms reported Female Genitourinary: No symptoms reported Musculoskeletal: No symptoms reported Skin: See HPI Hematologic/Lymphatic: No symptoms reported Neurological/Psychological: No symptoms reported Physical Exam - Vital signs Vitals: Temp Resp BP Pulse Ox 98.0 F 23 H 119/58 L 99 07/27/17 11:20 07/27/17 11:20 07/27/17 11:20 07/27/17 11:20 - Notes Notes: PHYSICAL EXAMINATION: GENERAL: In mild respiratory distress. HEAD: Atraumatic, normocephalic. EYES: Pupils equal round and reactive to light, extraocular movements intact, sclera anicteric, conjunctiva are normal. ENT: ear canals without erythema or foreign body, TMs pearly jarvis with good bony landmarks, nares patent, oropharynx clear without exudates. Moist mucous membranes. Airway patent NECK: Normal range of motion, supple without lymphadenopathy LUNGS: expiratory wheezes throughout, no rales or rhonchi. HEART: Regular rate and rhythm without murmurs EXTREMITIES: Normal range of motion, 1+ pitting edema with erythema to bilateral lower extremities. No cyanosis. NEUROLOGICAL: Cranial nerves grossly intact. Normal sensory/motor exams. PSYCH: Normal mood, normal affect. SKIN: Warm, Dry, normal turgor, see extremities above Course - Re-evaluation Re-evalutation: 07/27/17 13:20 Lab work is unremarkable today, chest x-ray reports no acute pneumonia or CHF exacerbation, patient is doing better after multiple breathing treatments and is on 3 L of oxygen here. She is in A. fib which she is chronically in. - Vital Signs Vital signs: Temp Pulse Resp BP Pulse Ox 98.0 F 21 H 125/75 99 07/27/17 11:20 07/27/17 12:01 07/27/17 12:01 07/27/17 11:20 - Laboratory Result Diagrams: 07/27/17 11:21 07/27/17 11:21 Laboratory results interpreted by me: 07/27/17 07/27/17 07/27/17 11:21 11:21 11:57 RBC 3.47 L Hgb 9.2 L Hct 28.9 L MCH 26.4 L MCHC 31.7 L RDW 20.5 H Carbon Dioxide 31 H BUN 24 H Est GFR (Non-Af Amer) 53 L Glucose 223 H Direct Bilirubin 0.5 H Urine Nitrite POSITIVE H Urine Urobilinogen 2.0 H Ur Leukocyte Esterase TRACE H Discharge - Discharge Clinical Impression: COPD exacerbation Congestive heart failure Qualifiers: Congestive heart failure type: unspecified congestive heart failure type Congestive heart failure chronicity: unspecified congestive heart failure chronicity Qualified Code(s): I50.9 - Heart failure, unspecified Condition: Stable Disposition: ADMITTED OBSERVATION Admitting Provider: Hospitalist Unit Admitted: Telemetry
[2017-07-27 12:01] LABS: ALANINE AMINOTRANSFERASE 28 U/L (9-52); ALBUMIN 3.5 g/dL (3.5-5.0); ALKALINE PHOSPHATASE 75 U/L (38-126); ANION GAP 13 (5-19); ASPARTATE AMINO TRANSFERASE 21 U/L (14-36); BILIRUBIN,DIRECT 0.5 mg/dL (0.0-0.4); BILIRUBIN,TOTAL 0.8 mg/dL (0.2-1.3); BLOOD UREA NITROGEN 24 mg/dL (7-20); CALCIUM 8.4 mg/dL (8.4-10.2); CARBON DIOXIDE 31 mmol/L (22-30); CHLORIDE 100 mmol/L (98-107); CREATINE KINASE 37 U/L (30-135); GLUCOSE 223 mg/dL (75-110); POTASSIUM 3.8 mmol/L (3.6-5.0); SODIUM 143.7 mmol/L (137-145); TOTAL PROTEIN 6.7 g/dL (6.3-8.2)
[2017-07-27 12:06] LABS: CREATINE KINASE MB 0.85 ng/mL (<4.55); TROPONIN I < 0.012 ng/mL
[2017-07-27 12:18] LABS: APPEARANCE,URINE CLEAR; BILIRUBIN,URINE NEGATIVE (NEGATIVE); GLUCOSE, URINE NEGATIVE (NEGATIVE); KETONES,URINE NEGATIVE (NEGATIVE); LEUKOCYTE ESTERASE,URINE TRACE (NEGATIVE); NITRITE,URINE POSITIVE (NEGATIVE); PROTEIN,URINE NEGATIVE (NEGATIVE)
--- NOTE | 2017-07-27 12:24 | EKG REPORT ---
SEVERITY:- ABNORMAL ECG - ATRIAL FIBRILLATION LOW VOLTAGE THROUGHOUT MINIMAL ST DEPRESSION, ANTERIOR LEADS : Confirmed by: Toshia Desai MD 27-Jul-2017 12:23:51
--- NOTE | 2017-07-27 12:24 | RADIOLOGY REPORT (SQ) ---
EXAM DESCRIPTION: CHEST SINGLE VIEW COMPLETED DATE/TIME: 07/27/2017 12:14 pm REASON FOR STUDY: jorge luis jalen COMPARISON: 06/06/2017 EXAM PARAMETERS: NUMBER OF VIEWS: One view. TECHNIQUE: Single frontal radiographic view of the chest acquired. RADIATION DOSE: NA LIMITATIONS: Study is limited somewhat due to the patient's body habitus. FINDINGS: LUNGS AND PLEURA: No opacities, masses or pneumothorax. No pleural effusion. MEDIASTINUM AND HILAR STRUCTURES: No masses. Contour normal. HEART AND VASCULAR STRUCTURES: The configuration of the heart and mediastinal structures is unchanged . There is some mild pulmonary vascular congestion unchanged from the previous study. BONES: No acute findings. HARDWARE: None in the chest. OTHER: No other significant finding. IMPRESSION: No significant interval change. No acute findings. Other findings as noted above TECHNICAL DOCUMENTATION: JOB ID: [id number]
[2017-07-27] MEDS ORDERED: CEFTRIAXONE 1 GM/D5W RTU 1 GM/50 ML RTUPB IV ONE (13:09)
[2017-07-27 13:28] LABS: VENOUS BLOOD BASE EXCESS 8.6 mmol/L; VENOUS BLOOD HCO3 35.9 mmol/L (20-32); VENOUS BLOOD PH 7.35 (7.30-7.42)
[2017-07-27 13:30] LABS: VENOUS BLOOD PCO2 66.4 mmHg (35-63)
[2017-07-27] MEDS ORDERED: SENNOSIDES/DOCUSATE 8.6-50 MG 1 EACH TABLET PO PRN ×2 (16:03→16:21)
[2017-07-27] MEDS ORDERED: ONDANSETRON HCL INJ/PF 4 MG/2 ML SDV IV PRN (16:05)
[2017-07-27] MEDS ORDERED: LEVALBUTEROL HCL NEB 1.25 MG/3 ML AMPUL NEB PRN (16:05)
[2017-07-27] MEDS ORDERED: ACETAMINOPHEN 325 MG TABLET PO PRN (16:05)
--- NOTE | 2017-07-27 16:21 | PDOC H&P ---
History of Present Illness Admission Date/PCP: 07/27/17 13:41 JADA WELSH Patient complains of: Shortness of breath on exertion History of Present Illness: RACHEL LAN is a 82 year old female, with history of COPD, diastolic CHF, chronic hypoxemic respiratory failure on 3 L nasal cannula oxygen, was brought to the emergency room because of shortness of breath on exertion and unable to do any activity even mild. Patient has chronic orthopnea with intermittent paroxysmal nocturnal dyspnea. Lower extremity was noted to be more swollen. Had episodes of diarrhea several days ago that resolved 2 days prior to admission. Patient was recently admitted at [place] for pneumonia and was sent to [place] for rehabilitation apparently discharged a few days ago. Patient reports that her shortness of breath on exertion never really improved. Today the patient could not even do any activity. The patient was brought to the emergency room for evaluation. Reportedly with some wheezing and given nebulizers and shortness of breath improved. The patient denies any sinus congestion or sore throat, likewise there is no coughing, no purulent expectoration reported. Denies any chest pain associated as well. Past Medical History Cardiac Medical History: Reports: Atrial Fibrillation, Congestive Heart Failure - Systolic function "low normal", Hyperlipidema, Hypertension Denies: DVT, Pulmonary Embolism Pulmonary Medical History: Reports: Asthma, Chronic Obstructive Pulmonary Disease (COPD), Pneumonia Denies: Sleep Apnea Neurological Medical History: Denies: Seizures Endocrine Medical History: Reports: Diabetes Mellitus Type 2 Denies: Diabetes Mellitus Type 1, Hyperthyroidism, Hypothyroidism Malignancy Medical History: Reports: Skin Cancer GI Medical History: Reports: Gastroesophageal Reflux Disease Denies: Cirrhosis, Hepatitis Musculoskeltal Medical History: Reports: Arthritis Psychiatric Medical History: Reports: Depression Hematology: Reports: Anemia Past Surgical History Past Surgical History: Reports: Cardiac Catheterization, Hysterectomy, Orthopedic Surgery - B/L knee replacement, Vascular Surgery Social History Information Source: Patient Smoking Status: Former Smoker Frequency of Alcohol Use: None Hx Recreational Drug Use: No Drugs: None Hx Prescription Drug Abuse: No - Advance Directive Resuscitation Status: Full Code Family History Family History: CAD, DM, Hypertension Parental Family History Reviewed: Yes Children Family History Reviewed: Yes Sibling(s) Family History Reviewed.: Yes Medication/Allergy Home Medications: Albuterol Sulfate [Ventolin Hfa] 2 puff IH Q4HP PRN 05/21/17 Apixaban [Eliquis] 5 mg PO Q12 08/14/17 Atorvastatin Calcium [Lipitor 40 mg Tablet] 40 mg PO DAILY 05/21/17 Furosemide [Lasix] 40 mg PO Q12 05/21/17 Losartan Potassium [Cozaar 25 mg Tablet] 25 mg PO Q12 05/21/17 Metformin HCl [Glucophage] 500 mg PO QAM 05/21/17 Metoprolol Succinate [Toprol Xl 25 mg Tab.sr] 25 mg PO DAILY 05/21/17 Omeprazole 40 mg PO DAILY 05/21/17 Paroxetine HCl [Paxil] 20 mg PO DAILY 05/21/17 Ranitidine HCl [Zantac] 300 mg PO QHS 05/21/17 Sennosides/Docusate Sodium [Senna-S Tablet] 2 tab PO HSP PRN 07/27/17 Allergies/Adverse Reactions: JOEY Inhibitors Allergy (Intermediate, Verified 06/06/17 13:15) Angioneurotic Edema Review of Systems Constitutional: PRESENT: weakness - Generalized, weight gain - Unquantified. ABSENT: chills, fever(s), headache(s), weight loss Eyes: ABSENT: visual disturbances Ears: ABSENT: hearing changes Nose, Mouth, and Throat: ABSENT: mouth pain, sore throat, vertigo Cardiovascular: PRESENT: dyspnea on exertion, edema - Chronic on both lower extremity but worse for the past several days, orthropnea - Chronic. ABSENT: chest pain, palpitations Respiratory: PRESENT: dyspnea. ABSENT: cough, hemoptysis, sputum Gastrointestinal: ABSENT: abdominal pain, bloating, constipation, diarrhea, heartburn, hematemesis, hematochezia, melena, nausea, vomiting Genitourinary: ABSENT: difficulty urinating, dysuria, hematuria Musculoskeletal: ABSENT: joint swelling Integumentary: ABSENT: pruritus, rash, wounds Neurological: ABSENT: abnormal gait, abnormal speech, confusion, dizziness, focal weakness, syncope, tremor(s), vertigo Psychiatric: ABSENT: anxiety, depression, homidical ideation, suicidal ideation Endocrine: ABSENT: cold intolerance, heat intolerance, polydipsia, polyphagia, polyuria Hematologic/Lymphatic: ABSENT: easy bleeding, easy bruising Physical Exam Vital Signs: Temp Pulse Resp BP Pulse Ox 98.0 F 22 H 103/51 L 96 07/27/17 11:20 07/27/17 14:01 07/27/17 14:01 07/27/17 15:38 General appearance: PRESENT: no acute distress, morbidly obese Head exam: PRESENT: atraumatic, normocephalic Eye exam: PRESENT: conjunctiva pink, EOMI, PERRLA. ABSENT: scleral icterus Ear exam: PRESENT: normal external ear exam. ABSENT: drainage Mouth exam: PRESENT: moist, neck supple, tongue midline Throat exam: ABSENT: post pharyngeal erythema, tonsillar erythema Neck exam: ABSENT: carotid bruit, JVD, lymphadenopathy, thyromegaly Respiratory exam: PRESENT: clear to auscultation allyn - Anteriorly, decreased breath sounds - Posteriorly, rhonchi - Few posteriorly bilateral on the lower lung lipscomb, wheezes - Minimal posteriorly on the lower lung lipscomb. ABSENT: rales Cardiovascular exam: PRESENT: RRR. ABSENT: diastolic murmur, rubs, systolic murmur Pulses: PRESENT: normal dorsalis pedis pul Vascular exam: PRESENT: normal capillary refill GI/Abdominal exam: PRESENT: hypoactive bowel sounds, soft. ABSENT: distended - Obese, guarding, mass - Exam is limited due to increased abdominal girth, organolmegaly - Exam is limited due to increased abdominal girth, rebound, tenderness Rectal exam: PRESENT: deferred Extremities exam: PRESENT: full ROM, +2 edema. ABSENT: calf tenderness, clubbing Neurological exam: PRESENT: alert, awake, oriented to person, oriented to place , oriented to time, oriented to situation Psychiatric exam: PRESENT: appropriate affect, normal mood. ABSENT: homicidal ideation, suicidal ideation Skin exam: PRESENT: dry, erythema - Both lower extremities but equal, intact, warm. ABSENT: cyanosis Results Impressions: Chest X-Ray 07/27/17 11:21 IMPRESSION: No significant interval change. No acute findings. Other findings as noted above Assessment & Plan - Diagnosis (1) COPD exacerbation Is this a current diagnosis for this admission?: Yes (2) Chronic hypoxemic respiratory failure Is this a current diagnosis for this admission?: Yes (3) Congestive heart failure Qualifiers: Congestive heart failure type: diastolic Congestive heart failure chronicity: chronic Qualified Code(s): I50.32 - Chronic diastolic (congestive ) heart failure Is this a current diagnosis for this admission?: Yes (4) GERD (gastroesophageal reflux disease) Qualifiers: Esophagitis presence: without esophagitis Qualified Code(s): K21.9 - Gastro -esophageal reflux disease without esophagitis Is this a current diagnosis for this admission?: Yes (5) Morbid obesity with alveolar hypoventilation Is this a current diagnosis for this admission?: Yes (6) CKD (chronic kidney disease), stage III Is this a current diagnosis for this admission?: Yes (7) Chronic atrial fibrillation Is this a current diagnosis for this admission?: Yes (8) Diabetes mellitus type 2 in obese Is this a current diagnosis for this admission?: Yes (9) HLD (hyperlipidemia) Qualifiers: Hyperlipidemia type: unspecified Qualified Code(s): E78.5 - Hyperlipidemia , unspecified Is this a current diagnosis for this admission?: Yes (10) Depression Qualifiers: Depression Type: unspecified Qualified Code(s): F32.9 - Major depressive disorder, single episode, unspecified Is this a current diagnosis for this admission?: Yes - Time Time Spent: 50 to 70 Minutes Within: within 72 hours - Inpatient Certification Based on my medical assessment, after consideration of the patient's comorbidities, presenting symptoms, or acuity I expect that the services needed warrant INPATIENT care.: Yes I certify that my determination is in accordance with my understanding of Medicare's requirements for reasonable and necessary INPATIENT services [42 CFR 412.3e].: Yes Medical Necessity: Significant Comorbidiites Make Outpatient Treatment Too Risky , Need Close Monitoring Due to Risk of Patient Decompensation, Need for Nebulizer Therapy and Monitoring of Response, Risk of Complication if Not Cared For in Hospital Post Hospital Care: D/C String Laster Documentation - Plan Summary Plan Summary: Patient will be admitted to telemetry. We will begin intravenous steroids and scheduled bronchodilators. In the meantime I will also put the patient on intravenous diuretics. We will continue the patient's beta-royal. We will check a brain natruretic peptide. We will likewise check TSH and free T4. Patient is already on full anticoagulation. We will continue the patient's home oxygen. Sliding scale insulin will also be added for blood pressure control in anticipation for hyperglycemia from steroids. Further testing depends on initial evaluation as outlined above.
[2017-07-27] MEDS ORDERED: FUROSEMIDE INJ/PF 40 MG/4 ML SDV IV ONE (17:00)
[2017-07-27] MEDS ORDERED: PAROXETINE HCL 20 MG TABLET PO ONE (17:00)
[2017-07-27] MEDS ORDERED: INFLUENZA ADLT QUAD (36MOS+) 2017-18 VAC 0.5 ML SYR IM PRN (18:47)
[2017-07-27] MEDS: DOCUSATE SODIUM 100 MG CAPSULE PO SCH (18:56)
[2017-07-27] MEDS: IPRATROPIUM BROMIDE 0.02% NEB 0.5 MG/2.5 ML AMPUL NEB SCH (20:17)
[2017-07-27] MEDS: LEVALBUTEROL HCL NEB 1.25 MG/3 ML AMPUL NEB SCH (20:17)
[2017-07-27 21:28] LABS: THYROID STIMULATING HORMONE 1.26 uIU/mL (0.47-4.68)
[2017-07-27] MEDS ORDERED: LOSARTAN POTASSIUM 25 MG TABLET PO SCH (22:00)
[2017-07-27] MEDS: METHYLPREDNISOLONE INJ 125 MG/2 ML SDV IV SCH (22:28)
[2017-07-27] MEDS: APIXABAN 5 MG TABLET PO SCH (22:28)
[2017-07-28] MEDS: IPRATROPIUM BROMIDE 0.02% NEB 0.5 MG/2.5 ML AMPUL NEB SCH ×4 (02:09→20:10)
[2017-07-28] MEDS: LEVALBUTEROL HCL NEB 1.25 MG/3 ML AMPUL NEB SCH ×4 (02:09→20:10)
[2017-07-28] MEDS: LANSOPRAZOLE 30 MG TAB.RAP.DR PO SCH ×2 (05:53→11:27)
[2017-07-28 05:55] LABS: ANION GAP 12 (5-19); BLOOD UREA NITROGEN 22 mg/dL (7-20); CALCIUM 8.8 mg/dL (8.4-10.2); CARBON DIOXIDE 31 mmol/L (22-30); CHLORIDE 101 mmol/L (98-107); CREATININE RESULT 0.86 mg/dL (0.52-1.25); GLUCOSE 196 mg/dL (75-110); POTASSIUM 4.2 mmol/L (3.6-5.0); SODIUM 143.5 mmol/L (137-145)
[2017-07-28] MEDS: METHYLPREDNISOLONE INJ 125 MG/2 ML SDV IV SCH (05:57)
--- NOTE | 2017-07-28 09:10 | PDOC PROGRESS REPORT ---
Subjective Progress Note for:: 07/28/17 Subjective:: Patient's breathing is better. Lower extremity edema slightly improved. Dyspnea on exertion still persist. No chest pain nausea or vomiting. Denies having diarrhea. Physical Exam Vital Signs: Temp Pulse Resp BP Pulse Ox 97.8 F 112 H 18 132/78 H 94 07/28/17 07:35 07/28/17 07:35 07/28/17 07:35 07/28/17 07:35 07/28/17 07:35 Intake & Output 07/27/17 07/28/17 07/29/17 06:59 06:59 06:59 Intake Total 0 Balance 0 Weight 120.5 kg General appearance: PRESENT: no acute distress, morbidly obese Head exam: PRESENT: normocephalic Eye exam: PRESENT: EOMI Mouth exam: PRESENT: moist, neck supple Neck exam: ABSENT: JVD Respiratory exam: PRESENT: decreased breath sounds. ABSENT: rhonchi, wheezes Cardiovascular exam: PRESENT: irregular rhythm. ABSENT: gallop GI/Abdominal exam: PRESENT: soft. ABSENT: distended - Obese Extremities exam: PRESENT: +2 edema Neurological exam: PRESENT: alert, awake Skin exam: PRESENT: dry, warm. ABSENT: cyanosis Results Laboratory Results: 07/28/17 04:02 07/28/17 04:02 Sodium 143.5 Potassium 4.2 Chloride 101 Carbon Dioxide 31 H Anion Gap 12 BUN 22 H Creatinine 0.86 Est GFR ( Amer) > 60 Est GFR (Non-Af Amer) > 60 Glucose 196 H Calcium 8.8 07/27/17 16:45 NT-Pro-B Natriuret Pep 1470 H Impressions: Chest X-Ray 07/27/17 11:21 IMPRESSION: No significant interval change. No acute findings. Other findings as noted above Assessment & Plan - Diagnosis (1) COPD exacerbation Is this a current diagnosis for this admission?: Yes (2) Chronic hypoxemic respiratory failure Is this a current diagnosis for this admission?: Yes (3) Congestive heart failure Qualifiers: Congestive heart failure type: diastolic Congestive heart failure chronicity: chronic Qualified Code(s): I50.32 - Chronic diastolic (congestive ) heart failure Is this a current diagnosis for this admission?: Yes (4) GERD (gastroesophageal reflux disease) Qualifiers: Esophagitis presence: without esophagitis Qualified Code(s): K21.9 - Gastro -esophageal reflux disease without esophagitis Is this a current diagnosis for this admission?: Yes (5) Morbid obesity with alveolar hypoventilation Is this a current diagnosis for this admission?: Yes (6) CKD (chronic kidney disease), stage III Is this a current diagnosis for this admission?: Yes (7) Chronic atrial fibrillation Is this a current diagnosis for this admission?: Yes (8) Diabetes mellitus type 2 in obese Is this a current diagnosis for this admission?: Yes (9) HLD (hyperlipidemia) Qualifiers: Hyperlipidemia type: unspecified Qualified Code(s): E78.5 - Hyperlipidemia , unspecified Is this a current diagnosis for this admission?: Yes (10) Depression Qualifiers: Depression Type: unspecified Qualified Code(s): F32.9 - Major depressive disorder, single episode, unspecified Is this a current diagnosis for this admission?: Yes - Time Time Spent with patient: 25-34 minutes - Plan Summary Plan Summary: Continue bronchodilators. Decision to oral steroids. Begin physical therapy. Begin Cardizem orally. We will try to decrease ARB dose to avoid hypotension.
[2017-07-28] MEDS ORDERED: PAROXETINE HCL 20 MG PO SCH (10:00)
[2017-07-28] MEDS: METOPROLOL SUCCINATE 25 MG TAB.SR.24H PO SCH (11:25)
[2017-07-28] MEDS: PAROXETINE HCL 20 MG TABLET PO SCH (11:26)
[2017-07-28] MEDS: METFORMIN HCL 500 MG TABLET PO SCH (11:27)
[2017-07-28] MEDS: LOSARTAN POTASSIUM 25 MG TABLET PO SCH (11:27)
[2017-07-28] MEDS: DOCUSATE SODIUM 100 MG CAPSULE PO SCH ×2 (11:28→17:13)
[2017-07-28] MEDS: DILTIAZEM HCL 30 MG TABLET PO SCH ×2 (11:28→17:11)
[2017-07-28] MEDS: ATORVASTATIN CALCIUM 40 MG TABLET PO SCH (11:28)
[2017-07-28] MEDS: FUROSEMIDE INJ/PF 40 MG/4 ML SDV IV SCH (11:28)
[2017-07-28] MEDS: APIXABAN 5 MG TABLET PO SCH ×2 (11:29→21:19)
[2017-07-28] MEDS: PREDNISONE 20 MG TABLET PO SCH (11:29)
[2017-07-28] MEDS: OXYCODONE-ACETAMINOPHEN 5-325 MG TABLET PO PRN (20:14)
[2017-07-29] MEDS: DILTIAZEM HCL 30 MG TABLET PO SCH ×5 (00:27→21:01)
[2017-07-29] MEDS: LEVALBUTEROL HCL NEB 1.25 MG/3 ML AMPUL NEB SCH ×4 (02:07→20:35)
[2017-07-29] MEDS: IPRATROPIUM BROMIDE 0.02% NEB 0.5 MG/2.5 ML AMPUL NEB SCH ×4 (02:07→20:45)
[2017-07-29] MEDS: LANSOPRAZOLE 30 MG TAB.RAP.DR PO SCH ×2 (06:45→08:32)
[2017-07-29] MEDS: METFORMIN HCL 500 MG TABLET PO SCH (08:31)
[2017-07-29] MEDS: DOCUSATE SODIUM 100 MG CAPSULE PO SCH ×2 (09:15→17:30)
[2017-07-29] MEDS: METOPROLOL SUCCINATE 25 MG TAB.SR.24H PO SCH (09:15)
[2017-07-29] MEDS: FUROSEMIDE INJ/PF 40 MG/4 ML SDV IV SCH (09:15)
[2017-07-29] MEDS: PAROXETINE HCL 20 MG TABLET PO SCH (09:15)
[2017-07-29] MEDS: PREDNISONE 20 MG TABLET PO SCH (09:15)
[2017-07-29] MEDS: APIXABAN 5 MG TABLET PO SCH ×2 (09:15→21:01)
[2017-07-29] MEDS: LOSARTAN POTASSIUM 25 MG TABLET PO SCH (09:15)
[2017-07-29] MEDS: ATORVASTATIN CALCIUM 40 MG TABLET PO SCH (09:15)
--- NOTE | 2017-07-29 12:25 | PDOC CONSULTATION ---
Consultation Consult Date: 07/29/17 Attending physician:: CLAUDIA FARAH Consult reason:: Atrial fibrillation with rapid ventricular response History of Present Illness Admission Date/PCP: 07/27/17 16:05 JADA WELSH Patient complains of: Shortness of breath and pedal edema History of Present Illness: RACHEL LAN is a 82 year old female, with history of COPD, diastolic CHF, chronic hypoxemic respiratory failure on 3 L nasal cannula oxygen, was brought to the emergency room because of shortness of breath on exertion and unable to do any activity even mild. Patient has chronic orthopnea with intermittent paroxysmal nocturnal dyspnea. Lower extremity was noted to be more swollen. Had episodes of diarrhea several days ago that resolved 2 days prior to admission. Patient was recently admitted at [place] for pneumonia and was sent to [place] for rehabilitation apparently discharged a few days ago. Patient reports that her shortness of breath on exertion never really improved. Today the patient could not even do any activity. The patient was brought to the emergency room for evaluation. Reportedly with some wheezing and given nebulizers and shortness of breath improved. The patient denies any sinus congestion or sore throat, likewise there is no coughing, no purulent expectoration reported. Denies any chest pain associated as well. This history was reviewed and confirmed. Patient was noted to be in atrial fibrillation with rapid ventricular response. I was therefore asked to evaluate. Patient on repeated questioning denied any chest pain. Her main symptoms were shortness of breath, cough, increasing pedal edema, marked fatigue and tiredness. Past Medical History Cardiac Medical History: Reports: Atrial Fibrillation, Congestive Heart Failure - Systolic function "low normal", Hyperlipidema, Hypertension Denies: DVT, Pulmonary Embolism Pulmonary Medical History: Reports: Asthma, Chronic Obstructive Pulmonary Disease (COPD), Pneumonia Denies: Sleep Apnea Neurological Medical History: Denies: Seizures Endocrine Medical History: Reports: Diabetes Mellitus Type 2 Denies: Diabetes Mellitus Type 1, Hyperthyroidism, Hypothyroidism Malignancy Medical History: Reports: Skin Cancer GI Medical History: Reports: Gastroesophageal Reflux Disease Denies: Cirrhosis, Hepatitis Musculoskeltal Medical History: Reports: Arthritis Psychiatric Medical History: Reports: Depression Hematology: Reports: Anemia Past Surgical History Past Surgical History: Reports: Cardiac Catheterization, Hysterectomy, Orthopedic Surgery - B/L knee replacement, Vascular Surgery Social History Information Source: Patient Smoking Status: Former Smoker Frequency of Alcohol Use: None Hx Recreational Drug Use: No Drugs: None Hx Prescription Drug Abuse: No - Advance Directive Resuscitation Status: Full Code Surrogate healthcare decision maker:: Patient children are surrogate decision-maker Family History Family History: Hypertension Parental Family History Reviewed: Yes Children Family History Reviewed: Yes Sibling(s) Family History Reviewed.: Yes Medication/Allergy Home Medications: Albuterol Sulfate [Ventolin Hfa] 2 puff IH Q4HP PRN 05/21/17 Apixaban [Eliquis] 5 mg PO Q12 05/21/17 Atorvastatin Calcium [Lipitor 40 mg Tablet] 40 mg PO DAILY 05/21/17 Furosemide [Lasix] 40 mg PO Q12 05/21/17 Losartan Potassium [Cozaar 25 mg Tablet] 25 mg PO Q12 05/21/17 Metformin HCl [Glucophage] 500 mg PO QAM 05/21/17 Metoprolol Succinate [Toprol Xl 25 mg Tab.sr] 25 mg PO DAILY 05/21/17 Omeprazole 40 mg PO DAILY 05/21/17 Paroxetine HCl [Paxil] 20 mg PO DAILY 05/21/17 Ranitidine HCl [Zantac] 300 mg PO QHS 05/21/17 Sennosides/Docusate Sodium [Senna-S Tablet] 2 tab PO HSP PRN 07/27/17 Allergies/Adverse Reactions: JOEY Inhibitors Allergy (Intermediate, Verified 06/06/17 13:15) Angioneurotic Edema Review of Systems Review of Systems: Please see history of present illness and past medical history as wall. Constitutional: No fever or chills reported. Head : No recent chronic headaches, recent head injury. Eyes: No recent eye pain, diplopia, redness, discharge, acute visual changes. Ears: No recent chronic ear pain, acute hearing loss, ear discharge. Oral cavity: No recent ulcerations, bleeding, oral cavity discomfort. Neck: No recent acute neck pain reported. Hematologic: No recent easy bruising or bleeding or hematologic malignancy reported. Lymphatic: No recent lymphatic malignancy, chronic lymphadenopathy reported yet Cardiovascular system review: See history of present illness. Increased pedal edema. Respiratory system review: No recent chronic cough, hemoptysis, blood clots in the lungs reported. Significant shortness of breath on exertion. Recent admission with pneumonia. Gastrointestinal system review: Negative for any recent acute or chronic abdominal pain, hematemesis, melena, recent change in bowel habits. Genitourinary system review: No recent acute or chronic hematuria, flank pain, UTI etc. reported. Skin system review: Negative for any recent abnormal bruising, no rash, no pruritus reported. Neurologic: No prior history of strokes, mini strokes, seizure disorder. Psychologic: No history of major psychosis or major depression reported. Musculoskeletal: Minor aches and pains reported. No acute joint swelling reported. Generalized weakness reported. Endocrine: No recent polyuria, polydipsia, recent heat or cold intolerance. Physical Exam Vital Signs: Temp Pulse Resp BP Pulse Ox 97.3 F 116 H 19 117/57 L 100 07/29/17 11:18 07/29/17 11:18 07/29/17 11:18 07/29/17 11:18 07/29/17 11:18 Intake & Output 07/28/17 07/29/17 07/30/17 06:59 06:59 06:59 Intake Total 0 1015 Output Total 600 Balance 0 415 Weight 120.5 kg 123.6 kg Exam: GENERAL: well-nourished and in no acute distress. Alert and oriented x3 HEAD: Atraumatic, normocephalic. EYES: Pupils equal round and reactive to light, extraocular movements intact, sclera anicteric, conjunctiva are normal. ENT: TMs normal, nares patent, oropharynx clear without exudates. Moist mucous membranes. No oral ulcerations or bleeding gums noted NECK: supple without lymphadenopathy. Trachea is central. No cervical or axillary lymphadenopathy noted. Carotids are 2+, JVD 12-14 cm LUNGS: Respiration seems nonlabored, no significant accessory muscle action noted. Bibasilar fine crackles noted. No wheezes rales or rhonchi noted. No significant dullness noted on percussion. CHEST: Palpation of the chest wall shows no significant chest wall tenderness. No other significant abnormalities noted. 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 ABDOMEN: Soft, no significant tenderness appreciated, normoactive bowel sounds. No guarding, no rebound. No rigidity noted . No masses appreciated. EXTREMITIES: Pedal pulses are 1-2+, no calf tenderness noted. No clubbing or cyanosis. 2 + pedal edema noted NEUROLOGICAL: Focused neurological exam showed no significant neurologic deficit. Normal speech, no focal weakness appreciated. PSYCH: Normal mood, normal affect. Judgment and insight within normal limits. SKIN: No significant ecchymosis, rash, ulcerations or signs of pruritus noted. MUSCULOSKELETAL EXAM: No significant joint swelling noted. Results Laboratory Results: 07/28/17 04:02 07/27/17 16:45 NT-Pro-B Natriuret Pep 1470 H EKG Comments: Atrial fibrillation with rapid ventricular response. Minor nonspecific ST segment changes noted. Low voltage QRS noted throughout. Impressions: Chest X-Ray 07/27/17 11:21 IMPRESSION: No significant interval change. No acute findings. Other findings as noted above Status: Image reviewed by tn - Chest x-ray shows minor pulmonary venous congestion, possible small bilateral pleural effusion. Assessment & Plan - Diagnosis (1) Chronic respiratory failure with hypoxia and hypercapnia Is this a current diagnosis for this admission?: Yes (2) Atrial fibrillation with RVR Is this a current diagnosis for this admission?: Yes (3) Acute on chronic diastolic heart failure Is this a current diagnosis for this admission?: Yes (4) COPD (chronic obstructive pulmonary disease) Qualifiers: COPD type: unspecified COPD Qualified Code(s): J44.9 - Chronic obstructive pulmonary disease, unspecified Is this a current diagnosis for this admission?: Yes (5) Diabetes mellitus type 2 in obese Is this a current diagnosis for this admission?: Yes (6) HLD (hyperlipidemia) Qualifiers: Hyperlipidemia type: unspecified Qualified Code(s): E78.5 - Hyperlipidemia , unspecified Is this a current diagnosis for this admission?: Yes (7) Hypertension Qualifiers: Hypertension type: essential hypertension Qualified Code(s): I10 - Essential (primary) hypertension Is this a current diagnosis for this admission?: Yes - Notes Notes: Chronic respiratory failure with hypoxemia and hypercarbia: This is based on review of ABG. Continue oxygenation and noninvasive positive pressure ventilation on as needed basis. Patient may have underlying obesity hypoventilation syndrome on top of chronic COPD. Recommend good management of COPD. Atrial fibrillation with RVR: Recommend Cardizem for heart rate control. May consider digoxin if needed. May consider beta 1 selective beta-royal. Recommend continue chronic anticoagulation. Acute on chronic diastolic heart failure: Recommend intravenous diuretics, spironolactone therapy etc. COPD: Currently stable. Diabetes: Recommend good control of blood sugar but avoid any hyper or hypoglycemia. Hyperlipidemia: Recommend statin therapy. Hypertension: Currently is stable. Continue current regimen. - Time Time Spent: 30 to 50 Minutes - CODE STATUS was discussed, patient remains full code. Surrogate decision-maker unchanged. Multiple medical problems were addressed. More than 50% of the time spent coordinating care, discussing management plans with involved caregivers. Management plans discussed with involved personnels. Medical decision making was of moderate to high complexity , patient's has multiple comorbidities. Medications reviewed and adjusted accordingly: Yes
[2017-07-29] MEDS ORDERED: DEXTROSE 50%-WATER 25 GM/50 ML DISP.SYRIN IV PRN ×2 (16:51)
[2017-07-29] MEDS ORDERED: DEXTROSE 40% GEL 15 GM TUBE PO PRN ×2 (16:51)
[2017-07-29] MEDS ORDERED: GLUCAGON,HUMAN RECOMB 1 MG INJ IM PRN (16:51)
--- NOTE | 2017-07-29 16:56 | PDOC PROGRESS REPORT ---
Subjective Progress Note for:: 07/29/17 Subjective:: Overall slightly improved. Still with exertional dyspnea. Redness of breath is better. There is no wheezing. No nausea vomiting or diarrhea. No chills or fever. Physical Exam Vital Signs: Temp Pulse Resp BP Pulse Ox 97.8 F 98 18 109/59 L 96 07/29/17 16:06 07/29/17 16:06 07/29/17 16:06 07/29/17 16:06 07/29/17 16:06 Intake & Output 07/28/17 07/29/17 07/30/17 06:59 06:59 06:59 Intake Total 0 1015 860 Output Total 600 Balance 0 415 860 Weight 120.5 kg 123.6 kg General appearance: PRESENT: no acute distress, cooperative, obese Head exam: PRESENT: normocephalic Eye exam: PRESENT: EOMI Mouth exam: PRESENT: moist, neck supple Neck exam: ABSENT: JVD Respiratory exam: PRESENT: clear to auscultation allyn - Anteriorly, unlabored Cardiovascular exam: PRESENT: irregular rhythm. ABSENT: gallop GI/Abdominal exam: PRESENT: soft. ABSENT: distended - Obese Extremities exam: PRESENT: +1 edema Neurological exam: PRESENT: alert, awake, oriented to situation Skin exam: PRESENT: dry, warm. ABSENT: cyanosis Results Laboratory Results: 07/28/17 04:02 07/27/17 16:45 NT-Pro-B Natriuret Pep 1470 H Impressions: Chest X-Ray 07/27/17 11:21 IMPRESSION: No significant interval change. No acute findings. Other findings as noted above Assessment & Plan - Diagnosis (1) COPD exacerbation Is this a current diagnosis for this admission?: Yes (2) Chronic hypoxemic respiratory failure Is this a current diagnosis for this admission?: Yes (3) Congestive heart failure Qualifiers: Congestive heart failure type: diastolic Congestive heart failure chronicity: chronic Qualified Code(s): I50.32 - Chronic diastolic (congestive ) heart failure Is this a current diagnosis for this admission?: Yes (4) GERD (gastroesophageal reflux disease) Qualifiers: Esophagitis presence: without esophagitis Qualified Code(s): K21.9 - Gastro -esophageal reflux disease without esophagitis Is this a current diagnosis for this admission?: Yes (5) Morbid obesity with alveolar hypoventilation Is this a current diagnosis for this admission?: Yes (6) CKD (chronic kidney disease), stage III Is this a current diagnosis for this admission?: Yes (7) Chronic atrial fibrillation Is this a current diagnosis for this admission?: Yes (8) Diabetes mellitus type 2 in obese Is this a current diagnosis for this admission?: Yes (9) HLD (hyperlipidemia) Qualifiers: Hyperlipidemia type: unspecified Qualified Code(s): E78.5 - Hyperlipidemia , unspecified Is this a current diagnosis for this admission?: Yes (10) Depression Qualifiers: Depression Type: unspecified Qualified Code(s): F32.9 - Major depressive disorder, single episode, unspecified Is this a current diagnosis for this admission?: Yes - Time Time Spent with patient: 25-34 minutes - Plan Summary Plan Summary: We will begin antibiotic for UTI. Wean steroids and transitioned to oral. Continue bronchodilators. Continue Cardizem for rate control. Begin physical therapy. Continue supportive care. Consult cardiology for further evaluation and rate control of atrial fibrillation
[2017-07-29] MEDS: LEVOFLOXACIN 750 MG TABLET PO SCH (17:31)
[2017-07-29] MEDS: INSULIN REG, HUMAN 100 UNIT/ML 3 ML VIAL (PYX) SUBCUT PRN (17:31)
[2017-07-29] MEDS: OXYCODONE-ACETAMINOPHEN 5-325 MG TABLET PO PRN (21:01)
[2017-07-30] MEDS: LEVALBUTEROL HCL NEB 1.25 MG/3 ML AMPUL NEB SCH ×4 (02:23→20:41)
[2017-07-30] MEDS: IPRATROPIUM BROMIDE 0.02% NEB 0.5 MG/2.5 ML AMPUL NEB SCH ×4 (02:23→20:41)
[2017-07-30] MEDS: DILTIAZEM HCL 30 MG TABLET PO SCH ×5 (05:02→20:18)
[2017-07-30] MEDS: LANSOPRAZOLE 30 MG TAB.RAP.DR PO SCH ×2 (05:17→09:43)
[2017-07-30] MEDS: FUROSEMIDE INJ/PF 40 MG/4 ML SDV IV SCH (09:40)
[2017-07-30] MEDS: PREDNISONE 20 MG TABLET PO SCH (09:42)
[2017-07-30] MEDS: METOPROLOL SUCCINATE 25 MG TAB.SR.24H PO SCH (09:44)
[2017-07-30] MEDS: LOSARTAN POTASSIUM 25 MG TABLET PO SCH (09:44)
[2017-07-30] MEDS: ATORVASTATIN CALCIUM 40 MG TABLET PO SCH (09:44)
[2017-07-30] MEDS: PAROXETINE HCL 20 MG TABLET PO SCH (09:44)
[2017-07-30] MEDS: METFORMIN HCL 500 MG TABLET PO SCH (09:45)
[2017-07-30] MEDS: APIXABAN 5 MG TABLET PO SCH ×2 (09:45→21:58)
[2017-07-30] MEDS: DOCUSATE SODIUM 100 MG CAPSULE PO SCH ×2 (09:46→17:28)
[2017-07-30] MEDS: INSULIN REG, HUMAN 100 UNIT/ML 3 ML VIAL (PYX) SUBCUT PRN ×3 (11:52→21:58)
--- NOTE | 2017-07-30 14:52 | PDOC PROGRESS REPORT ---
Subjective Progress Note for:: 07/30/17 Subjective:: The patient is feeling better today. Lower extremity edema is less. Able to ambulate better with less fatigue. No chills or fever. No nausea or vomiting. No diarrhea. Physical Exam Vital Signs: Temp Pulse Resp BP Pulse Ox 98.1 F 106 H 17 120/67 99 07/30/17 11:08 07/30/17 14:02 07/30/17 14:02 07/30/17 11:08 07/30/17 11:08 Intake & Output 07/29/17 07/30/17 07/31/17 06:59 06:59 06:59 Intake Total 1015 1400 Output Total 600 Balance 415 1400 Weight 123.6 kg 123.6 kg General appearance: PRESENT: no acute distress, morbidly obese Head exam: PRESENT: normocephalic Eye exam: PRESENT: EOMI Mouth exam: PRESENT: moist, neck supple Neck exam: ABSENT: JVD Respiratory exam: PRESENT: decreased breath sounds. ABSENT: rhonchi, wheezes Cardiovascular exam: PRESENT: irregular rhythm, RRR. ABSENT: gallop GI/Abdominal exam: PRESENT: hypoactive bowel sounds, soft. ABSENT: distended - Obese Extremities exam: PRESENT: +1 edema Neurological exam: PRESENT: alert, awake, oriented to situation Skin exam: PRESENT: dry, warm. ABSENT: cyanosis Results Laboratory Results: 07/28/17 04:02 07/27/17 16:45 NT-Pro-B Natriuret Pep 1470 H Impressions: Chest X-Ray 07/27/17 11:21 IMPRESSION: No significant interval change. No acute findings. Other findings as noted above Assessment & Plan - Diagnosis (1) COPD exacerbation Is this a current diagnosis for this admission?: Yes (2) Chronic hypoxemic respiratory failure Is this a current diagnosis for this admission?: Yes (3) Congestive heart failure Qualifiers: Congestive heart failure type: diastolic Congestive heart failure chronicity: chronic Qualified Code(s): I50.32 - Chronic diastolic (congestive ) heart failure Is this a current diagnosis for this admission?: Yes (4) GERD (gastroesophageal reflux disease) Qualifiers: Esophagitis presence: without esophagitis Qualified Code(s): K21.9 - Gastro -esophageal reflux disease without esophagitis Is this a current diagnosis for this admission?: Yes (5) Morbid obesity with alveolar hypoventilation Is this a current diagnosis for this admission?: Yes (6) CKD (chronic kidney disease), stage III Is this a current diagnosis for this admission?: Yes (7) Chronic atrial fibrillation Is this a current diagnosis for this admission?: Yes (8) Diabetes mellitus type 2 in obese Is this a current diagnosis for this admission?: Yes (9) HLD (hyperlipidemia) Qualifiers: Hyperlipidemia type: unspecified Qualified Code(s): E78.5 - Hyperlipidemia , unspecified Is this a current diagnosis for this admission?: Yes (10) Depression Qualifiers: Depression Type: unspecified Qualified Code(s): F32.9 - Major depressive disorder, single episode, unspecified Is this a current diagnosis for this admission?: Yes - Time Time Spent with patient: 25-34 minutes - Plan Summary Plan Summary: Increase Cardizem and increase metoprolol. Transition to oral diuretics. Continue bronchodilators. Decrease steroids. Increase activity. Continue supportive care.
[2017-07-30] MEDS: LEVOFLOXACIN 750 MG TABLET PO SCH (17:27)
[2017-07-30] MEDS: OXYCODONE-ACETAMINOPHEN 5-325 MG TABLET PO PRN (20:17)
[2017-07-30] MEDS: FUROSEMIDE 40 MG TABLET PO SCH (21:58)
[2017-07-30] MEDS ORDERED: TRAZODONE HCL 50 MG TABLET PO ONE (23:00)
[2017-07-31] MEDS: IPRATROPIUM BROMIDE 0.02% NEB 0.5 MG/2.5 ML AMPUL NEB SCH ×4 (01:56→19:41)
[2017-07-31] MEDS: LEVALBUTEROL HCL NEB 1.25 MG/3 ML AMPUL NEB SCH ×4 (01:56→19:42)
[2017-07-31] MEDS: DILTIAZEM HCL 30 MG TABLET PO SCH ×4 (02:20→20:49)
[2017-07-31] MEDS: LANSOPRAZOLE 30 MG TAB.RAP.DR PO SCH ×2 (06:02→10:09)
[2017-07-31 06:27] LABS: HEMOGLOBIN 8.9 g/dL (12.0-15.5); HGB HCT DIFFERENCE -1.3; MEAN CORPUSCULAR HEMOGLOBIN 26.4 pg (27.0-33.4); MEAN CORPUSCULAR HGB CONC 31.9 g/dL (32.0-36.0); MEAN CORPUSCULAR VOLUME 83 fl (80-97); RED BLOOD COUNT 3.38 10^6/uL (3.72-5.28); RED CELL DISTRIBUTION WIDTH 20.2 % (11.5-14.0); WHITE BLOOD COUNT 8.4 10^3/uL (4.0-10.5)
[2017-07-31 06:49] LABS: ANION GAP 10 (5-19); BLOOD UREA NITROGEN 38 mg/dL (7-20); CALCIUM 8.8 mg/dL (8.4-10.2); CARBON DIOXIDE 32 mmol/L (22-30); CHLORIDE 98 mmol/L (98-107); CREATININE RESULT 0.84 mg/dL (0.52-1.25); GLUCOSE 142 mg/dL (75-110); POTASSIUM 4.1 mmol/L (3.6-5.0); SODIUM 139.9 mmol/L (137-145)
[2017-07-31] MEDS: METFORMIN HCL 500 MG TABLET PO SCH (10:10)
[2017-07-31] MEDS: APIXABAN 5 MG TABLET PO SCH ×2 (10:10→21:41)
[2017-07-31] MEDS: FUROSEMIDE 40 MG TABLET PO SCH ×2 (10:10→21:42)
[2017-07-31] MEDS: METOPROLOL SUCCINATE 25 MG TAB.SR.24H PO SCH (10:10)
[2017-07-31] MEDS: DOCUSATE SODIUM 100 MG CAPSULE PO SCH ×2 (10:11→18:08)
[2017-07-31] MEDS: ATORVASTATIN CALCIUM 40 MG TABLET PO SCH (10:11)
[2017-07-31] MEDS: PAROXETINE HCL 20 MG TABLET PO SCH (10:11)
[2017-07-31] MEDS: LOSARTAN POTASSIUM 25 MG TABLET PO SCH (10:11)
--- NOTE | 2017-07-31 10:11 | PDOC PROGRESS REPORT ---
Subjective Progress Note for:: 07/31/17 Subjective:: Pt had CP when she woke uo. Now resolved. Claims to be sleeping poorly. She denies any other significant complaints. A 12-lead EKG was ordered. Physical Exam Vital Signs: Temp Pulse Resp BP Pulse Ox 97.8 F 85 18 110/51 L 100 07/31/17 07:33 07/31/17 08:09 07/31/17 08:09 07/31/17 07:33 07/31/17 08:09 Intake & Output 07/30/17 07/31/17 08/01/17 06:59 06:59 06:59 Intake Total 1400 2304 Output Total 400 Balance 1400 1904 Weight 123.6 kg 123.5 kg Exam: GENERAL: well-nourished and in no acute distress. Alert and oriented x3 HEAD: Atraumatic, normocephalic. EYES: Pupils equal round and reactive to light, extraocular movements intact, sclera anicteric, conjunctiva are normal. ENT: TMs normal, nares patent, oropharynx clear without exudates. Moist mucous membranes. No oral ulcerations or bleeding gums noted NECK: supple without lymphadenopathy. Trachea is central. No cervical or axillary lymphadenopathy noted. Carotids are 2+, JVD 8 cm LUNGS: Respiration seems nonlabored, no significant accessory muscle action noted. Few bibasilar crackles and few wheezing noted. No significant dullness noted on percussion. CHEST: Palpation of the chest wall shows no significant chest wall tenderness. No other significant abnormalities noted. 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 ABDOMEN: Soft, no significant tenderness appreciated, normoactive bowel sounds. No guarding, no rebound. No rigidity noted . No masses appreciated. EXTREMITIES: Pedal pulses are 1-2+, no calf tenderness noted. No clubbing or cyanosis. 2 + pedal edema noted NEUROLOGICAL: Focused neurological exam showed no significant neurologic deficit. Normal speech, no focal weakness appreciated. PSYCH: Normal mood, normal affect. Judgment and insight within normal limits. SKIN: No significant ecchymosis, rash, ulcerations or signs of pruritus noted. MUSCULOSKELETAL EXAM: No significant joint swelling noted. Results Laboratory Results: 07/31/17 05:13 07/31/17 05:13 07/31/17 07/31/17 05:13 05:13 WBC 8.4 RBC 3.38 L Hgb 8.9 L Hct 28.0 L MCV 83 MCH 26.4 L MCHC 31.9 L RDW 20.2 H Plt Count 242 Sodium 139.9 Potassium 4.1 Chloride 98 Carbon Dioxide 32 H Anion Gap 10 BUN 38 H Creatinine 0.84 Est GFR ( Amer) > 60 Est GFR (Non-Af Amer) > 60 Glucose 142 H Calcium 8.8 07/27/17 16:45 NT-Pro-B Natriuret Pep 1470 H EKG Comments: Shows atrial fibrillation with controlled ventricular response Impressions: Chest X-Ray 07/27/17 11:21 IMPRESSION: No significant interval change. No acute findings. Other findings as noted above Assessment & Plan - Diagnosis (1) Chronic respiratory failure with hypoxia and hypercapnia Is this a current diagnosis for this admission?: Yes (2) Atrial fibrillation with RVR Is this a current diagnosis for this admission?: Yes (3) Acute on chronic diastolic heart failure Is this a current diagnosis for this admission?: Yes (4) COPD (chronic obstructive pulmonary disease) Qualifiers: COPD type: unspecified COPD Qualified Code(s): J44.9 - Chronic obstructive pulmonary disease, unspecified Is this a current diagnosis for this admission?: Yes (5) Diabetes mellitus type 2 in obese Is this a current diagnosis for this admission?: Yes (6) HLD (hyperlipidemia) Qualifiers: Hyperlipidemia type: unspecified Qualified Code(s): E78.5 - Hyperlipidemia , unspecified Is this a current diagnosis for this admission?: Yes (7) Hypertension Qualifiers: Hypertension type: essential hypertension Qualified Code(s): I10 - Essential (primary) hypertension Is this a current diagnosis for this admission?: Yes - Notes Notes: Check EKG for CP complaints. EKG reviewed showed minimal ST segment changes but unchanged from before. Chronic respiratory failure with hypoxemia and hypercarbia: Recommend good management of COPD. Also recommend intermittent positive pressure noninvasive ventilation. Atrial fibrillation with RVR: Heart rate currently well controlled on current dose of rate control agents. Currently on Cardizem plus beta-royal. Continue Eliquis for chronic anticoagulation. Acute on chronic diastolic heart failure: Recommend intravenous diuretics, spironolactone therapy etc. edema seems slightly improved. COPD: Currently stable. Diabetes: Recommend good control of blood sugar but avoid any hyper or hypoglycemia. Hyperlipidemia: Recommend statin therapy. Hypertension: Currently is stable. Continue current regimen.
[2017-07-31] MEDS: PREDNISONE 20 MG TABLET PO SCH (10:12)
[2017-07-31] MEDS: INSULIN REG, HUMAN 100 UNIT/ML 3 ML VIAL (PYX) SUBCUT PRN ×2 (11:21→16:02)
--- NOTE | 2017-07-31 14:27 | PDOC PROGRESS REPORT ---
Subjective Progress Note for:: 07/31/17 Subjective:: Complained of some sharp chest pain that occurred this morning when she woke up. Has resolved. Physical Exam Vital Signs: Temp Pulse Resp BP Pulse Ox 97.8 F 80 18 110/51 L 96 07/31/17 07:33 07/31/17 14:00 07/31/17 13:50 07/31/17 07:33 07/31/17 13:50 Intake & Output 07/30/17 07/31/17 08/01/17 06:59 06:59 06:59 Intake Total 1400 2304 Output Total 400 Balance 1400 1904 Weight 123.6 kg 123.5 kg General appearance: PRESENT: no acute distress Eye exam: PRESENT: conjunctiva pink Mouth exam: PRESENT: moist, tongue midline Neck exam: ABSENT: JVD Respiratory exam: PRESENT: clear to auscultation allyn. ABSENT: rales, rhonchi, wheezes Cardiovascular exam: PRESENT: RRR. ABSENT: diastolic murmur, rubs, systolic murmur GI/Abdominal exam: PRESENT: normal bowel sounds, soft. ABSENT: distended, guarding, mass, organolmegaly, rebound, tenderness Extremities exam: PRESENT: full ROM. ABSENT: calf tenderness, clubbing, pedal edema Results Laboratory Results: 07/31/17 05:13 07/31/17 05:13 07/31/17 07/31/17 05:13 05:13 WBC 8.4 RBC 3.38 L Hgb 8.9 L Hct 28.0 L MCV 83 MCH 26.4 L MCHC 31.9 L RDW 20.2 H Plt Count 242 Sodium 139.9 Potassium 4.1 Chloride 98 Carbon Dioxide 32 H Anion Gap 10 BUN 38 H Creatinine 0.84 Est GFR ( Amer) > 60 Est GFR (Non-Af Amer) > 60 Glucose 142 H Calcium 8.8 07/27/17 16:45 NT-Pro-B Natriuret Pep 1470 H Impressions: Chest X-Ray 07/27/17 11:21 IMPRESSION: No significant interval change. No acute findings. Other findings as noted above Assessment & Plan - Diagnosis (1) Chronic hypoxemic respiratory failure Is this a current diagnosis for this admission?: Yes Plan: Secondary to both congestive heart failure and COPD exacerbation. Slowly improving. (2) COPD exacerbation Is this a current diagnosis for this admission?: Yes Plan: Continue with steroids and nebulizers. (3) Congestive heart failure Qualifiers: Congestive heart failure type: diastolic Congestive heart failure chronicity: chronic Qualified Code(s): I50.32 - Chronic diastolic (congestive ) heart failure Is this a current diagnosis for this admission?: Yes (4) Depression Qualifiers: Depression Type: unspecified Qualified Code(s): F32.9 - Major depressive disorder, single episode, unspecified Is this a current diagnosis for this admission?: Yes (5) GERD (gastroesophageal reflux disease) Qualifiers: Esophagitis presence: without esophagitis Qualified Code(s): K21.9 - Gastro -esophageal reflux disease without esophagitis Is this a current diagnosis for this admission?: Yes (6) Hypertension Qualifiers: Hypertension type: essential hypertension Qualified Code(s): I10 - Essential (primary) hypertension Is this a current diagnosis for this admission?: Yes (7) Acute on chronic diastolic heart failure Is this a current diagnosis for this admission?: Yes Plan: Patient still has lower extremity edema but she reports that her breathing is doing better. Will continue with the Lasix. (8) CKD (chronic kidney disease), stage III Is this a current diagnosis for this admission?: Yes Plan: Creatinines in the normal range currently. (9) Chronic atrial fibrillation Is this a current diagnosis for this admission?: Yes (10) Diabetes mellitus type 2 in obese Is this a current diagnosis for this admission?: Yes Plan: Continue with sliding scale insulin. (11) Chest pain Qualifiers: Chest pain type: unspecified Qualified Code(s): R07.9 - Chest pain, unspecified Is this a current diagnosis for this admission?: Yes Plan: Pain this morning was atypical chest pain. Most likely not related to coronary disease. - Time Time Spent with patient: 25-34 minutes - Inpatient Certification Medical Necessity: Need Close Monitoring Due to Risk of Patient Decompensation
--- NOTE | 2017-07-31 16:33 | EKG REPORT ---
SEVERITY:- ABNORMAL ECG - ATRIAL FIBRILLATION, V-RATE 77-[address] DEPRESSION, ANTERIOR LEADS : Confirmed by: Leyla Ragland 31-Jul-2017 16:32:47
[2017-07-31] MEDS: LEVOFLOXACIN 750 MG TABLET PO SCH (18:08)
--- NOTE | 2017-07-31 21:09 | PDOC PROGRESS REPORT ---
Subjective Progress Note for:: 07/30/17 Subjective:: Patient seems to be doing better with gradual improvement. Pt is denying any chest arm or neck discomfort. Patient denying any PND, orthopnea. Patient denied any sustained palpitations, dizziness, syncope, near syncope. Patient denying any fever chills. Patient denying any other significant discomfort. Patient is maintaining chronic atrial fibrillation. Heart rate is better controlled. Review of systems: Rest review of systems negative. Medications: Medications have been reviewed. Physical Exam Vital Signs: Temp Pulse Resp BP Pulse Ox 98.0 F 115 H 20 109/55 L 96 07/30/17 15:14 07/30/17 15:14 07/30/17 15:14 07/30/17 15:14 07/30/17 15:14 Intake & Output 07/29/17 07/30/17 07/31/17 06:59 06:59 06:59 Intake Total 1015 1400 1864 Output Total 600 Balance 415 1400 1864 Weight 123.6 kg 123.6 kg Exam: GENERAL: well-nourished and in no acute distress. Alert and oriented x3 HEAD: Atraumatic, normocephalic. EYES: Pupils equal round and reactive to light, extraocular movements intact, sclera anicteric, conjunctiva are normal. ENT: TMs normal, nares patent, oropharynx clear without exudates. Moist mucous membranes. No oral ulcerations or bleeding gums noted NECK: supple without lymphadenopathy. Trachea is central. No cervical or axillary lymphadenopathy noted. Carotids are 2+, JVD 12-14 cm LUNGS: Respiration seems nonlabored, no significant accessory muscle action noted. Bibasilar fine crackles noted. No wheezes rales or rhonchi noted. No significant dullness noted on percussion. CHEST: Palpation of the chest wall shows no significant chest wall tenderness. No other significant abnormalities noted. 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 ABDOMEN: Soft, no significant tenderness appreciated, normoactive bowel sounds. No guarding, no rebound. No rigidity noted . No masses appreciated. EXTREMITIES: Pedal pulses are 1-2+, no calf tenderness noted. No clubbing or cyanosis. 2 + pedal edema noted NEUROLOGICAL: Focused neurological exam showed no significant neurologic deficit. Normal speech, no focal weakness appreciated. PSYCH: Normal mood, normal affect. Judgment and insight within normal limits. SKIN: No significant ecchymosis, rash, ulcerations or signs of pruritus noted. MUSCULOSKELETAL EXAM: No significant joint swelling noted. Results Laboratory Results: 07/28/17 04:02 07/27/17 16:45 NT-Pro-B Natriuret Pep 1470 H Impressions: Chest X-Ray 07/27/17 11:21 IMPRESSION: No significant interval change. No acute findings. Other findings as noted above Assessment & Plan - Diagnosis (1) Chronic respiratory failure with hypoxia and hypercapnia Is this a current diagnosis for this admission?: Yes (2) Atrial fibrillation with RVR Is this a current diagnosis for this admission?: Yes (3) Acute on chronic diastolic heart failure Is this a current diagnosis for this admission?: Yes (4) COPD (chronic obstructive pulmonary disease) Qualifiers: COPD type: unspecified COPD Qualified Code(s): J44.9 - Chronic obstructive pulmonary disease, unspecified Is this a current diagnosis for this admission?: Yes (5) Diabetes mellitus type 2 in obese Is this a current diagnosis for this admission?: Yes (6) HLD (hyperlipidemia) Qualifiers: Hyperlipidemia type: unspecified Qualified Code(s): E78.5 - Hyperlipidemia , unspecified Is this a current diagnosis for this admission?: Yes (7) Hypertension Qualifiers: Hypertension type: essential hypertension Qualified Code(s): I10 - Essential (primary) hypertension Is this a current diagnosis for this admission?: Yes - Notes Notes: Heart Rhytm stable afib. - Time Time with patient: 15-25 minutes - More than 50% of the time spent coordinating care, discussing management plans with involved caregivers. Management plans discussed with involved personnels. Medical decision making was of moderate to high complexity, patient's has multiple comorbidities. Medications reviewed and adjusted accordingly: Yes
[2017-07-31] MEDS: TRAZODONE HCL 50 MG TABLET PO SCH (21:42)
[2017-08-01] MEDS: IPRATROPIUM BROMIDE 0.02% NEB 0.5 MG/2.5 ML AMPUL NEB SCH ×4 (01:52→19:48)
[2017-08-01] MEDS: LEVALBUTEROL HCL NEB 1.25 MG/3 ML AMPUL NEB SCH ×4 (01:53→19:47)
[2017-08-01] MEDS: DILTIAZEM HCL 30 MG TABLET PO SCH ×4 (03:40→21:11)
[2017-08-01] MEDS: LANSOPRAZOLE 30 MG TAB.RAP.DR PO SCH ×2 (05:17→07:38)
[2017-08-01 06:50] LABS: ABSOLUTE LYMPHOCYTES (AUTO) 1.1 10^3/uL (0.5-4.7); ABSOLUTE MONOCYTES (AUTO) 0.5 10^3/uL (0.1-1.4); ABSOLUTE NEUT (AUTO) 4.7 10^3/uL (1.7-8.2); BASOPHILS % (AUTO) 0.2 % (0-2); HEMATOCRIT 28.6 % (36.0-47.0); HEMOGLOBIN 9.3 g/dL (12.0-15.5); HGB HCT DIFFERENCE -0.7; LYMPHOCYTES % (AUTO) 17.8 % (13-45); MEAN CORPUSCULAR HEMOGLOBIN 26.4 pg (27.0-33.4); MEAN CORPUSCULAR HGB CONC 32.4 g/dL (32.0-36.0); MEAN CORPUSCULAR VOLUME 82 fl (80-97); MONOCYTES % (AUTO) 7.6 % (3-13); RED BLOOD COUNT 3.51 10^6/uL (3.72-5.28); SEGMENTED NEUTROPHILS % (AUTO) 74.4 % (42-78); WHITE BLOOD COUNT 6.3 10^3/uL (4.0-10.5)
[2017-08-01 07:17] LABS: ANION GAP 10 (5-19); BLOOD UREA NITROGEN 32 mg/dL (7-20); CALCIUM 8.9 mg/dL (8.4-10.2); CARBON DIOXIDE 34 mmol/L (22-30); CHLORIDE 98 mmol/L (98-107); CREATININE RESULT 0.77 mg/dL (0.52-1.25); GLUCOSE 139 mg/dL (75-110); POTASSIUM 4.1 mmol/L (3.6-5.0); SODIUM 142.3 mmol/L (137-145)
[2017-08-01] MEDS: METFORMIN HCL 500 MG TABLET PO SCH (07:38)
[2017-08-01] MEDS: ATORVASTATIN CALCIUM 40 MG TABLET PO SCH (09:41)
[2017-08-01] MEDS: APIXABAN 5 MG TABLET PO SCH ×2 (09:41→21:10)
[2017-08-01] MEDS: DOCUSATE SODIUM 100 MG CAPSULE PO SCH ×2 (09:41→17:01)
[2017-08-01] MEDS: PAROXETINE HCL 20 MG TABLET PO SCH (09:42)
[2017-08-01] MEDS: PREDNISONE 20 MG TABLET PO SCH (09:42)
[2017-08-01] MEDS: METOPROLOL SUCCINATE 25 MG TAB.SR.24H PO SCH (09:42)
[2017-08-01] MEDS: FUROSEMIDE 40 MG TABLET PO SCH ×2 (09:42→21:11)
[2017-08-01] MEDS: LOSARTAN POTASSIUM 25 MG TABLET PO SCH (12:21)
--- NOTE | 2017-08-01 14:00 | PDOC PROGRESS REPORT ---
Subjective Progress Note for:: 08/01/17 Subjective:: Denies any chest pain but does report some shortness of breath. Physical Exam Vital Signs: Temp Pulse Resp BP Pulse Ox 97.6 F 106 H 18 103/50 L 94 08/01/17 11:45 08/01/17 11:45 08/01/17 11:45 08/01/17 11:45 08/01/17 11:45 Intake & Output 07/31/17 08/01/17 08/02/17 06:59 06:59 06:59 Intake Total 2304 2430 Output Total 400 1000 Balance 1904 1430 Weight 123.5 kg 123.5 kg General appearance: PRESENT: no acute distress Eye exam: PRESENT: conjunctiva pink. ABSENT: scleral icterus Mouth exam: PRESENT: moist, tongue midline Neck exam: ABSENT: JVD Respiratory exam: PRESENT: clear to auscultation allyn. ABSENT: rales, rhonchi, wheezes Cardiovascular exam: PRESENT: RRR. ABSENT: diastolic murmur, rubs, systolic murmur GI/Abdominal exam: PRESENT: normal bowel sounds, soft. ABSENT: distended, guarding, mass, organolmegaly, rebound, tenderness Extremities exam: ABSENT: calf tenderness, clubbing, pedal edema Neurological exam: PRESENT: alert, awake, oriented to person, oriented to place , oriented to time, oriented to situation, CN II-XII grossly intact. ABSENT: motor sensory deficit Psychiatric exam: PRESENT: appropriate affect Skin exam: PRESENT: dry, intact, warm. ABSENT: cyanosis, rash Results Laboratory Results: 08/01/17 05:53 08/01/17 05:53 08/01/17 08/01/17 05:53 05:53 WBC 6.3 RBC 3.51 L Hgb 9.3 L Hct 28.6 L MCV 82 MCH 26.4 L MCHC 32.4 RDW 20.0 H Plt Count 205 Seg Neutrophils % 74.4 Lymphocytes % 17.8 Monocytes % 7.6 Eosinophils % 0.0 Basophils % 0.2 Absolute Neutrophils 4.7 Absolute Lymphocytes 1.1 Absolute Monocytes 0.5 Absolute Eosinophils 0.0 Absolute Basophils 0.0 Sodium 142.3 Potassium 4.1 Chloride 98 Carbon Dioxide 34 H Anion Gap 10 BUN 32 H Creatinine 0.77 Est GFR ( Amer) > 60 Est GFR (Non-Af Amer) > 60 Glucose 139 H Calcium 8.9 07/27/17 16:45 NT-Pro-B Natriuret Pep 1470 H Impressions: Chest X-Ray 07/27/17 11:21 IMPRESSION: No significant interval change. No acute findings. Other findings as noted above Assessment & Plan - Diagnosis (1) Chronic hypoxemic respiratory failure Is this a current diagnosis for this admission?: Yes Plan: Secondary to both congestive heart failure and COPD exacerbation. Slowly improving. (2) COPD exacerbation Is this a current diagnosis for this admission?: Yes Plan: Continue with steroids and nebulizers. (3) Congestive heart failure Qualifiers: Congestive heart failure type: diastolic Congestive heart failure chronicity: chronic Qualified Code(s): I50.32 - Chronic diastolic (congestive ) heart failure Is this a current diagnosis for this admission?: Yes Plan: Continue with Lasix. (4) Depression Qualifiers: Depression Type: unspecified Qualified Code(s): F32.9 - Major depressive disorder, single episode, unspecified Is this a current diagnosis for this admission?: Yes (5) GERD (gastroesophageal reflux disease) Qualifiers: Esophagitis presence: without esophagitis Qualified Code(s): K21.9 - Gastro -esophageal reflux disease without esophagitis Is this a current diagnosis for this admission?: Yes (6) Hypertension Qualifiers: Hypertension type: essential hypertension Qualified Code(s): I10 - Essential (primary) hypertension Is this a current diagnosis for this admission?: Yes (7) Acute on chronic diastolic heart failure Is this a current diagnosis for this admission?: Yes Plan: Patient still has lower extremity edema but she reports that her breathing is doing better. Will continue with the Lasix. (8) CKD (chronic kidney disease), stage III Is this a current diagnosis for this admission?: Yes Plan: Creatinines in the normal range currently. (9) Chronic atrial fibrillation Is this a current diagnosis for this admission?: Yes (10) Diabetes mellitus type 2 in obese Is this a current diagnosis for this admission?: Yes Plan: Continue with sliding scale insulin. (11) Chest pain Qualifiers: Chest pain type: unspecified Qualified Code(s): R07.9 - Chest pain, unspecified Is this a current diagnosis for this admission?: Yes Plan: Resolved. - Time Time Spent with patient: 15-24 minutes - Inpatient Certification Medical Necessity: Need Close Monitoring Due to Risk of Patient Decompensation
[2017-08-01] MEDS: INSULIN REG, HUMAN 100 UNIT/ML 3 ML VIAL (PYX) SUBCUT PRN ×2 (17:01→21:19)
[2017-08-01] MEDS: LEVOFLOXACIN 750 MG TABLET PO SCH (17:01)
[2017-08-01] MEDS: TRAZODONE HCL 50 MG TABLET PO SCH (21:10)
--- NOTE | 2017-08-01 23:03 | PDOC PROGRESS REPORT ---
Subjective Progress Note for:: 08/01/17 Subjective:: Patient was seen on morning rounds. She had a good breakfast but was noted to be eating high salt snacks. Patient was advised against it. She told me she was just hungry therefore she was eating. Her grandson left her chips and popcorn. She denies any other significant complaints. A 12-lead EKG was ordered. Physical Exam Vital Signs: Temp Pulse Resp BP Pulse Ox 97.9 F 93 16 108/49 L 99 08/01/17 19:34 08/01/17 19:34 08/01/17 19:34 08/01/17 19:34 08/01/17 19:34 Intake & Output 07/31/17 08/01/17 08/02/17 06:59 06:59 06:59 Intake Total 2304 2430 280 Output Total 400 1000 300 Balance 1904 1430 -20 Weight 123.5 kg 123.5 kg Exam: GENERAL: well-nourished and in no acute distress. Alert and oriented x3 HEAD: Atraumatic, normocephalic. EYES: Pupils equal round and reactive to light, extraocular movements intact, sclera anicteric, conjunctiva are normal. ENT: TMs normal, nares patent, oropharynx clear without exudates. Moist mucous membranes. No oral ulcerations or bleeding gums noted NECK: supple without lymphadenopathy. Trachea is central. No cervical or axillary lymphadenopathy noted. Carotids are 2+, JVD 8 cm LUNGS: Respiration seems nonlabored, no significant accessory muscle action noted. Breath sounds clear to auscultation bilaterally and equal noted. No wheezes rales or rhonchi noted. No significant dullness noted on percussion. CHEST: Palpation of the chest wall shows no significant chest wall tenderness. No other significant abnormalities noted. 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 ABDOMEN: Soft, no significant tenderness appreciated, normoactive bowel sounds. No guarding, no rebound. No rigidity noted . No masses appreciated. EXTREMITIES: Pedal pulses are 1-2+, no calf tenderness noted. No clubbing or cyanosis. 2 + pedal edema noted NEUROLOGICAL: Focused neurological exam showed no significant neurologic deficit. Normal speech, no focal weakness appreciated. PSYCH: Normal mood, normal affect. Judgment and insight within normal limits. SKIN: No significant ecchymosis, rash, ulcerations or signs of pruritus noted. MUSCULOSKELETAL EXAM: No significant joint swelling noted. Results Laboratory Results: 08/01/17 05:53 08/01/17 05:53 08/01/17 08/01/17 05:53 05:53 WBC 6.3 RBC 3.51 L Hgb 9.3 L Hct 28.6 L MCV 82 MCH 26.4 L MCHC 32.4 RDW 20.0 H Plt Count 205 Seg Neutrophils % 74.4 Lymphocytes % 17.8 Monocytes % 7.6 Eosinophils % 0.0 Basophils % 0.2 Absolute Neutrophils 4.7 Absolute Lymphocytes 1.1 Absolute Monocytes 0.5 Absolute Eosinophils 0.0 Absolute Basophils 0.0 Sodium 142.3 Potassium 4.1 Chloride 98 Carbon Dioxide 34 H Anion Gap 10 BUN 32 H Creatinine 0.77 Est GFR ( Amer) > 60 Est GFR (Non-Af Amer) > 60 Glucose 139 H Calcium 8.9 07/27/17 16:45 NT-Pro-B Natriuret Pep 1470 H EKG Comments: Telemetry strips shows atrial fibrillation, heart rate reasonably well controlled Impressions: Chest X-Ray 07/27/17 11:21 IMPRESSION: No significant interval change. No acute findings. Other findings as noted above Assessment & Plan - Diagnosis (1) Chronic respiratory failure with hypoxia and hypercapnia Is this a current diagnosis for this admission?: Yes (2) Atrial fibrillation with RVR Is this a current diagnosis for this admission?: Yes (3) Acute on chronic diastolic heart failure Is this a current diagnosis for this admission?: Yes (4) COPD (chronic obstructive pulmonary disease) Qualifiers: COPD type: unspecified COPD Qualified Code(s): J44.9 - Chronic obstructive pulmonary disease, unspecified Is this a current diagnosis for this admission?: Yes (5) Diabetes mellitus type 2 in obese Is this a current diagnosis for this admission?: Yes (6) HLD (hyperlipidemia) Qualifiers: Hyperlipidemia type: unspecified Qualified Code(s): E78.5 - Hyperlipidemia , unspecified Is this a current diagnosis for this admission?: Yes (7) Hypertension Qualifiers: Hypertension type: essential hypertension Qualified Code(s): I10 - Essential (primary) hypertension Is this a current diagnosis for this admission?: Yes - Notes Notes: Chronic respiratory failure with hypoxemia and hypercarbia: Recommend good management of COPD. Also recommend intermittent positive pressure noninvasive ventilation. Patient informed that she would benefit from weight loss. Atrial fibrillation with RVR: Heart rate currently well controlled on current dose of rate control agents. Currently on Cardizem plus beta-royal. Continue Eliquis for chronic anticoagulation. Acute on chronic diastolic heart failure: Recommend intravenous diuretics, spironolactone therapy etc. edema seems slightly improved. Patient advised on salt and fluid restriction. Patient would benefit greatly from CHF education. COPD: Currently stable. Diabetes: Recommend good control of blood sugar but avoid any hyper or hypoglycemia. Hyperlipidemia: Recommend statin therapy. Hypertension: Currently is stable. Continue current regimen. - Time Time with patient: 15-25 minutes - More than 50% of the time spent coordinating care, discussing management plans with involved caregivers. Management plans discussed with involved personnels. Medical decision making was of moderate to high complexity, patient's has multiple comorbidities. Medications reviewed and adjusted accordingly: Yes
[2017-08-02] MEDS: IPRATROPIUM BROMIDE 0.02% NEB 0.5 MG/2.5 ML AMPUL NEB SCH ×2 (02:10→08:00)
[2017-08-02] MEDS: LEVALBUTEROL HCL NEB 1.25 MG/3 ML AMPUL NEB SCH ×2 (02:10→08:00)
[2017-08-02] MEDS: DILTIAZEM HCL 30 MG TABLET PO SCH (02:20)
[2017-08-02] MEDS: LANSOPRAZOLE 30 MG TAB.RAP.DR PO SCH (05:06)
[2017-08-02 08:03] VITALS: BP 103/44
--- NOTE | 2017-08-02 17:01 | PDOC DISCHARGE SUMMARY ---
General - Admit/Disc Date/PCP Admission Date/Primary Care Provider: 07/27/17 16:05 JADA WELSH Discharge Date: 08/02/17 - Discharge Diagnosis (1) Chronic hypoxemic respiratory failure Is this a current diagnosis for this admission?: Yes Summary: Secondary to CHF and COPD exacerbation. (2) COPD exacerbation Is this a current diagnosis for this admission?: Yes (3) Depression Is this a current diagnosis for this admission?: Yes (4) GERD (gastroesophageal reflux disease) Is this a current diagnosis for this admission?: Yes (5) Hypertension Is this a current diagnosis for this admission?: Yes (6) Acute on chronic diastolic heart failure Is this a current diagnosis for this admission?: Yes (7) CKD (chronic kidney disease), stage III Is this a current diagnosis for this admission?: Yes (8) Chronic atrial fibrillation Is this a current diagnosis for this admission?: Yes (9) Diabetes mellitus type 2 in obese Is this a current diagnosis for this admission?: Yes - Additional Information Resuscitation Status: Full Code Discharge Diet: Cardiac Discharge Activity: Activity As Tolerated Home Medications: Albuterol Sulfate [Ventolin Hfa] 2 puff IH Q4HP PRN 05/21/17 Apixaban [Eliquis] 5 mg PO Q12 05/21/17 Atorvastatin Calcium [Lipitor 40 mg Tablet] 40 mg PO DAILY 05/21/17 Furosemide [Lasix] 40 mg PO Q12 05/21/17 Losartan Potassium [Cozaar 25 mg Tablet] 25 mg PO Q12 05/21/17 Metformin HCl [Glucophage] 500 mg PO QAM 05/21/17 Metoprolol Succinate [Toprol Xl 25 mg Tab.sr] 25 mg PO DAILY 05/21/17 Omeprazole 40 mg PO DAILY 05/21/17 Paroxetine HCl [Paxil] 20 mg PO DAILY 05/21/17 Ranitidine HCl [Zantac] 300 mg PO QHS 05/21/17 Sennosides/Docusate Sodium [Senna-S Tablet] 2 tab PO HSP PRN 07/27/17 Diltiazem HCl [Diltiazem 24Hr Cd] 240 mg PO DAILY #30 cap.er.24h 08/02/17 Flu Vacc [id number] [id number] Up/Pf [Fluzone Adlt Quad [id number] Vac 0.5 ml Syr] 0.5 ml IM .DISCHARGE PRN disp.syrin 08/02/17 Prednisone [Deltasone 20 mg Tablet] 10 mg PO DAILY #21 tablet 08/02/17 History of Present Illness History of Present Illness: RACHEL LAN is a 82 year old female who has a history of COPD, diastolic congestive heart failure, chronic hypoxic respiratory failure chronically on 3 L nasal oxygen who was brought to the emergency room because of shortness of breath and dyspnea on exertion. The patient also had complaints of orthopnea and PND. Patient also was noted to have lower extremity edema. The patient had a recent admission at [place] for pneumonia. The patient has been sent to [place] after that. The patient denied any chest pain. Hospital Course Hospital Course: 82-year-old female with a history of diastolic congestive heart failure, COPD on chronic oxygen who presented with shortness of breath and acute on chronic respiratory hypoxic failure. Is felt to be a combination of the COPD and CHF as the cause for respiratory failure. Patient was treated initially with steroids and nebulizers for her COPD and also with antibiotics. Patient also was treated with IV Lasix for Treatment of her congestive heart failure. The patient had improvement in both of her conditions and her respiratory status returned to its baseline. Patient is chronically on 3 L of oxygen. The patient is to be put on a prednisone taper to go home and resume her normal p.o. Lasix dose. Physical Exam Vital Signs: Temp Pulse Resp BP Pulse Ox 97.9 F 89 16 103/44 L 90 L 08/02/17 09:32 08/02/17 09:32 08/02/17 09:32 08/02/17 09:32 08/02/17 09:32 Intake & Output 08/01/17 08/02/17 08/03/17 06:59 06:59 06:59 Intake Total 2430 1240 Output Total 1000 1300 Balance 1430 -60 Weight 123.5 kg 123.5 kg General appearance: PRESENT: no acute distress Eye exam: PRESENT: conjunctiva pink. ABSENT: scleral icterus Mouth exam: PRESENT: moist, tongue midline Neck exam: ABSENT: JVD Respiratory exam: PRESENT: clear to auscultation allyn. ABSENT: rales, rhonchi, wheezes Cardiovascular exam: PRESENT: RRR. ABSENT: diastolic murmur, rubs, systolic murmur GI/Abdominal exam: PRESENT: normal bowel sounds, soft. ABSENT: distended, guarding, mass, organolmegaly, rebound, tenderness Extremities exam: PRESENT: pedal edema, +1 edema. ABSENT: calf tenderness, clubbing Neurological exam: PRESENT: alert, awake, oriented to person, oriented to place , oriented to time, oriented to situation, CN II-XII grossly intact. ABSENT: motor sensory deficit Psychiatric exam: PRESENT: appropriate affect Skin exam: PRESENT: dry, intact, warm. ABSENT: cyanosis, rash Results Laboratory Results: 08/01/17 05:53 08/01/17 05:53 07/27/17 16:45 NT-Pro-B Natriuret Pep 1470 H Impressions: Chest X-Ray 07/27/17 11:21 IMPRESSION: No significant interval change. No acute findings. Other findings as noted above Qualifiers [place] BEING DISCHARGED WITH ANY OF THE FOLLOWING DIAGNOSIS?: No Plan Discharge Plan: Patient is discharged home. Will follow with primary care in 1-2 weeks. Time Spent: Greater than 30 Minutes
--- NOTE | 2017-08-02 19:54 | PDOC PROGRESS REPORT ---
Subjective Progress Note for:: 08/02/17 Subjective:: Patient was seen on morning rounds. Patient tells me that she is being discharged home. Patient still has significant pedal edema but without any shortness of breath. Telemetry strips reviewed it showed atrial fibrillation but controlled heart rate response. Physical Exam Vital Signs: Temp Pulse Resp BP Pulse Ox 97.9 F 89 16 103/44 L 90 L 08/02/17 09:32 08/02/17 09:32 08/02/17 09:32 08/02/17 09:32 08/02/17 09:32 Intake & Output 08/01/17 08/02/17 08/03/17 06:59 06:59 06:59 Intake Total 2430 1240 Output Total 1000 1300 Balance 1430 -60 Weight 123.5 kg 123.5 kg Exam: GENERAL: well-nourished and in no acute distress. Alert and oriented x3 HEAD: Atraumatic, normocephalic. EYES: Pupils equal round and reactive to light, extraocular movements intact, sclera anicteric, conjunctiva are normal. ENT: TMs normal, nares patent, oropharynx clear without exudates. Moist mucous membranes. No oral ulcerations or bleeding gums noted NECK: supple without lymphadenopathy. Trachea is central. No cervical or axillary lymphadenopathy noted. Carotids are 2+, JVD WNL LUNGS: Respiration seems nonlabored, no significant accessory muscle action noted. Breath sounds clear to auscultation bilaterally and equal noted. No wheezes rales or rhonchi noted. No significant dullness noted on percussion. CHEST: Palpation of the chest wall shows no significant chest wall tenderness. No other significant abnormalities noted. 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 ABDOMEN: Soft, no significant tenderness appreciated, normoactive bowel sounds. No guarding, no rebound. No rigidity noted . No masses appreciated. EXTREMITIES: Pedal pulses are 1-2+, no calf tenderness noted. No clubbing or cyanosis. 2 + pedal edema noted NEUROLOGICAL: Focused neurological exam showed no significant neurologic deficit. Normal speech, no focal weakness appreciated. PSYCH: Normal mood, normal affect. Judgment and insight within normal limits. SKIN: No significant ecchymosis, rash, ulcerations or signs of pruritus noted. MUSCULOSKELETAL EXAM: No significant joint swelling noted. Results Laboratory Results: 08/01/17 05:53 08/01/17 05:53 07/27/17 16:45 NT-Pro-B Natriuret Pep 1470 H EKG Comments: Atrial fibrillation with controlled ventricular response. Impressions: Chest X-Ray 07/27/17 11:21 IMPRESSION: No significant interval change. No acute findings. Other findings as noted above Assessment & Plan - Diagnosis (1) Chronic respiratory failure with hypoxia and hypercapnia Is this a current diagnosis for this admission?: Yes (2) Atrial fibrillation with RVR Is this a current diagnosis for this admission?: Yes (3) Acute on chronic diastolic heart failure Is this a current diagnosis for this admission?: Yes (4) COPD (chronic obstructive pulmonary disease) Qualifiers: COPD type: unspecified COPD Qualified Code(s): J44.9 - Chronic obstructive pulmonary disease, unspecified Is this a current diagnosis for this admission?: Yes (5) Diabetes mellitus type 2 in obese Is this a current diagnosis for this admission?: Yes (6) HLD (hyperlipidemia) Qualifiers: Hyperlipidemia type: unspecified Qualified Code(s): E78.5 - Hyperlipidemia , unspecified Is this a current diagnosis for this admission?: Yes (7) Hypertension Qualifiers: Hypertension type: essential hypertension Qualified Code(s): I10 - Essential (primary) hypertension Is this a current diagnosis for this admission?: Yes - Notes Notes: Chronic respiratory failure with hypoxemia and hypercarbia: Recommend good management of COPD. Also recommend intermittent positive pressure noninvasive ventilation. Patient informed that she would benefit from weight loss. Patient informed that she could follow-up with me if she wishes. Atrial fibrillation with RVR: Heart rate currently well controlled on current dose of rate control agents. Currently on Cardizem plus beta-royal. Continue Eliquis for chronic anticoagulation. Currently is stable. Acute on chronic diastolic heart failure: Recommend intravenous diuretics, spironolactone therapy etc. edema seems slightly improved. Patient advised on salt and fluid restriction. CHF pathway discussed with the patient with daily weighing, salt and fluid restriction and adjustment of diuretics as per daily weight.. COPD: Currently stable. Diabetes: Currently stable. Patient to follow-up with manager primary. Hyperlipidemia: Recommend statin therapy. Hypertension: Currently is stable. Continue current regimen. - Time Time with patient: 15-25 minutes - CODE STATUS was discussed, patient remains full code. Surrogate decision-maker patient's children. Multiple medical problems were addressed. More than 50% of the time spent coordinating care, discussing management plans with involved caregivers. Management plans discussed with involved personnels. Medical decision making was of moderate to high complexity, patient's has multiple comorbidities. Medications reviewed and adjusted accordingly: Yes
== END 2017-08-02 10:10 | disposition home health service (06) | DRG 190 ==
LOC: ER 11:14 → UNDOADMOB 13:41 → EH 13:41 → 5 14:50 → EH 14:50 → 5 16:05 → OBSVTOIN 16:05
PROC: 3E0F73Z Introduction of Anti-inflammatory into Respiratory Tract, Via Natural or Artificial Opening (ICD-10-PCS; principal; 2017-07-27)
DX: J44.1 Chronic obstructive pulmonary disease with (acute) exacerbation (principal); I50.33 Acute on chronic diastolic (congestive) heart failure; J96.21 Acute and chronic respiratory failure with hypoxia; I13.0 Hypertensive heart and chronic kidney disease with heart failure and stage 1 through stage 4 chronic kidney disease, or unspecified chronic kidney disease; E66.2 Morbid (severe) obesity with alveolar hypoventilation; Z68.42 Body mass index [BMI] 45.0-49.9, adult; E11.22 Type 2 diabetes mellitus with diabetic chronic kidney disease; N18.3 Chronic kidney disease, stage 3 (moderate); I48.91 Unspecified atrial fibrillation; K21.9 Gastro-esophageal reflux disease without esophagitis; M19.90 Unspecified osteoarthritis, unspecified site; F32.9 Major depressive disorder, single episode, unspecified; D64.9 Anemia, unspecified; I48.2 Chronic atrial fibrillation; E78.5 Hyperlipidemia, unspecified; Z99.81 Dependence on supplemental oxygen; Z87.891 Personal history of nicotine dependence; Z79.02 Long term (current) use of antithrombotics/antiplatelets
CPT/HCPCS: 36415; 71010; 80048; 80053; 81001; 82550; 82553; 82803; 82962; 83880; 84439; 84443; 84484; 85025; 85027; 90686; 93005; 93010; 94640; 96365; 99285; G8978-GP; G8979-GP; J0696; J1815; J1940; J2930; J3490; J7512; J7620